=== PATIENT | female | born 1955 | race Caucasian/White ===

== ENCOUNTER 2017-04-30 22:08 | Emergency (ER) | payer OTHER ==
[~2017-04-30] VITALS: Ht 152.4 cm; Wt 92.9 kg
[~2017-04-30 22:08] MED LIST: ASPI325T45 PO; ATEN50TA8 PO; CALC-20 PO; CHOL200010 PO; CITA20TA4 PO; CYAN500T13 PO; LISI-461 PO; MELO15TA4 PO; MULT-506 PO; OXYC-57 PO; SIMV20TA2 PO; TRAZ1TAB16 PO; ZNT/150 PO
[2017-04-30 22:14] VITALS: TEMP 36.8; Ht 152.4 cm; Wt 92.9 kg
[2017-05-01] MEDS ORDERED: OXYCODONE IR HOME PACK PO ONE (00:30)
[2017-05-01] MEDS ORDERED: AMOXICIL/CLAVU 875MG HOME PACK PO ONE (00:30)
[2017-05-01] MEDS ORDERED: AMPICILLIN/SULBACTAM SOD INJ 3,000 MG in SODIUM CHLORIDE 0.9% 100ML 100 ML IV ONE (00:30)
[2017-05-01 00:38] LABS: BASO % 0.2 %; BASO ABS # 0.03 K/uL (0-0.2); COMPLETE YES; EOS % 0.9 %; IG% 0.3 %; LYMPH % 27.2 %; LYMPH ABS # 4.18 K/uL (1.2-3.4); MEAN CELL VOLUME 94.5 fL (80-100); MEAN CORPUSCULAR HEMOGLOBIN 32.8 pg (25-34); MEAN CORPUSCULAR HGB CONC 34.7 g/dl (32-36); MEAN PLATELET VOLUME 10.2 fL (7.4-10.4); MONO % 10.3 %; NEUT % 61.1 %; PLATELET COUNT 234 K/uL (130-400); RED BLOOD COUNT 4.76 M/uL (4.2-5.4); WHITE BLOOD COUNT 15.36 K/uL (4.8-10.8)
[2017-05-01] MEDS ORDERED: AMOX875T PO (01:09)
[2017-05-01 01:12] LABS: BLOOD UREA NITROGEN 24 mg/dl (7-18); BUN/CREATININE RATIO 30.8 (10-20); CALCIUM 9.5 mg/dl (8.5-10.1); CARBON DIOXIDE 27 mmol/L (21-32); CHLORIDE 105 mmol/L (98-107); CREATININE 0.79 mg/dl (0.60-1.20); GLUCOSE 104 mg/dl (70-99); SODIUM 141 mmol/L (136-145)
[2017-05-01 01:13] VITALS: BP 138/76; PULSE 69; O2SAT 97
--- NOTE | 2017-05-01 04:14 | EMERGENCY ROOM VISIT NOTE ---
History Report prepared by Jonathan: Tiffany Downing Under the Supervision of: Dr. Ernie Lagos M.D. First contact with patient: 23:47 Chief Complaint: WOUND INFECTION Stated Complaint: PUNCTURES ON BACK OF LEFT KNEE MAY BE INFECTED Nursing Triage Summary: Pt reports she got bit by her cat behind left knee at 1215 today. Animal is fully vaccinated and is an indoor cat. Area is red and hot to the touch. 2 noted puncture wounds purple in color. History of Present Illness The patient is a 61 year old female who presents to the Emergency Room with complaints of an episode of a wound infection occurring this afternoon. The patient states that her cat and dog got into a fight and she stepped in between. She reports that the cat bit her in the back of her left leg. She notes that she went to her friend's this afternoon who cleaned it out. Her friend notes that it currently looks worse than it did this afternoon. The patient currently rates her pain as an 8/10 in severity. The patient denies any other bites anywhere else. Source of History: patient Onset: this afternoon Position: other (global) Symptom Intensity: 8/10 Quality: other (global) Timing: other (episode) Note: The patient denies any other bites. Review of Systems See HPI for pertinent positives and negatives. A total of six systems were reviewed and were otherwise negative. Past Medical & Surgical Medical Problems: (1) HTN (hypertension) (2) Rosacea Surgical Problems: (1) S/P cholecystectomy (2) S/P hysterectomy Family History Diabetes mellitus Hypertension Social History Smoking Status: Current Every Day Smoker Alcohol Use: occasionally Marital Status: single Housing Status: lives alone Occupation Status: employed Current/Historical Medications Scheduled Amoxicillin & Pot Clavulanate (Augmentin 875-125 mg), 875 MG PO BID Aspirin (Aspirin), 325 MG PO DAILY Atenolol (Tenormin), 50 MG PO DAILY Calcium Carbonate-Vitamin D (Calcium 600 + D), 1 TAB PO BID Cholecalciferol (Vitamin D), 2,000 INTER.UNIT PO DAILY Citalopram Hydrobromide (Citalopram Hydrobromide), 20 MG PO DAILY Cyanocobalamin (Vitamin B12 500MCG), 500 MCG PO DAILY Lisinopril (Zestril), 10 MG PO DAILY Meloxicam (Mobic), 15 MG PO DAILY Multivitamin (Multivitamin), 1 TAB PO DAILY Ranitidine Hcl (Zantac), 150 MG PO BID Simvastatin (Zocor), 20 MG PO HS Scheduled PRN Oxycodone/Acetaminophen 5MG/325MG (Percocet 5MG/325MG), 1-2 TABLETS PO Q6H PRN for Pain Trazodone Hcl (Desyrel), 100 MG PO HS PRN for Sleep Allergies Coded Allergies: No Known Allergies (Unverified , 02/18/15) Physical Exam Vital Signs Date Time Temp Pulse Resp B/P (MAP) Pulse Ox O2 Delivery O2 Flow Rate FiO2 05/01/17 01:13 69 20 138/76 97 Room Air 04/30/17 23:31 72 18 122/106 96 Room Air 04/30/17 22:14 36.8 74 18 129/65 97 Room Air Physical Exam GENERAL: Awake, alert, well-appearing, in no distress HENT: Normocephalic, atraumatic. Oropharynx unremarkable. EYES: Normal conjunctiva. Sclera non-icteric. NECK: Supple. No nuchal rigidity. FROM. No JVD. RESPIRATORY: Clear to auscultation. CARDIAC: Regular rate, normal rhythm. Extremities warm and well perfused. Pulses equal. ABDOMEN: Soft, non-distended. No tenderness to palpation. No rebound or guarding. No masses. MUSCULOSKELETAL: Chest examination reveals no tenderness. No joint edema. LOWER EXTREMITIES: Calves are equal size bilaterally and non-tender. No edema. Contusion and scratches to back or right leg popliteal. Left leg popliteal has erythema, contusion, and puncture wounds consistent with a cat bite. NEURO: Normal sensorium. No sensory or motor deficits noted. SKIN: No rash or jaundice noted. Medical Decision & Procedures Laboratory Results 05/01/17 00:25 Red Blood Count 4.76, Mean Corpuscular Volume 94.5, Mean Corpuscular Hemoglobin 32.8, Mean Corpuscular Hemoglobin Concent 34.7, Mean Platelet Volume 10.2, Neutrophils (%) (Auto) 61.1, Lymphocytes (%) (Auto) 27.2, Monocytes (%) (Auto) 10.3, Eosinophils (%) (Auto) 0.9, Basophils (%) (Auto) 0.2, Neutrophils # (Auto ) 9.39, Lymphocytes # (Auto) 4.18, Monocytes # (Auto) 1.58, Eosinophils # (Auto ) 0.14, Basophils # (Auto) 0.03 05/01/17 00:25 Test 05/01/17 00:25 White Blood Count 15.36 K/uL (4.8-10.8) Red Blood Count 4.76 M/uL (4.2-5.4) Hemoglobin 15.6 g/dL (12.0-16.0) Hematocrit 45.0 % (37-47) Mean Corpuscular Volume 94.5 fL (80-100) Mean Corpuscular Hemoglobin 32.8 pg (25-34) Mean Corpuscular Hemoglobin Concent 34.7 g/dl (32-36) Platelet Count 234 K/uL (130-400) Mean Platelet Volume 10.2 fL (7.4-10.4) Neutrophils (%) (Auto) 61.1 % Lymphocytes (%) (Auto) 27.2 % Monocytes (%) (Auto) 10.3 % Eosinophils (%) (Auto) 0.9 % Basophils (%) (Auto) 0.2 % Neutrophils # (Auto) 9.39 K/uL (1.4-6.5) Lymphocytes # (Auto) 4.18 K/uL (1.2-3.4) Monocytes # (Auto) 1.58 K/uL (0.11-0.59) Eosinophils # (Auto) 0.14 K/uL (0-0.5) Basophils # (Auto) 0.03 K/uL (0-0.2) RDW Standard Deviation 43.1 fL (36.4-46.3) RDW Coefficient of Variation 12.5 % (11.5-14.5) Immature Granulocyte % (Auto) 0.3 % Immature Granulocyte # (Auto) 0.04 K/uL (0.00-0.02) Anion Gap 9.0 mmol/L (3-11) Est Creatinine Clear Calc Drug Dose 77.1 ml/min Estimated GFR () 94.3 Estimated GFR (Non- 81.4 BUN/Creatinine Ratio 30.8 (10-20) Calcium Level 9.5 mg/dl (8.5-10.1) Medications Administered Medications (Trade) Dose Ordered Sig/Gustavo Route Start Time Stop Time Status Last Admin Dose Admin Ampicillin Sodium/ Sulbactam Sodium 3000 mg/Sodium Chloride 108 ml @ 200 mls/hr ONE ONCE IV 05/01/17 00:30 05/01/17 01:02 DC 05/01/17 00:50 200 MLS/HR Amoxicillin/ Clavulanate Potassium (Augmentin 875MG Home Pack) 1 homepack UD ONCE PO 05/01/17 00:30 05/01/17 00:31 DC 05/01/17 01:09 1 HOMEPACK Oxycodone HCl (Roxicodone Immediate Rel 5MG Home Pack) 1 homepack UD ONCE PO 05/01/17 00:30 05/01/17 00:31 DC 05/01/17 01:09 1 HOMEPACK ED Course 0016: The patient was evaluated in room A9B. A complete history and physical exam was performed. 0030: Ordered Oxycodone HCl 1 homepack PO, Amoxicillin/ Clavulanate Potassium 1 homepack PO, Ampicillin Sodium/ Sulbactam Sodium 3000 mg/ Sodium Chloride 108 ml @ 200 mls/hr IV. 0120: I reevaluated the patient. Discussed results and discharge instructions: She verbalized understanding and agreement. The patient is ready for discharge. Medical Decision Medication Reconciliation: I attest that I have personally reviewed the patient' s current medication list Blood pressure screening: Patient was found to have an elevated blood pressure and was referred to their primary doctor for recheck and further treatment. Triage Nursing notes reviewed and agree them. The patient's history was concerning for swelling and redness of the skin. Differential diagnosis: Etiologies such as cellulitis, necrotizing fasciitis, abscess, MRSA infection, dermatitis, drug eruption, as well as others were entertained.. Physical examination: The physical examination was consistent with cellulitis ER treatment provided: IV Unasyn Augmentin home pack Oxycodone home pack On reassessment the patient felt well. Tetanus up-to-date Diagnostics interpreted by me: The labs revealed a moderate leukocytosis. This appears to be isolated cellulitis from a cat bite. The animal is hers and is healthy. By the evaluation outlined above emergent etiologies such as abscess, necrotizing fasciitis, DVT, as well as others were deemed relatively unlikely. The patient was informed about the findings as listed above. All questions were answered and she was pleased with the treatment. Return instructions were outlined and the patient was discharged in stable condition. Outpatient prescription management: Augmentin Oxycodone home pack given as the patient drove to the emergency department Referral: The patient was referred back to her primary care physician for follow-up in 2 to 3 days for a recheck of the current condition. Impression Primary Impression: Left leg cellulitis Additional Impression: Bite from cat Scribe Attestation The scribe's documentation has been prepared under my direction and personally reviewed by me in its entirety. I confirm that the note above accurately reflects all work, treatment, procedures, and medical decision making performed by me. Departure Information Dispostion Home / Self-Care Prescriptions Amoxicillin & Pot Clavulanate (Augmentin 875-125 mg) 1 Tab Tab 875 MG PO BID for 9 Days, #18 TAB Prov: Ernie Lagos MD 05/01/17 Referrals Elizabeth Combs M.D. (PCP) Forms HOME CARE DOCUMENTATION FORM, IMPORTANT VISIT INFORMATION, WORK / SCHOOL INSTRUCTIONS Patient Instructions My [facility] Additional Instructions CELLULITIS INSTRUCTIONS: Amoxicillin Clavulanate (Augmentin) 875mg: Take one pill twice daily for 10 days for your infection. All antibiotics can cause diarrhea. If this occurs and you feel worse or it does not resolve in 1-2 days follow up with your doctor or return to the Emergency Department as this could be signs of serious underlying problems. Any medication can cause an allergic reaction, stop the pills immediately and return to the ER for rash, hives, breathing difficulties, or swelling. Oxycodone (OxyIR) 5mg: Take 1-2 pills every four hours as needed for breakthrough pain. Avoid alcohol, operating machinery or dangerous equipment, working on ladders or roofs, DRIVING, or situations where being under the influence may be dangerous. It is recommended to use a stool softener such as Colace, 100mg twice daily while taking this medication to avoid constipation. Ibuprofen(Motrin, Advil) may be used for fever or pain. Use 600mg every six hours as needed. Take with food. Avoid using more than 2400mg in a 24 hour period. Do not use 2400mg per day for more than three consecutive days without physician direction. Prolonged inappropriate use can lead to stomach upset or ulcers. (AND/OR) Acetaminophen(Tylenol) may be used for fever or pain. Use 1000mg every six hours as needed. Avoid using more than 4000mg in a 24 hour period. Warm compresses to the affected area 4 times daily for 15-20 minutes. Rest and drink plenty of fluids. Continue current medications. Return to the ER for severe pain, persistent fevers, spreading redness, or any worsening of your condition. Follow up with your primary physician within 2-3 days for a recheck of the current condition. Problem Qualifiers Additional Impression: Bite from cat Encounter type: initial encounter Qualified Codes: W55.01XA - Bitten by cat , initial encounter
== END 2017-05-01 01:20 | disposition home or self-care (01) ==
LOC: C.EDB 22:09 → C.EDA 05-01 01:20
DX: L03.90 Cellulitis, unspecified (principal); W55.01XA Bitten by cat, initial encounter; I10 Essential (primary) hypertension; L71.9 Rosacea, unspecified; Z83.3 Family history of diabetes mellitus; Z82.49 Family history of ischemic heart disease and other diseases of the circulatory system; F17.200 Nicotine dependence, unspecified, uncomplicated; Z79.82 Long term (current) use of aspirin

== ENCOUNTER 2023-04-27 14:30 | Inpatient (IN) ==
[2023-04-27] MEDS ORDERED: SODIUM CHLORIDE 0.9% 1000ML 1,000 ML IV ONE ×3 (14:34→19:34)
[2023-04-27] MEDS ORDERED: SODIUM CHLORIDE 0.9% 1000ML 2,000 ML IV ONE (14:38)
[2023-04-27] MEDS ORDERED: PIPERACILLIN/TAZOBACTAM 4.5 GM/120 ML BAG IV ONE (14:38)
[2023-04-27] MEDS ORDERED: ONDANSETRON INJ 2 MG/ML 2 ML VIAL ONE (14:42)
--- NOTE | 2023-04-27 14:43 | Emergency Department Note ---
Impression & Plan Sepsis, Pyelonephritis, Acute hypotension ED Provider Note NAME: FANY PUGH AGE: 67 SEX: F : 1955 ARRIVES VIA: Ambulance INFORMANT: Patient, EMS ED PROVIDER(S): Daren Jennings DO CHIEF COMPLAINT: syncope HPI: Patient is a 67-year-old female with a past medical history of hyperlipidemia who presents to the ER for a syncopal episode. She has been having urinary symptoms which include frequency and dysuria for the past 2 to 3 days. She started on antibiotic today. She went to the doctor's office and became very lightheaded and passed out. She has vomited. She denies any headache or change in vision. No chest pain but does admit to shortness of breath with started around 1:00. She does have lower belly pain. No weakness or numbness in the arms or legs. No other exacerbating or remitting factors. PAST MEDICAL HISTORY:See Below PAST SURGICAL HISTORY:See Below FAMILY HISTORY:See Below SOCIAL HISTORY:See Below HOME MEDICATIONS:See Below ALLERGIES:See Below VITALS:See Below PHYSICAL EXAMINATION: GENERAL: Sitting up in bed, alert, chronically ill-appearing, disheveled EYE EXAM: normal conjunctiva. PERRL and EOM's grossly intact. OROPHARYNX: mucous membranes are dry NECK: supple, no nuchal rigidity, no adenopathy, non-tender LUNGS: Clear to auscultation. Normal chest wall mechanics HEART: no murmurs, S1 normal and S2 normal ABDOMEN: abdomen soft, non-tender, normo-active bowel sounds, no masses, no rebound or guarding. BACK: Back is symmetrical on inspection and there is no deformity, no midline tenderness, no CVA tenderness. SKIN: no rashes and no bruising UPPER EXTREMITIES: upper extremities are grossly normal. LOWER EXTREMITIES: No pitting edema. NEURO EXAM: Normal sensorium, cranial nerves II-XII intact, normal speech, no weakness of arms, no weakness of legs. No drift. MEDICAL DECISION MAKING: Patient is a 67-year-old female brought in by EMS found to be hypotensive and tachycardic upon arrival with systolic pressures in the 70s. IVs were established blood work was obtained. External records were reviewed from [facility] which shows that she had a UTI and just started on Bactrim. Labs show mild leukopenia 3.5 thousand. No significant anemia. INR unremarkable. ABG with pH 7.35 and oxygen saturation of 95%. BMP with a CO2 of 19 and a gap of 13. Lactate was elevated at 2.3. Patient was given 2 L of IV fluids. LFTs bilirubin was unremarkable. Troponin was negative. Pro-Hermelindo normal. UA with leukocytes whites but was contaminated with epithelial cells. COVID was negative. Patient was given IV Zosyn upon arrival. Her blood pressure responded after 1 L to the 140s. CT of the chest abdomen pelvis showed pyelonephritis. Patient was updated bedside. Patient was given Tylenol for the fever. She was admitted to the hospitalist for further evaluation management treatment. Triage Nursing notes reviewed. Limited review of prior medical records performed Vital Signs: reviewed and remarkable for no significant abnormalities Differential diagnosis: Differential diagnosis includes etiologies such as sepsis, UTI, pneumonia, metabolic, electrolyte abnormalities, cardiac sources, intracerebral event, toxicologic, neurological, as well as others were entertained. ER treatment provided: See below Diagnostics interpreted by me include EKG and cardiac monitoring as listed below: -Cardiac Monitoring: An order was placed for continuous cardiac monitoring. The monitor shows a rate of 90 with sinus rhythm. -ECG: Sinus rhythm rate of 96 Normal axis No PVCs Poor baseline inferior leads QTc 444 -Laboratory studies:Interpreted by me as stated above in MDM and shown below. Imaging studies: Xrays: As interpreted by me:none CTs show: CT angio of the chest per my read showed no obvious pneumonia CT angio of the chest and abdomen pelvis showed pyelonephritis per radiology Consultation(s): As described in MDM Procedures:none Critical Care: I have personally spent 32 minutes of critical care time in the direct management of this patient. This includes bedside care, interpretation of diagnostic studies, and testing, discussion with consultants, patient, and family members, and other required patient management activities. This 32 minutes is in excess of all separately billable procedures. Past Med/Surg History Medical History Chronic diastolic CHF (congestive heart failure) DM type 2 (diabetes mellitus, type 2) GERD (gastroesophageal reflux disease) HTN (hypertension) Hyperlipidemia MANN (nonalcoholic steatohepatitis) Surgical History History of shoulder surgery History of spinal fusion Postop course complicated by infection and sepsis S/P cholecystectomy S/P hysterectomy S/P rotator cuff repair Social History Smoking Status: Current every day smoker Feels Safe at Home: Yes Allergies Allergies Allergy/AdvReac Type Severity Reaction Status Date / Time No Known Allergies Allergy Mild Unverified 04/27/23 15:26 Home Meds Home Medications Medication Instructions Recorded Confirmed atenolol 50 mg tablet 50 mg PO QAM 06/30/20 04/27/23 atorvastatin 40 mg tablet 40 mg PO QAM 06/30/20 04/27/23 cholecalciferol (vitamin D3) 50 50 mcg PO QAM 06/30/20 04/27/23 mcg (2,000 unit) capsule (Vitamin D3) famotidine 20 mg tablet 20 mg PO AMHS 06/30/20 04/27/23 gabapentin 300 mg capsule 300 mg PO TID 06/30/20 04/27/23 multivitamin 1 tab PO QAM 06/30/20 04/27/23 trazodone 50 mg tablet 50 mg PO HS 06/30/20 04/27/23 calcium carb-vit D3-minerals 600 2.5 tab PO DAILY 04/27/23 04/27/23 mg calcium-200 unit tablet (Calcium 600 + Minerals) ferrous sulfate 325 mg (65 mg 325 mg PO BID 04/27/23 04/27/23 iron) tablet lisinopril 20 mg tablet 20 mg PO QAM 04/27/23 04/27/23 semaglutide 0.25 mg or 0.5 mg (2 1 mg subcut WK 04/27/23 04/27/23 mg/3 mL) subcutaneous pen injector (Ozempic) sertraline 100 mg tablet 100 mg PO DAILY 04/27/23 04/27/23 sulfamethoxazole 800 1 tab PO BID 04/27/23 04/27/23 mg-trimethoprim 160 mg tablet varenicline 0.5 mg (11)-1 mg (42) 1 ea PO UD 04/27/23 04/27/23 tablets in a dose pack Results & Data (ED) Vital Signs Vital Signs - 24 hr 04/27/23 14:34 04/27/23 15:16 04/27/23 15:16 Temperature Temperature Source Pulse Rate 96 H Pulse Rate [Apical] 99 H Pulse Rate from SpO2 Sensor Respiratory Rate 16 20 Respiratory Effort / Characteristics Non-Labored Spontaneous Respiratory Depth Normal Respiratory Pattern Regular Blood Pressure 71/52 L Blood Pressure [Left Arm] 135/112 H Blood Pressure Mean 58 Blood Pressure Mean [Left Arm] 119 Blood Pressure Position Sitting Pulse Oximetry 91 91 Oxygen Delivery Method Nasal Cannula Nasal Cannula Oxygen Flow Rate 2 2 Sepsis Recent Fever Within 48 Hours No Sepsis New/Unexplained Change in Mental Status N/A Sepsis Action Taken by Nursing No Action Required Pulse Oximetry Post Tiitration 04/27/23 15:38 04/27/23 16:00 04/27/23 16:07 Temperature 38.5 C H Temperature Source Rectal Pulse Rate 111 H Pulse Rate [Apical] 105 H Pulse Rate from SpO2 Sensor Respiratory Rate 20 Respiratory Effort / Characteristics Non-Labored Respiratory Depth Respiratory Pattern Blood Pressure Blood Pressure [Left Arm] 145/119 H Blood Pressure Mean Blood Pressure Mean [Left Arm] 127 Blood Pressure Position Pulse Oximetry 90 Oxygen Delivery Method Nasal Cannula Nasal Cannula Oxygen Flow Rate 2 2 Sepsis Recent Fever Within 48 Hours Sepsis New/Unexplained Change in Mental Status Sepsis Action Taken by Nursing Pulse Oximetry Post Tiitration 95 04/27/23 16:07 04/27/23 16:18 04/27/23 16:33 Temperature Temperature Source Pulse Rate Pulse Rate [Apical] 109 H 106 H 103 H Pulse Rate from SpO2 Sensor Respiratory Rate 20 25 H 24 Respiratory Effort / Characteristics Respiratory Depth Respiratory Pattern Blood Pressure Blood Pressure [Left Arm] 131/73 106/63 103/67 Blood Pressure Mean Blood Pressure Mean [Left Arm] 92 77 79 Blood Pressure Position Pulse Oximetry 95 96 96 Oxygen Delivery Method Nasal Cannula Nasal Cannula Nasal Cannula Oxygen Flow Rate 2 2 2 Sepsis Recent Fever Within 48 Hours Sepsis New/Unexplained Change in Mental Status Sepsis Action Taken by Nursing Pulse Oximetry Post Tiitration 04/27/23 17:33 04/27/23 15:12 04/27/23 15:13 Temperature 36.9 C Temperature Source Oral Pulse Rate 100 H 99 H 95 H Pulse Rate [Apical] Pulse Rate from SpO2 Sensor 96 H Respiratory Rate 33 H 27 H 37 H Respiratory Effort / Characteristics Respiratory Depth Respiratory Pattern Blood Pressure 94/68 L Blood Pressure [Left Arm] Blood Pressure Mean Blood Pressure Mean [Left Arm] Blood Pressure Position Pulse Oximetry 93 Oxygen Delivery Method Room Air Oxygen Flow Rate Sepsis Recent Fever Within 48 Hours Sepsis New/Unexplained Change in Mental Status Sepsis Action Taken by Nursing Pulse Oximetry Post Tiitration 04/27/23 15:13 04/27/23 15:34 04/27/23 15:37 Temperature Temperature Source Pulse Rate 108 H 107 H Pulse Rate [Apical] Pulse Rate from SpO2 Sensor Respiratory Rate 30 H 23 Respiratory Effort / Characteristics Respiratory Depth Respiratory Pattern Blood Pressure 135/112 H Blood Pressure [Left Arm] Blood Pressure Mean 119 Blood Pressure Mean [Left Arm] Blood Pressure Position Pulse Oximetry Oxygen Delivery Method Oxygen Flow Rate Sepsis Recent Fever Within 48 Hours Sepsis New/Unexplained Change in Mental Status Sepsis Action Taken by Nursing Pulse Oximetry Post Tiitration 04/27/23 15:37 04/27/23 15:40 04/27/23 15:40 Temperature Temperature Source Pulse Rate 108 H Pulse Rate [Apical] Pulse Rate from SpO2 Sensor Respiratory Rate 34 H Respiratory Effort / Characteristics Respiratory Depth Respiratory Pattern Blood Pressure 145/119 H 146/72 H Blood Pressure [Left Arm] Blood Pressure Mean 127 96 Blood Pressure Mean [Left Arm] Blood Pressure Position Pulse Oximetry Oxygen Delivery Method Oxygen Flow Rate Sepsis Recent Fever Within 48 Hours Sepsis New/Unexplained Change in Mental Status Sepsis Action Taken by Nursing Pulse Oximetry Post Tiitration 04/27/23 15:45 04/27/23 15:45 04/27/23 15:50 Temperature Temperature Source Pulse Rate 112 H Pulse Rate [Apical] Pulse Rate from SpO2 Sensor Respiratory Rate 31 H Respiratory Effort / Characteristics Respiratory Depth Respiratory Pattern Blood Pressure 140/74 153/71 H Blood Pressure [Left Arm] Blood Pressure Mean 96 98 Blood Pressure Mean [Left Arm] Blood Pressure Position Pulse Oximetry Oxygen Delivery Method Oxygen Flow Rate Sepsis Recent Fever Within 48 Hours Sepsis New/Unexplained Change in Mental Status Sepsis Action Taken by Nursing Pulse Oximetry Post Tiitration 04/27/23 15:50 04/27/23 15:55 04/27/23 15:55 Temperature Temperature Source Pulse Rate 113 H 111 H Pulse Rate [Apical] Pulse Rate from SpO2 Sensor Respiratory Rate 23 35 H Respiratory Effort / Characteristics Respiratory Depth Respiratory Pattern Blood Pressure 120/84 Blood Pressure [Left Arm] Blood Pressure Mean 96 Blood Pressure Mean [Left Arm] Blood Pressure Position Pulse Oximetry Oxygen Delivery Method Oxygen Flow Rate Sepsis Recent Fever Within 48 Hours Sepsis New/Unexplained Change in Mental Status Sepsis Action Taken by Nursing Pulse Oximetry Post Tiitration 04/27/23 16:00 04/27/23 16:00 04/27/23 16:05 Temperature Temperature Source Pulse Rate 117 H Pulse Rate [Apical] Pulse Rate from SpO2 Sensor Respiratory Rate 25 H Respiratory Effort / Characteristics Respiratory Depth Respiratory Pattern Blood Pressure 146/88 H 131/73 Blood Pressure [Left Arm] Blood Pressure Mean 107 92 Blood Pressure Mean [Left Arm] Blood Pressure Position Pulse Oximetry Oxygen Delivery Method Oxygen Flow Rate Sepsis Recent Fever Within 48 Hours Sepsis New/Unexplained Change in Mental Status Sepsis Action Taken by Nursing Pulse Oximetry Post Tiitration 04/27/23 16:05 04/27/23 16:10 04/27/23 16:10 Temperature Temperature Source Pulse Rate 110 H 107 H Pulse Rate [Apical] Pulse Rate from SpO2 Sensor 107 H Respiratory Rate 20 27 H Respiratory Effort / Characteristics Respiratory Depth Respiratory Pattern Blood Pressure 121/75 Blood Pressure [Left Arm] Blood Pressure Mean 90 Blood Pressure Mean [Left Arm] Blood Pressure Position Pulse Oximetry 96 Oxygen Delivery Method Nasal Cannula Oxygen Flow Rate 2 Sepsis Recent Fever Within 48 Hours Sepsis New/Unexplained Change in Mental Status Sepsis Action Taken by Nursing Pulse Oximetry Post Tiitration 04/27/23 16:15 04/27/23 16:15 04/27/23 16:25 Temperature Temperature Source Pulse Rate 109 H 104 H Pulse Rate [Apical] Pulse Rate from SpO2 Sensor 109 H 104 H Respiratory Rate 27 H 39 H Respiratory Effort / Characteristics Respiratory Depth Respiratory Pattern Blood Pressure 106/63 Blood Pressure [Left Arm] Blood Pressure Mean 77 Blood Pressure Mean [Left Arm] Blood Pressure Position Pulse Oximetry 96 96 Oxygen Delivery Method Nasal Cannula Nasal Cannula Oxygen Flow Rate 2 2 Sepsis Recent Fever Within 48 Hours Sepsis New/Unexplained Change in Mental Status Sepsis Action Taken by Nursing Pulse Oximetry Post Tiitration 04/27/23 16:30 04/27/23 16:30 04/27/23 16:40 Temperature Temperature Source Pulse Rate 105 H 105 H Pulse Rate [Apical] Pulse Rate from SpO2 Sensor 105 H 105 H Respiratory Rate 19 44 H Respiratory Effort / Characteristics Respiratory Depth Respiratory Pattern Blood Pressure 103/67 Blood Pressure [Left Arm] Blood Pressure Mean 78 Blood Pressure Mean [Left Arm] Blood Pressure Position Pulse Oximetry 98 96 Oxygen Delivery Method Nasal Cannula Oxygen Flow Rate 2 Sepsis Recent Fever Within 48 Hours Sepsis New/Unexplained Change in Mental Status Sepsis Action Taken by Nursing Pulse Oximetry Post Tiitration 04/27/23 16:45 04/27/23 16:45 04/27/23 16:50 Temperature Temperature Source Pulse Rate 103 H 102 H Pulse Rate [Apical] Pulse Rate from SpO2 Sensor 103 H 103 H Respiratory Rate 34 H 23 Respiratory Effort / Characteristics Respiratory Depth Respiratory Pattern Blood Pressure 117/70 Blood Pressure [Left Arm] Blood Pressure Mean 77 Blood Pressure Mean [Left Arm] Blood Pressure Position Pulse Oximetry 98 96 Oxygen Delivery Method Nasal Cannula Nasal Cannula Oxygen Flow Rate 2 2 Sepsis Recent Fever Within 48 Hours Sepsis New/Unexplained Change in Mental Status Sepsis Action Taken by Nursing Pulse Oximetry Post Tiitration 04/27/23 17:00 04/27/23 17:00 04/27/23 17:10 Temperature Temperature Source Pulse Rate 101 H 100 H Pulse Rate [Apical] Pulse Rate from SpO2 Sensor 101 H 100 H Respiratory Rate 25 H 39 H Respiratory Effort / Characteristics Respiratory Depth Respiratory Pattern Blood Pressure 136/73 Blood Pressure [Left Arm] Blood Pressure Mean 86 Blood Pressure Mean [Left Arm] Blood Pressure Position Pulse Oximetry 96 97 Oxygen Delivery Method Nasal Cannula Nasal Cannula Oxygen Flow Rate 2 2 Sepsis Recent Fever Within 48 Hours Sepsis New/Unexplained Change in Mental Status Sepsis Action Taken by Nursing Pulse Oximetry Post Tiitration 04/27/23 17:15 04/27/23 17:15 04/27/23 17:20 Temperature Temperature Source Pulse Rate 100 H 98 H Pulse Rate [Apical] Pulse Rate from SpO2 Sensor 100 H 98 H Respiratory Rate 33 H 37 H Respiratory Effort / Characteristics Respiratory Depth Respiratory Pattern Blood Pressure 128/72 Blood Pressure [Left Arm] Blood Pressure Mean 96 Blood Pressure Mean [Left Arm] Blood Pressure Position Pulse Oximetry 97 97 Oxygen Delivery Method Nasal Cannula Nasal Cannula Oxygen Flow Rate 2 2 Sepsis Recent Fever Within 48 Hours Sepsis New/Unexplained Change in Mental Status Sepsis Action Taken by Nursing Pulse Oximetry Post Tiitration 04/27/23 17:30 04/27/23 17:30 Temperature Temperature Source Pulse Rate 98 H Pulse Rate [Apical] Pulse Rate from SpO2 Sensor 100 H Respiratory Rate 31 H Respiratory Effort / Characteristics Respiratory Depth Respiratory Pattern Blood Pressure 113/73 Blood Pressure [Left Arm] Blood Pressure Mean 82 Blood Pressure Mean [Left Arm] Blood Pressure Position Pulse Oximetry 99 Oxygen Delivery Method Nasal Cannula Nasal Cannula Oxygen Flow Rate 2 2 Sepsis Recent Fever Within 48 Hours Sepsis New/Unexplained Change in Mental Status Sepsis Action Taken by Nursing Pulse Oximetry Post Tiitration Laboratory Data 04/27/23 15:13 04/27/23 15:13 Lab Results 04/27/23 04/27/2323 Range/Units 15:02 15:13 15:13 WBC 3.54 L (4.8-10.8) K/ul RBC 4.82 (4.20-5.40) M/uL Hgb 15.5 (12.0-16.0) g/dl POC Hgb (12.0-16.0) g/dl Hct 45.4 (37.0-47.0) % POC Hct (37-47) % MCV 94.2 (80.0-100.0) fL MCH 32.2 (25.0-34.0) pg MCHC 34.1 (32.0-36.0) g/dL RDW Std Deviation 41.7 (36.4-46.3) fL RDW Coeff of [place] 12.0 (11.5-14.5) % Plt Count 141 (130-400) K/uL MPV 10.2 (9.4-12.4) fL Immature Gran % (Auto) 0.8 % Neut % (Auto) 73.8 % Lymph % (Auto) 24.0 % Carbon % (Auto) 1.1 % Eos % (Auto) 0.0 % Baso % (Auto) 0.3 % Neut # (Auto) 2.61 (1.40-6.50) K/uL Lymph # (Auto) 0.85 L (1.2-3.4) K/uL Carbon # (Auto) 0.04 L (0.11-0.59) K/uL Eos # (Auto) 0.00 (0-0.50) K/uL Baso # (Auto) 0.01 (0-0.2) K/uL Immature Gran # (Auto) 0.03 (0.01-0.20) K/uL PT (9.0-12.0) Seconds INR (0.9-1.1) APTT (21.0-31.0) Seconds PTT Ratio ABG pH (7.35-7.45) ABG pCO2 (35-46) mmHg ABG pO2 (80-95) mmHg ABG HCO3 (19-24) mmol/L ABG O2 Saturation (90-95) % ABG Base Excess (-9-1.8) mEq/L Jonah Test (Pos) Oxygen Given POC Sodium (135-144) mmol/L Sodium 138 (136-145) mmol/L POC Potassium (3.3-5.0) mmol/L Potassium 3.8 (3.5-5.1) mmol/L POC Chloride (101-112) mmol/L Chloride 106 (98-107) mmol/L Carbon Dioxide 19 L (21-32) mmol/L POC Total CO2 (24-31) mmol/L Anion Gap 13 H (3-11) POC Anion Gap (16-25) mmol/L POC BUN (7-18) mg/dl BUN 20 (6-23) mg/dl Creatinine 1.10 (0.6-1.2) mg/dl POC Creatinine (0.6-1.3) mg/dl Est Cr Clr Drug Dosing 49.0 ml/min Est GFR ( Amer) 60.6 ml/min Est GFR (Non-Af Amer) 52.3 ml/min BUN/Creatinine Ratio 18.2 (10-20) Glucose 194 H (70-99(Fasting)) mg/dl POC Glucose (other) (70-99) mg/dl Lactate (0.4-2.0) mmol/L Calcium 9.3 (8.6-10.3) mg/dl POC Ioniz Calcium [place] (1.12-1.32) mmol/l Magnesium 1.9 (1.7-2.4) mg/dl Total Bilirubin 0.4 (0.2-1.0) mg/dl Direct Bilirubin 0.1 (0-0.2) mg/dl AST 20 (13-39) U/L ALT 23 (7-52) U/L Alkaline Phosphatase 63 (34-104) U/L Troponin I High Sens 5.7 (0-14) pg/ml B-Natriuretic Peptide (0-100) pg/ml Total Protein 7.0 (6.0-8.3) gm/dl Albumin 4.1 (3.4-5.0) gm/dl Procalcitonin (0-0.5) ng/ml Urine Color Urine Appearance (Clear) Urine pH (4.5-7.5) Ur Specific [place] (1.000-1.030) Urine Protein (Negative) Urine Glucose (UA) (Negative) Urine Ketones (Negative) Urine Blood (Negative) Urine Nitrite (Negative) Urine Bilirubin (Negative) Urine Urobilinogen (Negative) Ur Leukocyte Esterase (Negative) Urine WBC (Auto) (0-5) /hpf Urine RBC (Auto) (0-4) /hpf U Hyaline Cast (Auto) (0-5) /lpf U Epithel Cells (Auto) (0-5) /lpf Urine Bacteria (Auto) (Negative) Urine Yeast SARS-CoV-2, RNA, NAAT NEGATIVE (NEGATIVE) Blood Type Antibody Screen 04/27/23 04/27/23 04/27/23 Range/Units 15:13 15:52 15:52 WBC (4.8-10.8) K/ul RBC (4.20-5.40) M/uL Hgb (12.0-16.0) g/dl POC Hgb 16.0 (12.0-16.0) g/dl Hct (37.0-47.0) % POC Hct 47 (37-47) % MCV (80.0-100.0) fL MCH (25.0-34.0) pg MCHC (32.0-36.0) g/dL RDW Std Deviation (36.4-46.3) fL RDW Coeff of [place] (11.5-14.5) % Plt Count (130-400) K/uL MPV (9.4-12.4) fL Immature Gran % (Auto) % Neut % (Auto) % Lymph % (Auto) % Carbon % (Auto) % Eos % (Auto) % Baso % (Auto) % Neut # (Auto) (1.40-6.50) K/uL Lymph # (Auto) (1.2-3.4) K/uL Carbon # (Auto) (0.11-0.59) K/uL Eos # (Auto) (0-0.50) K/uL Baso # (Auto) (0-0.2) K/uL Immature Gran # (Auto) (0.01-0.20) K/uL PT 10.6 (9.0-12.0) Seconds INR 1.0 (0.9-1.1) APTT 22.5 (21.0-31.0) Seconds PTT Ratio 0.8 ABG pH (7.35-7.45) ABG pCO2 (35-46) mmHg ABG pO2 (80-95) mmHg ABG HCO3 (19-24) mmol/L ABG O2 Saturation (90-95) % ABG Base Excess (-9-1.8) mEq/L Jonah Test (Pos) Oxygen Given POC Sodium 135 (135-144) mmol/L Sodium (136-145) mmol/L POC Potassium 6.0 H (3.3-5.0) mmol/L Potassium (3.5-5.1) mmol/L POC Chloride 110 (101-112) mmol/L Chloride (98-107) mmol/L Carbon Dioxide (21-32) mmol/L POC Total CO2 18 L (24-31) mmol/L Anion Gap (3-11) POC Anion Gap 14.0 L (16-25) mmol/L POC BUN 29 H (7-18) mg/dl BUN (6-23) mg/dl Creatinine (0.6-1.2) mg/dl POC Creatinine 0.9 (0.6-1.3) mg/dl Est Cr Clr Drug Dosing ml/min Est GFR ( Amer) ml/min Est GFR (Non-Af Amer) ml/min BUN/Creatinine Ratio (10-20) Glucose (70-99(Fasting)) mg/dl POC Glucose (other) 177 H (70-99) mg/dl Lactate 2.4 H* (0.4-2.0) mmol/L Calcium (8.6-10.3) mg/dl POC Ioniz Calcium [place] 0.86 L (1.12-1.32) mmol/l Magnesium (1.7-2.4) mg/dl Total Bilirubin (0.2-1.0) mg/dl Direct Bilirubin (0-0.2) mg/dl AST (13-39) U/L ALT (7-52) U/L Alkaline Phosphatase (34-104) U/L Troponin I High Sens (0-14) pg/ml B-Natriuretic Peptide (0-100) pg/ml Total Protein (6.0-8.3) gm/dl Albumin (3.4-5.0) gm/dl Procalcitonin (0-0.5) ng/ml Urine Color Urine Appearance (Clear) Urine pH (4.5-7.5) Ur Specific [place] (1.000-1.030) Urine Protein (Negative) Urine Glucose (UA) (Negative) Urine Ketones (Negative) Urine Blood (Negative) Urine Nitrite (Negative) Urine Bilirubin (Negative) Urine Urobilinogen (Negative) Ur Leukocyte Esterase (Negative) Urine WBC (Auto) (0-5) /hpf Urine RBC (Auto) (0-4) /hpf U Hyaline Cast (Auto) (0-5) /lpf U Epithel Cells (Auto) (0-5) /lpf Urine Bacteria (Auto) (Negative) Urine Yeast SARS-CoV-2, RNA, NAAT (NEGATIVE) Blood Type Antibody Screen 04/27/23 04/27/23 04/27/23 Range/Units 15:52 15:52 15:52 WBC (4.8-10.8) K/ul RBC (4.20-5.40) M/uL Hgb (12.0-16.0) g/dl POC Hgb (12.0-16.0) g/dl Hct (37.0-47.0) % POC Hct (37-47) % MCV (80.0-100.0) fL MCH (25.0-34.0) pg MCHC (32.0-36.0) g/dL RDW Std Deviation (36.4-46.3) fL RDW Coeff of [place] (11.5-14.5) % Plt Count (130-400) K/uL MPV (9.4-12.4) fL Immature Gran % (Auto) % Neut % (Auto) % Lymph % (Auto) % Carbon % (Auto) % Eos % (Auto) % Baso % (Auto) % Neut # (Auto) (1.40-6.50) K/uL Lymph # (Auto) (1.2-3.4) K/uL Carbon # (Auto) (0.11-0.59) K/uL Eos # (Auto) (0-0.50) K/uL Baso # (Auto) (0-0.2) K/uL Immature Gran # (Auto) (0.01-0.20) K/uL PT (9.0-12.0) Seconds INR (0.9-1.1) APTT (21.0-31.0) Seconds PTT Ratio ABG pH (7.35-7.45) ABG pCO2 (35-46) mmHg ABG pO2 (80-95) mmHg ABG HCO3 (19-24) mmol/L ABG O2 Saturation (90-95) % ABG Base Excess (-9-1.8) mEq/L Jonah Test (Pos) Oxygen Given POC Sodium (135-144) mmol/L Sodium (136-145) mmol/L POC Potassium (3.3-5.0) mmol/L Potassium (3.5-5.1) mmol/L POC Chloride (101-112) mmol/L Chloride (98-107) mmol/L Carbon Dioxide (21-32) mmol/L POC Total CO2 (24-31) mmol/L Anion Gap (3-11) POC Anion Gap (16-25) mmol/L POC BUN (7-18) mg/dl BUN (6-23) mg/dl Creatinine (0.6-1.2) mg/dl POC Creatinine (0.6-1.3) mg/dl Est Cr Clr Drug Dosing ml/min Est GFR ( Amer) ml/min Est GFR (Non-Af Amer) ml/min BUN/Creatinine Ratio (10-20) Glucose (70-99(Fasting)) mg/dl POC Glucose (other) (70-99) mg/dl Lactate (0.4-2.0) mmol/L Calcium (8.6-10.3) mg/dl POC Ioniz Calcium [place] (1.12-1.32) mmol/l Magnesium (1.7-2.4) mg/dl Total Bilirubin (0.2-1.0) mg/dl Direct Bilirubin (0-0.2) mg/dl AST (13-39) U/L ALT (7-52) U/L Alkaline Phosphatase (34-104) U/L Troponin I High Sens (0-14) pg/ml B-Natriuretic Peptide 49 (0-100) pg/ml Total Protein (6.0-8.3) gm/dl Albumin (3.4-5.0) gm/dl Procalcitonin 0.45 (0-0.5) ng/ml Urine Color Urine Appearance (Clear) Urine pH (4.5-7.5) Ur Specific [place] (1.000-1.030) Urine Protein (Negative) Urine Glucose (UA) (Negative) Urine Ketones (Negative) Urine Blood (Negative) Urine Nitrite (Negative) Urine Bilirubin (Negative) Urine Urobilinogen (Negative) Ur Leukocyte Esterase (Negative) Urine WBC (Auto) (0-5) /hpf Urine RBC (Auto) (0-4) /hpf U Hyaline Cast (Auto) (0-5) /lpf U Epithel Cells (Auto) (0-5) /lpf Urine Bacteria (Auto) (Negative) Urine Yeast SARS-CoV-2, RNA, NAAT (NEGATIVE) Blood Type A Negative Antibody Screen NEGATIVE 04/27/23 04/27/23 04/27/23 Range/Units 15:53 16:00 17:53 WBC (4.8-10.8) K/ul RBC (4.20-5.40) M/uL Hgb (12.0-16.0) g/dl POC Hgb (12.0-16.0) g/dl Hct (37.0-47.0) % POC Hct (37-47) % MCV (80.0-100.0) fL MCH (25.0-34.0) pg MCHC (32.0-36.0) g/dL RDW Std Deviation (36.4-46.3) fL RDW Coeff of [place] (11.5-14.5) % Plt Count (130-400) K/uL MPV (9.4-12.4) fL Immature Gran % (Auto) % Neut % (Auto) % Lymph % (Auto) % Carbon % (Auto) % Eos % (Auto) % Baso % (Auto) % Neut # (Auto) (1.40-6.50) K/uL Lymph # (Auto) (1.2-3.4) K/uL Carbon # (Auto) (0.11-0.59) K/uL Eos # (Auto) (0-0.50) K/uL Baso # (Auto) (0-0.2) K/uL Immature Gran # (Auto) (0.01-0.20) K/uL PT (9.0-12.0) Seconds INR (0.9-1.1) APTT (21.0-31.0) Seconds PTT Ratio ABG pH 7.35 (7.35-7.45) ABG pCO2 38 (35-46) mmHg ABG pO2 69 L (80-95) mmHg ABG HCO3 21 (19-24) mmol/L ABG O2 Saturation 95.5 H (90-95) % ABG Base Excess -4.2 (-9-1.8) mEq/L Jonah Test POS (Pos) Oxygen Given 2L O2 POC Sodium (135-144) mmol/L Sodium (136-145) mmol/L POC Potassium (3.3-5.0) mmol/L Potassium (3.5-5.1) mmol/L POC Chloride (101-112) mmol/L Chloride (98-107) mmol/L Carbon Dioxide (21-32) mmol/L POC Total CO2 (24-31) mmol/L Anion Gap (3-11) POC Anion Gap (16-25) mmol/L POC BUN (7-18) mg/dl BUN (6-23) mg/dl Creatinine (0.6-1.2) mg/dl POC Creatinine (0.6-1.3) mg/dl Est Cr Clr Drug Dosing ml/min Est GFR ( Amer) ml/min Est GFR (Non-Af Amer) ml/min BUN/Creatinine Ratio (10-20) Glucose (70-99(Fasting)) mg/dl POC Glucose (other) (70-99) mg/dl Lactate 4.3 H* (0.4-2.0) mmol/L Calcium (8.6-10.3) mg/dl POC Ioniz Calcium Grover (1.12-1.32) mmol/l Magnesium (1.7-2.4) mg/dl Total Bilirubin (0.2-1.0) mg/dl Direct Bilirubin (0-0.2) mg/dl AST (13-39) U/L ALT (7-52) U/L Alkaline Phosphatase (34-104) U/L Troponin I High Sens (0-14) pg/ml B-Natriuretic Peptide (0-100) pg/ml Total Protein (6.0-8.3) gm/dl Albumin (3.4-5.0) gm/dl Procalcitonin (0-0.5) ng/ml Urine Color Yellow Urine Appearance Turbid A (Clear) Urine pH 6.0 (4.5-7.5) Ur Specific [place] > 1.045 H (1.000-1.030) Urine Protein 2+ H (Negative) Urine Glucose (UA) Negative (Negative) Urine Ketones Negative (Negative) Urine Blood 2+ H (Negative) Urine Nitrite Negative (Negative) Urine Bilirubin Negative (Negative) Urine Urobilinogen Negative (Negative) Ur Leukocyte Esterase 3+ H (Negative) Urine WBC (Auto) >30 H (0-5) /hpf Urine RBC (Auto) 10-30 H (0-4) /hpf U Hyaline Cast (Auto) 1-5 (0-5) /lpf U Epithel Cells (Auto) >30 H (0-5) /lpf Urine Bacteria (Auto) Negative (Negative) Urine Yeast Not Reportable SARS-CoV-2, RNA, NAAT (NEGATIVE) Blood Type Antibody Screen Administered Medications Sodium Chloride (Nss 1000ml) 1,000 mls @ 999 mls/hr IV .Q1H1M ONE Stop: 04/27/23 19:16 Last Admin: 04/27/23 18:35 Dose: 999 mls/hr Documented By: [employer]ING [employer] 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 Discontinued Medications Acetaminophen (Acetaminophen 325 Mg Tab) 650 mg PO NOW STA Stop: 04/27/23 15:22 Last Admin: 04/27/23 15:47 Dose: 650 mg Documented By: Sodium Chloride (Nss 1000ml) 1,000 mls @ 999 mls/hr IV .Q1H1M ONE Stop: 04/27/23 15:34 Last Infusion: 04/27/23 15:52 Dose: 0 mls/hr Documented By: Admin: 04/27/23 14:51 Dose: 999 mls/hr Documented By: RAFIQ Piperacillin Sod/Tazobactam Sod (Zosyn) 4.5 gm in 120 mls @ 240 mls/hr IV NOW ONE Stop: 04/27/23 15:07 Last Infusion: 04/27/23 15:21 Dose: 0 mls/hr Documented By: Admin: 04/27/23 14:51 Dose: 240 mls/hr Documented By: RAFIQ Sodium Chloride (Nss 1000ml) 2,000 mls @ 999 mls/hr IV .Q2H1M ONE Stop: 04/27/23 16:38 Last Infusion: 04/27/23 17:39 Dose: 0 mls/hr 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 Sepsis. COMPARISON STUDY: No priors. TECHNIQUE: Following the IV administration of 119 cc of Optiray 320, CT scan of the abdomen and pelvis is performed from the lung bases to the proximal femora. Images are reviewed in the axial, sagittal, and coronal planes. IV contrast was administered without complication. A dose lowering technique was utilized adhering to the principles of ALARA. FINDINGS: Lung bases: The heart is normal in size and without pericardial effusion. The lung bases are clear. There is a small hiatal hernia. Liver: The contrast-enhanced liver is normal in size, contour, and attenuation. There is mild intrahepatic biliary ductal dilatation. The hepatic veins and portal veins are patent. Gallbladder: Surgically absent noting clips in the gallbladder fossa. Spleen: Normal in size and attenuation. Pancreas: Unremarkable. Adrenal glands: Unremarkable. Kidneys: The contrast enhanced kidneys are normal in size and without hydronephrosis. Urothelial thickening and enhancement is seen involving both ureters. Urothelial thickening and enhancement is also seen in the renal pelvis bilaterally. This indicates ascending urinary tract infection with bilateral py elitis/pyelonephritis. Heterogeneous enhancement is seen in the lower pole of the left kidney. There is mild nonspecific bilateral perinephric stranding. Scattered subcentimeter cortical hypodensities likely represent cysts but are too small for definitive characterization. Abdominal vasculature: The abdominal aorta is normal in course and caliber noting mild atherosclerotic calcification. Bowel: There is mild to moderate colonic fecal retention. No bowel obstruction is seen. There is liquid stool in the right colon. There are mildly inflamed loops of jejunum in the left midabdomen seen on axial images #188 and #206. The appendix is well-visualized and normal. Peritoneum: There is no intraperitoneal free air or abdominal ascites. Lymphadenopathy: None. Pelvic viscera: The bladder wall is thickened and hyperemic. The uterus is surgically absent. No adnexal lesion is seen. Skeletal structures: The skeletal structures are osteopenic. Postsurgical and spondylotic change is noted in the thoracic spine. No lytic or blastic lesions are seen. IMPRESSION: 1. There is evidence of cystitis with bilateral ascending urinary tract infection and pyelitis/pyelonephritis of the kidneys. Correlate with clinical findings and urinalysis. 2. There are mildly inflamed appearing loops of jejunum in the left mid abdomen. Correlate clinically for evidence of a nonspecific enteritis. 3. Additional findings as above. ACT 112: Negative or not required by law. Electronically signed by: Zev Raya M.D. 04/27/2023 3:43 PM Chest CTA 04/27/23 14:38 CT ANGIOGRAPHY OF THE CHEST, PULMONARY EMBOLUS PROTOCOL CLINICAL HISTORY: Sepsis. Hypertension. Evaluate for pulmonary embolus. COMPARISON STUDY: Chest CT August 03, 2016. TECHNIQUE: Following IV administration of 119 mL of Optiray, helical axial images of the chest were obtained utilizing the pulmonary embolus protocol. Max imal intensity projections and sagittal and coronal reformats were viewed on an independent 3D workstation. IV contrast was administered without complication. Automated exposure control was utilized for the study. A dose lowering technique was utilized adhering to the principles of ALARA. CT DOSE: 2308.91 mGy.cm FINDINGS: No pulmonary emboli are identified. There is no thoracic aortic dissection. Size of the heart is normal. There is a small hiatal hernia. Mildly enlarged mediastinal lymph nodes are stable to slightly decreased in size since CT of August 03, 2016. Index right paratracheal lymph node on image 173 of 229 measures 1.5 cm in short axis diameter. Central airways are patent. There is no pneumothorax or pleural effusion. There is no consolidation to suggest pneumonia. No acute fractures are identified within the bony thorax. The abdomen and pelvis CT will be reported separately. IMPRESSION: 1. No pulmonary emboli identified. 2. No acute intrathoracic findings. 3. Multiple mildly enlarged mediastinal lymph nodes, stable to slightly decreased in size since CT of August 03, 2016. Therefore, these are considered benign. ACT 112: Negative or not required by law. Electronically signed by: Reymundo Joel M.D. 04/27/2023 3:43 PM Discharge Plan Visit Data Chief Complaint: Syncope Stated Complaint: SYNCOPE, HYPOTENSION, WEAKNESS ED Provider: Daren Jennings Discharge Problem: Sepsis, Pyelonephritis, Acute hypotension Patient Disposition: Admitted As Inpatient Discharge Instructions Interventions: ED Discharge Assessment Last Done: 04/27/23 17:33 Forms Stand Alone Forms: My [facility] Prescriptions Prescriptions: No Action multivitamin Tablet 1 tab PO QAM atorvastatin 40 mg tablet 40 mg PO QAM trazodone 50 mg tablet 50 mg PO HS famotidine 20 mg tablet 20 mg PO AMHS gabapentin 300 mg capsule 300 mg PO TID atenolol 50 mg tablet 50 mg PO QAM cholecalciferol (vitamin D3) [Vitamin D3] 50 mcg (2,000 unit) Capsule 50 mcg PO QAM sulfamethoxazole-trimethoprim 800-160 mg tablet 1 tab PO BID Rx Instructions: ordered 04/26/23 take for 3 days end date 04/29/23 varenicline [Chantix Starting Month Edward] 0.5 mg (11)- 1 mg (42) Tablets,Dose Pack 1 ea PO UD lisinopril 20 mg tablet 20 mg PO QAM ferrous sulfate 325 mg (65 mg iron) Tablet 325 mg PO BID Ozempic 0.25 mg or 0.5 mg (2 mg/3 mL) pen injector 1 mg SUBCUT WK Calcium 600 + Minerals 600 mg calcium- 200 unit Tablet 2.5 tab PO DAILY sertraline 100 mg tablet 100 mg PO DAILY Referrals Referrals: Elizabeth Combs MD [Primary Care Provider] -
[2023-04-27] MEDS ORDERED: ACETAMINOPHEN 325 MG TAB PO STA (15:21)
[2023-04-27 15:25] LABS: iSTAT Creatinine 0.9 mg/dl (0.6-1.3); iSTAT Ionized Calcium 0.86 mmol/l (1.12-1.32)
[2023-04-27 15:26] LABS: Hematocrit (blood only) 45.4 % (37.0-47.0); Hemoglobin 15.5 g/dl (12.0-16.0); Mean Corpuscular Hemoglobin 32.2 pg (25.0-34.0); Mean Corpuscular Hgb Conc 34.1 g/dL (32.0-36.0); Mean Corpuscular Volume 94.2 fL (80.0-100.0); Mean Platelet Volume 10.2 fL (9.4-12.4); Platelet Count 141 K/uL (130-400); RDW Standard Deviation 41.7 fL (36.4-46.3); Red Blood Count 4.82 M/uL (4.20-5.40); White Blood Count 3.54 K/ul (4.8-10.8)
[2023-04-27] MEDS ORDERED: OPTIRAY 320 125ml IV ONE (15:29)
[2023-04-27 15:37] LABS: Albumin Level 4.1 gm/dl (3.4-5.0); Bilirubin Direct 0.1 mg/dl (0-0.2); Bilirubin,Total 0.4 mg/dl (0.2-1.0); Calcium 9.3 mg/dl (8.6-10.3); Magnesium 1.9 mg/dl (1.7-2.4); Potassium 3.8 mmol/L (3.5-5.1)
[2023-04-27 15:43] LABS: BUN Creatinine Ratio 18.2 (10-20); Est GFR (African American) 60.6 ml/min; Est GFR (Non-African American) 52.3 ml/min
--- NOTE | 2023-04-27 15:45 | CT Scan Report ---
CT SCAN OF THE ABDOMEN AND PELVIS WITH IV CONTRAST CLINICAL HISTORY: Generalized abdominal pain. Sepsis. COMPARISON STUDY: No priors. TECHNIQUE: Following the IV administration of 119 cc of Optiray 320, CT scan of the abdomen and pelv is is performed from the lung bases to the proximal femora. Images are reviewed in the axial, sagitta l, and coronal planes. IV contrast was administered without complication. A dose lowering technique w as utilized adhering to the principles of ALARA. FINDINGS: Lung bases: The heart is normal in size and without pericardial effusion. The lung bases are clear. T here is a small hiatal hernia. Liver: The contrast-enhanced liver is normal in size, contour, and attenuation. There is mild intrahe patic biliary ductal dilatation. The hepatic veins and portal veins are patent. Gallbladder: Surgically absent noting clips in the gallbladder fossa. Spleen: Normal in size and attenuation. Pancreas: Unremarkable. Adrenal glands: Unremarkable. Kidneys: The contrast enhanced kidneys are normal in size and without hydronephrosis. Urothelial thic kening and enhancement is seen involving both ureters. Urothelial thickening and enhancement is also seen in the renal pelvis bilaterally. This indicates ascending urinary tract infection with bilateral pyelitis/pyelonephritis. Heterogeneous enhancement is seen in the lower pole of the left kidney. The re is mild nonspecific bilateral perinephric stranding. Scattered subcentimeter cortical hypodensitie s likely represent cysts but are too small for definitive characterization. Abdominal vasculature: The abdominal aorta is normal in course and caliber noting mild atheroscleroti c calcification. Bowel: There is mild to moderate colonic fecal retention. No bowel obstruction is seen. There is liqu id stool in the right colon. There are mildly inflamed loops of jejunum in the left midabdomen seen o n axial images #188 and #206. The appendix is well-visualized and normal. Peritoneum: There is no intraperitoneal free air or abdominal ascites. Lymphadenopathy: None. Pelvic viscera: The bladder wall is thickened and hyperemic. The uterus is surgically absent. No adne xal lesion is seen. Skeletal structures: The skeletal structures are osteopenic. Postsurgical and spondylotic change is n oted in the thoracic spine. No lytic or blastic lesions are seen. IMPRESSION: 1. There is evidence of cystitis with bilateral ascending urinary tract infection and pyelitis/pyelon ephritis of the kidneys. Correlate with clinical findings and urinalysis. 2. There are mildly inflamed appearing loops of jejunum in the left mid abdomen. Correlate clinically for evidence of a nonspecific enteritis. 3. Additional findings as above. ACT 112: Negative or not required by law. Electronically signed by: Zev Raya M.D. 04/27/2023 3:43 PM
--- NOTE | 2023-04-27 15:45 | CT Scan Report ---
CT ANGIOGRAPHY OF THE CHEST, PULMONARY EMBOLUS PROTOCOL CLINICAL HISTORY: Sepsis. Hypertension. Evaluate for pulmonary embolus. COMPARISON STUDY: Chest CT August 03, 2016. TECHNIQUE: Following IV administration of 119 mL of Optiray, helical axial images of the chest were o btained utilizing the pulmonary embolus protocol. Maximal intensity projections and sagittal and cor onal reformats were viewed on an independent 3D workstation. IV contrast was administered without co mplication. Automated exposure control was utilized for the study. A dose lowering technique was ut ilized adhering to the principles of ALARA. CT DOSE: 2308.91 mGy.cm FINDINGS: No pulmonary emboli are identified. There is no thoracic aortic dissection. Size of the he art is normal. There is a small hiatal hernia. Mildly enlarged mediastinal lymph nodes are stable to slightly decreased in size since CT of August 03, 2016. Index right paratracheal lymph node on image 173 of 229 measures 1.5 cm in short axis diameter. Central airways are patent. There is no pneumothor ax or pleural effusion. There is no consolidation to suggest pneumonia. No acute fractures are identi fied within the bony thorax. The abdomen and pelvis CT will be reported separately. IMPRESSION: 1. No pulmonary emboli identified. 2. No acute intrathoracic findings. 3. Multiple mildly enlarged mediastinal lymph nodes, stable to slightly decreased in size since CT of August 03, 2016. Therefore, these are considered benign. ACT 112: Negative or not required by law. Electronically signed by: Reymundo Joel M.D. 04/27/2023 3:43 PM
[2023-04-27 15:48] LABS: Troponin I High Sensitivity 5.7 pg/ml (0-14)
[2023-04-27 16:03] LABS: Base Excess ABG -4.2 mEq/L (-9-1.8); HCO3 ABG 21 mmol/L (19-24); Oxygen Saturation ABG 95.5 % (90-95); PCO2 ABG 38 mmHg (35-46); PO2 ABG 69 mmHg (80-95); pH ABG 7.35 (7.35-7.45)
[2023-04-27 16:06] LABS: Allen Test POS (Pos)
[2023-04-27 16:10] LABS: Appearance Urine Turbid (Clear); Bacteria Urine Automated Negative (Negative); Bilirubin Urine Negative (Negative); Blood Urine 2+ (Negative); Color Urine Yellow; Epithelial Cell Urine Auto >30 /lpf (0-5); Glucose Urine UA Negative (Negative); Ketones Urine Negative (Negative); Leukocyte Esterase Urine 3+ (Negative); Nitrite Urine Negative (Negative); Protein Urine 2+ (Negative); Specific Gravity Urine > 1.045 (1.000-1.030); Urobilinogen Urine Negative (Negative); WBC Urine Automated >30 /hpf (0-5)
[2023-04-27 16:11] LABS: Basophils # (auto) 0.01 K/uL (0-0.2); Basophils % (auto) 0.3 %; Immature Granulocytes # (auto) 0.03 K/uL (0.01-0.20); Immature Granulocytes % (auto) 0.8 %; Lymphocytes # (auto) 0.85 K/uL (1.2-3.4); Monocytes # (auto) 0.04 K/uL (0.11-0.59); Monocytes % (auto) 1.1 %; Neutrophils # (auto) 2.61 K/uL (1.40-6.50); Neutrophils % (auto) 73.8 %
[2023-04-27 16:36] LABS: Partial Thromboplastin Ratio 0.8; Partial Thromboplastin Time 22.5 Seconds (21.0-31.0); Prothrombin Time 10.6 Seconds (9.0-12.0)
--- NOTE | 2023-04-27 18:05 | History & Physical Report ---
Date of Service April 27, 2023 Assessment & Plan (1) Severe sepsis: (2) Pyelonephritis: Plan: Admit to [facility] with telemetry Patient presenting after syncopal event. Seen by PCP yesterday for suspected UTI. Started on Bactrim. Preliminary culture growing E. coli, sensitivities pending. Meets sepsis criteria on presentation-temp 38.5, tachycardia, hypotension with BP improving after IVF resuscitation, lactate 2.4. UA suggestive of UTI, CT ABD/pelvis showing evidence of cystitis with bilateral ascending urinary tract infection and pyelitis/pyelonephritis of the kidneys Outpatient urine culture from 04/26 growing E. coli, sensitivities pending S/p Zosyn in the ED, continue with Repeat lactate 4.3 --will give additional 1 L IVF, trend lactate Follow urine and blood cultures (3) HTN (hypertension): Plan: Due to hypotension, hold home antihypertensives, resume as able (4) DM type 2 (diabetes mellitus, type 2): Plan: Hgb A1c 6.4 02/2023 Hold Ozempic and utilize NovoLog per protocol while hospitalized (5) Chronic diastolic CHF (congestive heart failure): Plan: Appears euvolemic, does not take routine diuretics Monitor volume status closely while receiving IVF (6) Hyperlipidemia: Plan: Continue statin DVT PROPHYLAXIS SQ Lovenox Patient seen in collaboration with Dr. Borden. I spent a total of 75 minutes coordinating, documenting, and providing care for this patient excluding time spent in the performance of separately billed services. This included personally reviewing all current laboratories and imaging studies, medication reconciliation, outpatient chart review, and discussion with specialists. History of Present Illness Chief Complaint: Passed out Primary Care Provider: Elizabeth Combs MD 67-year-old female with PMH DM type II, dyslipidemia, HTN, chronic diastolic CHF, MANN, GERD, osteoarthritis, DDD, neuropathy, tobacco use disorder, anxiety, and other problems listed below who presents to the ED after syncopal event today. History is obtained from the patient and review of outpatient PCP records. Patient states that a couple days ago she noted some mild hematuria and pressure with urination. She was seen by PCP yesterday and started on Bactrim for suspected UTI. Patient states she took her first dose this morning. 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 While in the waiting room, patient reports she got chills and was shaking. She started to feel very lightheaded and then subsequently passed out. There was no loss of bowel or bladder function.Patient denies chest pain and shortness of breath. Patient had 1 episode of vomiting in the ED, otherwise denies abdominal pain, diarrhea. Upon arrival, patient's BP 71/52, temp 38.5, tachycardic low 100s, initial lactate 2.4. BP improved with IVF. UA suggestive of UTI. CT ABD/pelvis showing evidence of cystitis with bilateral ascending urinary tract infection and pyelitis/pyelonephritis of the kidneys. Patient given Tylenol, IV Zosyn, IV Zofran. Allergies Allergy/AdvReac Type Severity Reaction Status Date / Time No Known Allergies Allergy Mild Unverified 04/27/23 15:26 Home Medications Medication Instructions Recorded Confirmed Type atenolol 50 mg tablet 50 mg PO QAM 06/30/20 04/27/23 History atorvastatin 40 mg tablet 40 mg PO QAM 06/30/20 04/27/23 History cholecalciferol (vitamin D3) 50 50 mcg PO QAM 06/30/20 04/27/23 History mcg (2,000 unit) capsule (Vitamin D3) famotidine 20 mg tablet 20 mg PO AMHS 06/30/20 04/27/23 History gabapentin 300 mg capsule 300 mg PO TID 06/30/20 04/27/23 History multivitamin 1 tab PO QAM 06/30/20 04/27/23 History trazodone 50 mg tablet 50 mg PO HS 06/30/20 04/27/23 History calcium carb-vit D3-minerals 600 2.5 tab PO DAILY 04/27/23 04/27/23 History mg calcium-200 unit tablet (Calcium 600 + Minerals) ferrous sulfate 325 mg (65 mg 325 mg PO BID 04/27/23 04/27/23 History iron) tablet lisinopril 20 mg tablet 20 mg PO QAM 04/27/23 04/27/23 History semaglutide 0.25 mg or 0.5 mg (2 1 mg subcut WK 04/27/23 04/27/23 History mg/3 mL) subcutaneous pen injector (Ozempic) sertraline 100 mg tablet 100 mg PO DAILY 04/27/23 04/27/23 History sulfamethoxazole 800 1 tab PO BID 04/27/23 04/27/23 History mg-trimethoprim 160 mg tablet varenicline 0.5 mg (11)-1 mg (42) 1 ea PO UD 04/27/23 04/27/23 History tablets in a dose pack Past Med/Surg History Medical History (Updated 04/28/23 @ 02:06 by ETIENNE Hopson) Chronic diastolic CHF (congestive heart failure) DM type 2 (diabetes mellitus, type 2) GERD (gastroesophageal reflux disease) HTN (hypertension) Hyperlipidemia MANN (nonalcoholic steatohepatitis) Surgical History History of shoulder surgery History of spinal fusion Postop course complicated by infection and sepsis S/P cholecystectomy S/P hysterectomy S/P rotator cuff repair Social History Smoking Status: Current every day smoker Cigarettes Per Day: half pack; Second Hand Exposure: Yes; Do You Dip or Chew Tobacco: No; Tobacco Cessation Education Requested by Patient: No Hx Alcohol Use: Yes Alcohol type: beer Hx Substance Use: No Preferred Language: [place] Communication Ability: Effective Parking Officer Required: No Beliefs That Will Affect Care: None Current Living Situation: Alone Other Information That Helps Us Care for You: No Feels Safe at Home: No Safety Concerns: Feels Safe At This Time Assistive Devices: Glasses Review of Systems Review of Systems: ROS per HPI, all other systems reviewed and negative Physical Exam Constitutional: WD/WN, vitals as above + obese; no acute distress Eyes: PERRL, conjunctivae normal, anicteric sclerae ENMT: external ear and nose normal, oropharynx normal Respiratory: normal respiratory effort, lungs clear to auscultation Cardiovascular: Rate/Rhythm: regular rate and regular rhythm Vessels: normal peripheral pulses Extremities: no edema Gastrointestinal (Abdomen): normal bowel sounds, soft, nontender, no hepatosplenomegaly Musculoskeletal: no cyanosis or clubbing, extremities motor strength 5/5 Skin: no rashes, warm and dry Neurologic: PERRL, EOMI, accommodation nl, no face palsy, no dysarthria Psychiatric: A+Ox3, euthymic affect Results & Data Results & Data Vital Signs (Past 12 Hours) Vital Signs Temp Pulse Pulse Resp BP BP Pulse Ox 04/27/23 17:30 98 H 31 H 99 04/27/23 17:30 113/73 04/27/23 17:20 98 H 37 H 97 04/27/23 17:15 100 H 33 H 97 04/27/23 17:15 128/72 04/27/23 17:10 100 H 39 H 97 04/27/23 17:00 101 H 25 H 96 04/27/23 17:00 136/73 04/27/23 16:50 102 H 23 96 04/27/23 16:45 103 H 34 H 98 04/27/23 16:45 117/70 04/27/23 16:40 105 H 44 H 96 04/27/23 16:30 105 H 19 98 04/27/23 16:30 103/67 04/27/23 16:25 104 H 39 H 96 04/27/23 16:15 106/63 04/27/23 16:15 109 H 27 H 96 04/27/23 16:10 107 H 27 H 96 04/27/23 16:10 121/75 04/27/23 16:05 110 H 20 04/27/23 16:05 131/73 04/27/23 16:00 117 H 25 H 04/27/23 16:00 146/88 H 04/27/23 15:55 120/84 04/27/23 15:55 111 H 35 H 04/27/23 15:50 113 H 23 04/27/23 15:50 153/71 H 04/27/23 15:45 112 H 31 H 04/27/23 15:45 140/74 04/27/23 15:40 108 H 34 H 04/27/23 15:40 146/72 H 04/27/23 15:37 145/119 H 04/27/23 15:37 107 H 23 04/27/23 15:34 108 H 30 H 04/27/23 15:13 135/112 H 04/27/23 15:13 95 H 37 H 04/27/23 15:12 99 H 27 H 04/27/23 17:33 36.9 C 100 H 33 H 94/68 L 93 04/27/23 16:33 103 H 24 103/67 96 04/27/23 16:18 106 H 25 H 106/63 96 04/27/23 16:07 109 H 20 131/73 95 04/27/23 16:07 04/27/23 16:00 111 H 04/27/23 15:38 38.5 C H 105 H 20 145/119 H 90 04/27/23 15:16 91 04/27/23 15:16 99 H 20 135/112 H 91 04/27/23 14:34 96 H 16 71/52 L O2 Del Method O2 Flow Rate 04/27/23 17:30 Nasal Cannula 2 04/27/23 17:30 Nasal Cannula 2 04/27/23 17:20 Nasal Cannula 2 04/27/23 17:15 Nasal Cannula 2 04/27/23 17:15 04/27/23 17:10 Nasal Cannula 2 04/27/23 17:00 Nasal Cannula 2 04/27/23 17:00 04/27/23 16:50 Nasal Cannula 2 04/27/23 16:45 Nasal Cannula 2 04/27/23 16:45 04/27/23 16:40 Nasal Cannula 2 04/27/23 16:30 04/27/23 16:30 04/27/23 16:25 Nasal Cannula 2 04/27/23 16:15 04/27/23 16:15 Nasal Cannula 2 04/27/23 16:10 Nasal Cannula 2 04/27/23 16:10 04/27/23 16:05 04/27/23 16:05 04/27/23 16:00 04/27/23 16:00 04/27/23 15:55 04/27/23 15:55 04/27/23 15:50 04/27/23 15:50 04/27/23 15:45 04/27/23 15:45 04/27/23 15:40 04/27/23 15:40 04/27/23 15:37 04/27/23 15:37 04/27/23 15:34 04/27/23 15:13 04/27/23 15:13 04/27/23 15:12 04/27/23 17:33 Room Air 04/27/23 16:33 Nasal Cannula 2 04/27/23 16:18 Nasal Cannula 2 04/27/23 16:07 Nasal Cannula 2 04/27/23 16:07 Nasal Cannula 2 04/27/23 16:00 04/27/23 15:38 Nasal Cannula 2 04/27/23 15:16 Nasal Cannula 2 04/27/23 15:16 Nasal Cannula 2 04/27/23 14:34 Laboratory Results Short CBC 04/27/23 Range/Units 15:13 WBC 3.54 L (4.8-10.8) K/ul Hgb 15.5 (12.0-16.0) g/dl Hct 45.4 (37.0-47.0) % Plt Count 141 (130-400) K/uL BMP 04/27/23 15:13 Sodium 138 Potassium 3.8 Chloride 106 Carbon Dioxide 19 L BUN 20 Creatinine 1.10 Glucose 194 H Calcium 9.3 Liver Function 04/27/23 Range/Units 15:13 Total Bilirubin 0.4 (0.2-1.0) mg/dl Direct Bilirubin 0.1 (0-0.2) mg/dl AST 20 (13-39) U/L ALT 23 (7-52) U/L Alkaline Phosphatase 63 (34-104) U/L Albumin 4.1 (3.4-5.0) gm/dl Urine 04/27/23 Range/Units 16:00 Urine Color Yellow Urine Appearance Turbid A (Clear) Urine pH 6.0 (4.5-7.5) Ur Specific [place] > 1.045 H (1.000-1.030) Urine Protein 2+ H (Negative) Urine Glucose (UA) Negative (Negative) Diagnostic Findings Abdomen/Pelvis CT 04/27/23 14:38 CT SCAN OF THE ABDOMEN AND PELVIS WITH IV CONTRAST CLINICAL HISTORY: Generalized abdominal pain. Sepsis. COMPARISON STUDY: No priors. TECHNIQUE: Following the IV administration of 119 cc of Optiray 320, CT scan of the abdomen and pelvis is performed from the lung bases to the proximal femora. Images are reviewed in the axial, sagittal, and coronal planes. IV contrast was administered without complication. A dose lowering technique was utilized adhering to the principles of ALARA. FINDINGS: Lung bases: The heart is normal in size and without pericardial effusion. The lung bases are clear. There is a small hiatal hernia. Liver: The contrast-enhanced liver is normal in size, contour, and attenuation. There is mild intrahepatic biliary ductal dilatation. The hepatic veins and portal veins are patent. Gallbladder: Surgically absent noting clips in the gallbladder fossa. Spleen: Normal in size and attenuation. Pancreas: Unremarkable. Adrenal glands: Unremarkable. Kidneys: The contrast enhanced kidneys are normal in size and without hydronephrosis. Urothelial thickening and enhancement is seen involving both ureters. Urothelial thickening and enhancement is also seen in the renal pelvis bilaterally. This indicates ascending urinary tract infection with bilateral pyelitis/pyelonephritis. Heterogeneous enhancement is seen in the lower pole of the left kidney. There is mild nonspecific bilateral perinephric stranding. Scattered subcentimeter cortical hypodensities likely represent cysts but are too small for definitive characterization. Abdominal vasculature: The abdominal aorta is normal in course and caliber noting mild atherosclerotic calcification. Bowel: There is mild to moderate colonic fecal retention. No bowel obstruction is seen. There is liquid stool in the right colon. There are mildly inflamed loops of jejunum in the left midabdomen seen on axial images #188 and #206. The appendix is well-visualized and normal. Peritoneum: There is no intraperitoneal free air or abdominal ascites. Lymphadenopathy: None. Pelvic viscera: The bladder wall is thickened and hyperemic. The uterus is surgically absent. No adnexal lesion is seen. Skeletal structures: The skeletal structures are osteopenic. Postsurgical and spondylotic change is noted in the thoracic spine. No lytic or blastic lesions are seen. IMPRESSION: 1. There is evidence of cystitis with bilateral ascending urinary tract infection and pyelitis/pyelonephritis of the kidneys. Correlate with clinical findings and urinalysis. 2. There are mildly inflamed appearing loops of jejunum in the left mid abdomen. Correlate clinically for evidence of a nonspecific enteritis. 3. Additional findings as above. ACT 112: Negative or not required by law. Electronically signed by: Zev Raya M.D. 04/27/2023 3:43 PM Chest CTA 04/27/23 14:38 CT ANGIOGRAPHY OF THE CHEST, PULMONARY EMBOLUS PROTOCOL CLINICAL HISTORY: Sepsis. Hypertension. Evaluate for pulmonary embolus. COMPARISON STUDY: Chest CT August 03, 2016. TECHNIQUE: Following IV administration of 119 mL of Optiray, helical axial images of the chest were obtained utilizing the pulmonary embolus protocol. Maximal intensity projections and sagittal and coronal reformats were viewed on an independent 3D workstation. IV contrast was administered without complication. Automated exposure control was utilized for the study. A dose lowering technique was utilized adhering to the principles of ALARA. CT DOSE: 2308.91 mGy.cm FINDINGS: No pulmonary emboli are identified. There is no thoracic aortic dissection. Size of the heart is normal. There is a small hiatal hernia. Mildly enlarged mediastinal lymph nodes are stable to slightly decreased in size since CT of August 03, 2016. Index right paratracheal lymph node on image 173 of 229 measures 1.5 cm in short axis diameter. Central airways are patent. There is no pneumothorax or pleural effusion. There is no consolidation to suggest pneumonia. No acute fractures are identified within the bony thorax. The abdomen and pelvis CT will be reported separately. IMPRESSION: 1. No pulmonary emboli identified. 2. No acute intrathoracic findings. 3. Multiple mildly enlarged mediastinal lymph nodes, stable to slightly decreased in size since CT of August 03, 2016. Therefore, these are considered benign. ACT 112: Negative or not required by law. Electronically signed by: Reymundo Joel M.D. 04/27/2023 3:43 PM Supervising Physician Co-Signing Physician Notes Pt seen and examined by myself, Sonya Borden MD on the day of service. Care was coordinated with ETIENNE Echevarria. Please refer to her note for additional information. 67yoF with complicated UTI who presented after a syncopal episode, currently septic. States that she took one dose of her 3 day course of Bactrim prescribed by her pcp before this happened. Repeat UA suggestive of infection with CT concerning for pyelonephritis and enteritis (pt states she has alternating episodes of diarrhea and constipation, does not use laxatives). Empiric zosyn, follow urine and blood cultures obtained. Close telemetry monitoring given sepsis. Otherwise as above. (3) HTN (hypertension) Hypertension type: unspecified Qualified Code(s): I10 - Essential (primary) hypertension
[2023-04-27] MEDS ORDERED: STAT IV Infusion **Titration per Protocol STA (19:45)
--- NOTE | 2023-04-27 20:29 | Communication Note ---
Date of Service: April 27, 2023 Received call from nursing at 1930 regarding persistent hypotension despite IVF bolus. Patient has received 4L IVF and BP 86/46. Patient re-evaluated at the bedside. She remains awake, alert, and oriented. Does not appear to be in acute distress. Denies lightheadedness or dizziness. Sanchez catheter has 400cc clear yellow urine. Case discussed with manager risk management ETIENNE Estes. Will initiate Levophed for hypotension secondary to septic shock from pyelonephritis and place patient in the ICU. A total of 30 minutes of critical care time was spent re-evaluating and stabilizing the patient, discussion with nursing and ICU provider. ETIENNE Echevarria
[2023-04-27] MEDS ORDERED: DEXTROSE 50% 50 ML SYRINGE IV PRN (20:57)
[2023-04-27] MEDS ORDERED: CARBOHYDRATES FOR HYPOGLYCEMIA PO PRN (20:57)
[2023-04-27] MEDS ORDERED: GLUCOSE 10 TAB/TUBE PO PRN (20:57)
[2023-04-27] MEDS ORDERED: GLUCOSE 40% GEL 15 GM TUBE PO PRN (20:57)
[2023-04-27] MEDS ORDERED: GLUCAGON FOR INJ 1 MG VIAL SQ PRN (20:57)
[2023-04-27] MEDS ORDERED: ONDANSETRON INJ 2 MG/ML 2 ML VIAL IV PRN (20:57)
[2023-04-27] MEDS ORDERED: SODIUM CHLORIDE 0.9% 1000ML 1,000 ML IV SCH (20:57)
[2023-04-27] MEDS: NOREPINEPHRINE/D5W 4 MG/250 ML PLCT IV SCH (21:00)
[2023-04-27] MEDS ORDERED: VANCOMYCIN CONSULT ACTIVE PRN (21:09)
[2023-04-27] MEDS: PIPERACILLIN/TAZOBACTAM 4.5 GM in DEXTROSE 5% 100 ML IV SCH (21:23)
[2023-04-27] MEDS: ENOXAPARIN INJ 40 MG/0.4 ML SYR SQ SCH (21:23)
[2023-04-27] MEDS: GABAPENTIN 300 MG CAP PO SCH (21:25)
[2023-04-27] MEDS: FERROUS SULFATE 325 MG TAB PO SCH (21:25)
[2023-04-27] MEDS: FAMOTIDINE 20 MG TAB PO SCH (21:25)
[2023-04-27] MEDS: traZODone HCL 50 MG TAB PO SCH (21:27)
[2023-04-27] MEDS: ICU Protocol for HYPERglycemia SCH (21:42)
[2023-04-27] MEDS: INSULIN ASPART PER UNIT CHARGE SC SCH (21:46)
[2023-04-27] MEDS: PLASMA-LYTE A 1,000 ML IV SCH (21:46)
[2023-04-27] MEDS ORDERED: VANCOMYCIN HCL 1,750 MG in SODIUM CHLORIDE 0.9% 500 ML IV ONE (22:00)
[2023-04-27 22:26] LABS: Calcium 7.7 mg/dl (8.6-10.3); Creatinine Clr Calc Pharmacy 42.2 ml/min; Est GFR (African American) 50.9 ml/min; Est GFR (Non-African American) 43.9 ml/min
--- NOTE | 2023-04-28 02:02 | Critical Care Consultation ---
Date of Consultation April 27, 2023 Assessment & Plan (1) Septic shock: Reason Critically Ill: 67-year-old female presents to the ICU with septic shock secondary to pyelonephritis/cystitis, currently requiring vasopressor support with Levophed drip. Neuro - [facility] ICU: Negative Anxiety disordercontinue Seroquel Neuropathycontinue gabapentin Cardiac - Shock Suspect this is most likely septic in etiology as patient is currently being treated for pyelonephritis. - Patient does have history of diastolic heart failure but no echo on EMR for reference. Will obtain TTE - Troponin negative, no ST elevation on EKG. No chest pain on exam -Random cortisol pending -Hold antihypertensives - Received 4 L crystalloid bolus and remained hypotensive and now requiring low-dose Levophed drip. Titrate for MAP greater than 65 and wean as tolerated. HLDcontinue statin Respiratory - Currently maintaining oxygen saturation on 2 L nasal cannula. No previous pulmonary disease but patient does report history of tobacco abuse/cigarette smoking - CTA chest negative for PE. No active disease seen in chest - New increased oxygen demand likely secondary to diastolic heart failure and aggressive volume resuscitation due to sepsis. -Hold on diuresis for now given hypotension - Continuous monitoring on pulse ox. Wean oxygen as tolerated GI - GERD Famotidine RENAL/LYTES - AKIcreatinine elevated at 1.2 with previous baseline 0.9. Likely secondary to ATN from hypotension. Patient is also undergoing treatment for pyelonephritis. Patient also received contrast with CTA chest - Levophed drip to maintain maps greater than 65 - Continue with IV fluid resuscitation. Plasma-Lyte at 125 mL/h -Avoid nephrotoxins and renally adjust medication -Monitor routine BMPs and replete electrolytes as indicated - Foleystrict I's and O's ENDO - DM type IIhemoglobin A1c 6.4. Holding Ozempic in favor of sliding scale -ICU hyperglycemic protocol HEME - H&H stable, monitor routine CBC ID - Sepsis Likely urinary source as patient has ascending cystitis with pyelonephritis per CT results. - Fever 38.8, lactic acid 2.2. No leukocytosis - CT findings as above - Urine culture and blood cultures pending - Zosyn and vancomycin LINES/IV ACCESS - Peripheral IVscurrently receiving low-dose vasopressor for through peripheral IV. We will hold off on central line for the time being but may require if vasopressors requirements becomes greater. DVT PROPHYLAXIS - SCDs, Lovenox I have personally spent 45 minutes of critical care time in the direct management of this patient. This is a life/limb threatening event. This includes time spent evaluating patient, direct bedside care, chart review, placing orders, interpretation of diagnostic studies, discussion with consultants, patient, and family members, as well as other required patient management activities. This time is exclusive of all separately billable procedures, and teaching time and separate from and in addition to any other critical care service time. Thank you for allowing us to participate in the care of this patient. Please refer to my attending physician's documentation for any further recommendations. (2) Pyelonephritis: (3) Chronic diastolic CHF (congestive heart failure): (4) DM type 2 (diabetes mellitus, type 2): (5) Hyperlipidemia: (6) HTN (hypertension): (7) GERD (gastroesophageal reflux disease): History of Present Illness Attending Physician: Sonya Borden MD History of Present Illness Patient is 67-year-old female with past medical history of DM type II, HLD, HTN, diastolic heart failure, GERD, neuropathy, anxiety disorder who presented to her Primary care provider yesterday and was treated for suspected UTI and prescribed Bactrim. Today she was at work and experienced episode of syncope and reported to the ED. On arrival to the ED she was found to have urinalysis concerning for UTI, temperature 38.5, lactate of 2.4, and was hypotensive with blood pressure of 71/52. Patient received Zosyn and 4 L crystalloid bolus in the ED. She underwent CT abdomen and pelvis which show evidence of cystitis with bilateral ascending urinary tract infection and pyelitis/pyelonephritis of the kidneys. She also underwent CTA chest which was negative. Blood pressure initially improved following fluid resuscitation, however she became hypotensive shortly after and was started on Levophed drip. She is now being transferred to the ICU for further management at this time. On arrival to the ICU the patient is alert and oriented and without acute distr ess. She does report the single episode of dizziness and syncope from earlier, but has had no other occurrences. She denies headache, fevers at home, cough or congestion, shortness of breath, chest pain, abdominal pain, back pain, Diarrhea, swelling in hands and feet, changes in gait. Patient reports that she was having burning urine and urine was dark and concentrated for the past few days. She reports some nausea and vomiting in the emergency department. Allergies Allergy/AdvReac Type Severity Reaction Status Date / Time No Known Allergies Allergy Mild Unverified 04/27/23 15:26 Home Medications Medication Instructions Recorded Confirmed Type atenolol 50 mg tablet 50 mg PO QAM 06/30/20 04/27/23 History atorvastatin 40 mg tablet 40 mg PO QAM 06/30/20 04/27/23 History cholecalciferol (vitamin D3) 50 50 mcg PO QAM 06/30/20 04/27/23 History mcg (2,000 unit) capsule (Vitamin D3) famotidine 20 mg tablet 20 mg PO AMHS 06/30/20 04/27/23 History gabapentin 300 mg capsule 300 mg PO TID 06/30/20 04/27/23 History multivitamin 1 tab PO QAM 06/30/20 04/27/23 History trazodone 50 mg tablet 50 mg PO HS 06/30/20 04/27/23 History calcium carb-vit D3-minerals 600 2.5 tab PO DAILY 04/27/23 04/27/23 History mg calcium-200 unit tablet (Calcium 600 + Minerals) ferrous sulfate 325 mg (65 mg 325 mg PO BID 04/27/23 04/27/23 History iron) tablet lisinopril 20 mg tablet 20 mg PO QAM 04/27/23 04/27/23 History semaglutide 0.25 mg or 0.5 mg (2 1 mg subcut WK 04/27/23 04/27/23 History mg/3 mL) subcutaneous pen injector (Ozempic) sertraline 100 mg tablet 100 mg PO DAILY 04/27/23 04/27/23 History sulfamethoxazole 800 1 tab PO BID 04/27/23 04/27/23 History mg-trimethoprim 160 mg tablet varenicline 0.5 mg (11)-1 mg (42) 1 ea PO UD 04/27/23 04/27/23 History tablets in a dose pack Patient History Medical History (Updated 04/28/23 @ 02:06 by ETIENNE Hopson) Chronic diastolic CHF (congestive heart failure) DM type 2 (diabetes mellitus, type 2) GERD (gastroesophageal reflux disease) HTN (hypertension) Hyperlipidemia MANN (nonalcoholic steatohepatitis) Surgical History History of shoulder surgery History of spinal fusion Postop course complicated by infection and sepsis S/P cholecystectomy S/P hysterectomy S/P rotator cuff repair Social History Smoking Status: Current every day smoker Cigarettes Per Day: half pack; Second Hand Exposure: Yes; Do You Dip or Chew Tobacco: No; Tobacco Cessation Education Requested by Patient: No Hx Alcohol Use: Yes Alcohol type: beer Hx Substance Use: No Preferred Language: Togolese Communication Ability: Effective Chief Nuclear Medicine Technologist Required: No Beliefs That Will Affect Care: None Current Living Situation: Alone Other Information That Helps Us Care for You: No Feels Safe at Home: No Safety Concerns: Feels Safe At This Time Assistive Devices: Glasses Review of Systems Review of Systems: All systems reviewed & are unremarkable except as noted in HPI & below Physical Exam Constitutional: cooperative and comfortable; no acute distress Eyes: PERRL, conjunctivae normal, anicteric sclerae ENMT: external ear and nose normal, oropharynx normal Neck: trachea midline, no thyromegaly Respiratory: normal respiratory effort, lungs clear to auscultation Cardiovascular: RRR, no murmur, no edema Heart Sounds: normal S1 and normal S2; no murmur Extremities: no edema Gastrointestinal (Abdomen): normal bowel sounds, soft, nontender, no hepatosplenomegaly Musculoskeletal: no cyanosis or clubbing, extremities motor strength 5/5 Skin: no rashes, warm and dry Neurologic: PERRL, EOMI, accommodation nl, no face palsy, no dysarthria Psychiatric: A+Ox3, euthymic affect Results & Data Results & Data Vital Signs (Past 12 Hours) Vital Signs Temp Pulse Pulse Resp BP BP Pulse Ox 04/27/23 20:00 36.5 C 94 H 30 H 94/60 L 98 04/27/23 19:50 95 H 35 H 100 04/27/23 19:45 95 H 31 H 88/58 L 99 04/27/23 19:40 93 H 30 H 98 04/27/23 19:30 92 H 34 H 98 04/27/23 19:30 85/46 L 04/27/23 19:26 92 H 33 H 97 04/27/23 19:26 76/51 L 04/27/23 19:20 92 H 32 H 97 04/27/23 19:15 91 H 34 H 100 04/27/23 19:15 84/57 L 04/27/23 19:10 91 H 29 H 100 04/27/23 19:00 91 H 35 H 100 04/27/23 19:00 87/55 L 04/27/23 18:50 91 H 35 H 99 04/27/23 18:49 84/57 L 04/27/23 18:49 92 H 33 H 100 04/27/23 18:45 90 40 H 100 04/27/23 18:45 82/54 L 04/27/23 18:40 86 31 H 98 04/27/23 18:39 86 38 H 98 04/27/23 18:39 80/46 L 04/27/23 18:33 90 38 H 90 04/27/23 18:33 74/45 L 04/27/23 18:30 94 H 39 H 91 04/27/23 18:30 78/52 L 04/27/23 18:20 95 H 30 H 91 04/27/23 18:20 79/57 L 04/27/23 18:15 77/60 L 04/27/23 18:15 94 H 28 H 92 04/27/23 18:10 97 H 32 H 92 04/27/23 18:00 96 H 34 H 89 L 04/27/23 18:00 92/47 L 04/27/23 17:50 102 H 27 H 92 04/27/23 17:45 98 H 27 H 97 04/27/23 17:45 94/68 L 04/27/23 17:40 97 H 24 99 04/27/23 18:00 89 L 04/27/23 17:30 98 H 31 H 99 04/27/23 17:30 113/73 04/27/23 17:20 98 H 37 H 97 04/27/23 17:15 100 H 33 H 97 04/27/23 17:15 128/72 04/27/23 17:10 100 H 39 H 97 04/27/23 17:00 101 H 25 H 96 04/27/23 17:00 136/73 04/27/23 16:50 102 H 23 96 04/27/23 16:45 103 H 34 H 98 04/27/23 16:45 117/70 04/27/23 16:40 105 H 44 H 96 04/27/23 16:30 105 H 19 98 04/27/23 16:30 103/67 04/27/23 16:25 104 H 39 H 96 04/27/23 16:15 106/63 04/27/23 16:15 109 H 27 H 96 04/27/23 16:10 107 H 27 H 96 04/27/23 16:10 121/75 04/27/23 16:05 110 H 20 04/27/23 16:05 131/73 04/27/23 16:00 117 H 25 H 04/27/23 16:00 146/88 H 04/27/23 15:55 120/84 04/27/23 15:55 111 H 35 H 04/27/23 15:50 113 H 23 04/27/23 15:50 153/71 H 04/27/23 15:45 112 H 31 H 04/27/23 15:45 140/74 04/27/23 15:40 108 H 34 H 04/27/23 15:40 146/72 H 04/27/23 15:37 145/119 H 04/27/23 15:37 107 H 23 04/27/23 15:34 108 H 30 H 04/27/23 15:13 135/112 H 04/27/23 15:13 95 H 37 H 04/27/23 15:12 99 H 27 H 04/27/23 17:33 36.9 C 100 H 33 H 94/68 L 93 04/27/23 16:33 103 H 24 103/67 96 04/27/23 16:18 106 H 25 H 106/63 96 04/27/23 16:07 109 H 20 131/73 95 04/27/23 16:07 04/27/23 16:00 111 H 04/27/23 15:38 38.5 C H 105 H 20 145/119 H 90 04/27/23 15:16 91 04/27/23 15:16 99 H 20 135/112 H 91 04/27/23 14:34 96 H 16 71/52 L O2 Del Method O2 Flow Rate 04/27/23 20:00 Nasal Cannula 2 04/27/23 19:50 Nasal Cannula 2 04/27/23 19:45 Nasal Cannula 2 04/27/23 19:40 Nasal Cannula 2 04/27/23 19:30 04/27/23 19:30 04/27/23 19:26 04/27/23 19:26 04/27/23 19:20 04/27/23 19:15 Nasal Cannula 2 04/27/23 19:15 04/27/23 19:10 Nasal Cannula 2 04/27/23 19:00 Nasal Cannula 2 04/27/23 19:00 04/27/23 18:50 Nasal Cannula 2 04/27/23 18:49 04/27/23 18:49 Nasal Cannula 2 04/27/23 18:45 Nasal Cannula 2 04/27/23 18:45 04/27/23 18:40 Nasal Cannula 2 04/27/23 18:39 Nasal Cannula 2 04/27/23 18:39 04/27/23 18:33 Nasal Cannula 2 04/27/23 18:33 04/27/23 18:30 Nasal Cannula 2 04/27/23 18:30 04/27/23 18:20 Nasal Cannula 2 04/27/23 18:20 04/27/23 18:15 04/27/23 18:15 Nasal Cannula 2 04/27/23 18:10 Nasal Cannula 2 04/27/23 18:00 Room Air 04/27/23 18:00 04/27/23 17:50 04/27/23 17:45 04/27/23 17:45 04/27/23 17:40 04/27/23 18:00 Room Air 04/27/23 17:30 Nasal Cannula 2 04/27/23 17:30 Nasal Cannula 2 04/27/23 17:20 Nasal Cannula 2 04/27/23 17:15 Nasal Cannula 2 04/27/23 17:15 04/27/23 17:10 Nasal Cannula 2 04/27/23 17:00 Nasal Cannula 2 04/27/23 17:00 04/27/23 16:50 Nasal Cannula 2 04/27/23 16:45 Nasal Cannula 2 04/27/23 16:45 04/27/23 16:40 Nasal Cannula 2 04/27/23 16:30 04/27/23 16:30 04/27/23 16:25 Nasal Cannula 2 04/27/23 16:15 04/27/23 16:15 Nasal Cannula 2 04/27/23 16:10 Nasal Cannula 2 04/27/23 16:10 04/27/23 16:05 04/27/23 16:05 04/27/23 16:00 04/27/23 16:00 04/27/23 15:55 04/27/23 15:55 04/27/23 15:50 04/27/23 15:50 04/27/23 15:45 04/27/23 15:45 04/27/23 15:40 04/27/23 15:40 04/27/23 15:37 04/27/23 15:37 04/27/23 15:34 04/27/23 15:13 04/27/23 15:13 04/27/23 15:12 04/27/23 17:33 Room Air 04/27/23 16:33 Nasal Cannula 2 04/27/23 16:18 Nasal Cannula 2 04/27/23 16:07 Nasal Cannula 2 04/27/23 16:07 Nasal Cannula 2 04/27/23 16:00 04/27/23 15:38 Nasal Cannula 2 04/27/23 15:16 Nasal Cannula 2 04/27/23 15:16 Nasal Cannula 2 04/27/23 14:[address] ANGIOGRAPHY OF THE CHEST, PULMONARY EMBOLUS PROTOCOL CLINICAL HISTORY: Sepsis. Hypertension. Evaluate for pulmonary embolus. COMPARISON STUDY: Chest CT August 03, 2016. TECHNIQUE: Following IV administration of 119 mL of Optiray, helical axial images of the chest were obtained utilizing the pulmonary embolus protocol. Maximal intensity projections and sagittal and coronal reformats were viewed on an independent 3D workstation. IV contrast was administered without complication. Automated exposure control was utilized for the study. A dose lowering technique was utilized adhering to the principles of ALARA. CT DOSE: 2308.91 mGy.cm FINDINGS: No pulmonary emboli are identified. There is no thoracic aortic dissection. Size of the heart is normal. There is a small hiatal hernia. Mildly enlarged mediastinal lymph nodes are stable to slightly decreased in size since CT of August 03, 2016. Index right paratracheal lymph node on image 173 of 229 measures 1.5 cm in short axis diameter. Central airways are patent. There is no pneumothorax or pleural effusion. There is no consolidation to suggest pneumonia. No acute fractures are identified within the bony thorax. The abdomen and pelvis CT will be reported separately. IMPRESSION: 1. No pulmonary emboli identified. 2. No acute intrathoracic findings. 3. Multiple mildly enlarged mediastinal lymph nodes, stable to slightly decreased in size since CT of August 03, 2016. Therefore, these are considered benign. CT SCAN OF THE ABDOMEN AND PELVIS WITH IV CONTRAST CLINICAL HISTORY: Generalized abdominal pain. Sepsis. COMPARISON STUDY: No priors. TECHNIQUE: Following the IV administration of 119 cc of Optiray 320, CT scan of the abdomen and pelvis is performed from the lung bases to the proximal femora. Images are reviewed in the axial, sagittal, and coronal planes. IV contrast was administered without complication. A dose lowering technique was utilized adhering to the principles of ALARA. FINDINGS: Lung bases: The heart is normal in size and without pericardial effusion. The lung bases are clear. There is a small hiatal hernia. Liver: The contrast-enhanced liver is normal in size, contour, and attenuation. There is mild intrahepatic biliary ductal dilatation. The hepatic veins and portal veins are patent. Gallbladder: Surgically absent noting clips in the gallbladder fossa. Spleen: Normal in size and attenuation. Pancreas: Unremarkable. Adrenal glands: Unremarkable. Kidneys: The contrast enhanced kidneys are normal in size and without hydronephrosis. Urothelial thickening and enhancement is seen involving both ureters. Urothelial thickening and enhancement is also seen in the renal pelvis bilaterally. This indicates ascending urinary tract infection with bilateral pyelitis/pyelonephritis. Heterogeneous enhancement is seen in the lower pole of the left kidney. There is mild nonspecific bilateral perinephric stranding. Scattered subcentimeter cortical hypodensities likely represent cysts but are too small for definitive characterization. Abdominal vasculature: The abdominal aorta is normal in course and caliber noting mild atherosclerotic calcification. Bowel: There is mild to moderate colonic fecal retention. No bowel obstruction is seen. There is liquid stool in the right colon. There are mildly inflamed loops of jejunum in the left midabdomen seen on axial images #188 and #206. The appendix is well-visualized and normal. Peritoneum: There is no intraperitoneal free air or abdominal ascites. Lymphadenopathy: None. Pelvic viscera: The bladder wall is thickened and hyperemic. The uterus is surgically absent. No adnexal lesion is seen. Skeletal structures: The skeletal structures are osteopenic. Postsurgical and spondylotic change is noted in the thoracic spine. No lytic or blastic lesions are seen. IMPRESSION: 1. There is evidence of cystitis with bilateral ascending urinary tract infection and pyelitis/pyelonephritis of the kidneys. Correlate with clinical findings and urinalysis. 2. There are mildly inflamed appearing loops of jejunum in the left mid abdomen. Correlate clinically for evidence of a nonspecific enteritis. 3. Additional findings as above. ACT 112: Negative or not required by law. Electronically signed by: Zev Raya M.D. 04/27/2023 3:43 PM Coding Level of Care Code 58796 CRITICAL CARE 1ST 30-74M Diagnoses Septic shock A41.9; R65.21 Pyelonephritis N12 Chronic diastolic CHF (congestive heart failure) I50.32 DM type 2 (diabetes mellitus, type 2) E11.9 Hyperlipidemia E78.5 HTN (hypertension) I10 Hypertension type: unspecified GERD (gastroesophageal reflux disease) K21.9 (6) HTN (hypertension) Hypertension type: unspecified Qualified Code(s): I10 - Essential (primary) hypertension
[2023-04-28 06:27] LABS: BUN Creatinine Ratio 15.9 (10-20); Creatinine Clr Calc Pharmacy 39.2 ml/min; Est GFR (African American) 46.1 ml/min; Est GFR (Non-African American) 39.7 ml/min; Magnesium 1.4 mg/dl (1.7-2.4); Phosphorus 3.4 mg/dl (2.5-4.9); Potassium 4.1 mmol/L (3.5-5.1)
[2023-04-28] MEDS: PIPERACILLIN/TAZOBACTAM 4.5 GM in DEXTROSE 5% 100 ML IV SCH (06:27)
[2023-04-28] MEDS: PLASMA-LYTE A 1,000 ML IV SCH ×3 (06:27→22:12)
[2023-04-28] MEDS ORDERED: STAT IV STA (06:34)
[2023-04-28] MEDS ORDERED: HYDROCORTISONE SOD 100 MG in SYRINGE 0 ML IV ONE (06:45)
[2023-04-28] MEDS: MAGNESIUM SULFATE / D5W 1 GM/100 ML BAG IV SCH ×3 (06:56→10:13)
[2023-04-28] MEDS ORDERED: CALCIUM GLUCONATE 10% 1,000 MG in DEXTROSE 5% 50 ML IV ONE (07:00)
[2023-04-28 07:11] LABS: Hematocrit (blood only) 36.9 % (37.0-47.0); Hemoglobin 12.4 g/dl (12.0-16.0); Mean Corpuscular Hemoglobin 31.7 pg (25.0-34.0); Mean Corpuscular Hgb Conc 33.6 g/dL (32.0-36.0); Mean Corpuscular Volume 94.4 fL (80.0-100.0); Mean Platelet Volume 10.1 fL (9.4-12.4); Platelet Count 171 K/uL (130-400); RDW Coefficient of Variation 12.5 % (11.5-14.5); RDW Standard Deviation 43.5 fL (36.4-46.3); Red Blood Count 3.91 M/uL (4.20-5.40); White Blood Count 15.08 K/ul (4.8-10.8)
--- NOTE | 2023-04-28 07:29 | Critical Care Progress Note ---
Date of Service April 28, 2023 Assessment & Plan (1) Septic shock: Plan: Reason Critically Ill: 67-year-old female presents to the ICU with septic shock secondary to pyelonephritis/cystitis, currently requiring vasopressor support with Levophed drip. 24-hour events: Patient mated to the ICU. She was initiated on vasopressor agents. These are running through small bore peripheral IVs. Her doses actually had to be escalated. She is making urine but is had an increase in serum creatinine this morning. She is persistently febrile. Recommendations Neuro -no current issues. Continue to follow clinically. Continue her outpatient medications. Cardiac -presumed septic shock. She is hypotensive but her lactate is cleared. Given her poor IV access we will proceed with central line placement as her pressor doses appear to be increasing. We will also place an arterial line for closer hemodynamic monitoring. Initiate midodrine in an effort to try and get off of vasopressor agents. We will also treat relative adrenal insufficiency given her septic shock. Echocardiogram is pending. Respiratory -continue oxygen to maintain saturations at or above 90%. No other issues GI -tolerating a diet. Continue H2 pasquale. We will be very judicious if the patient's pressor requirements increase RENAL/LYTES -increase in serum creatinine today likely secondary to ATN/renal hypoperfusion. We will repeat BMP later this afternoon. Non-anion gap metabol ic acidosis likely secondary to extensive crystalloid administration. We will give 1 amp of bicarb and recheck later - Foleystrict I's and O's ENDO - glycemic control per protocol. Hold Ozempic. Steroids for relative adrenal insufficiency (hydrocortisone 50 IV every 6 and Florinef p.o. HEME - H&H stable, monitor routine CBC ID -presumptive pyelonephritis. Suspect the patient may be febrile for several days with a cyclical pattern. No evidence of perinephric abscess or stone. De- escalate antibiotics to Rocephin pending culture data and clinical response. Interestingly her procalcitonin was unremarkable/borderline LINES/IV ACCESS - Central line and arterial line placed 04/28/2023, Sanchez 04/27/2023 DVT PROPHYLAXIS - SCDDottie kaur I have personally spent 50 minutes of critical care time in the direct management of this patient. This is a life/limb threatening event. This includes time spent evaluating patient, direct bedside care, chart review, placing orders, interpretation of diagnostic studies, discussion with consultants, patient, and family members, as well as other required patient management activities. Patient was discussed on multidisciplinary rounds and care nurse as well as with patient at bedside This time is exclusive of all separately billable procedures, and teaching time and separate from and in addition to any other critical care service time. Thank you for allowing us to participate in the care of this patient. (2) Pyelonephritis: (3) Chronic diastolic CHF (congestive heart failure): (4) DM type 2 (diabetes mellitus, type 2): (5) Hyperlipidemia: (6) HTN (hypertension): (7) GERD (gastroesophageal reflux disease): Admission and Anticipated Discharge Date Admission Date: April 27, 2023 Subjective Patient seen and examined. EMR reviewed. Discussed with critical care CHRIS overnight. Patient has some chronic back pain. She denies any nausea or vomiting. She is remained on vasopressor agents overnight. She does not have any chest pain palpitations or shortness of breath. She remains persistently tachycardic and febrile. Review of Systems Review of Systems: All systems reviewed & are unremarkable except as noted in Subjective Physical Exam Constitutional: WD/WN, vitals as above Neck: trachea midline, no thyromegaly Respiratory: normal respiratory effort, lungs clear to auscultation Cardiovascular: Rate/Rhythm: regular rate and + tachycardic Heart Sounds: normal S1 and normal S2; no murmur Extremities: no edema Gastrointestinal (Abdomen): normal bowel sounds, soft, nontender, no hepatosplenomegaly Musculoskeletal: Extremities: extremities normal to inspection Skin: no rashes, warm and dry Neurologic: Nonfocal exam Lymphatic: no cervical lymphadenopathy Results & Data Results & Data Vital Signs (Past 12 Hours) Vital Signs Temp Pulse Pulse Resp BP BP Pulse Ox 04/28/23 06:33 38.4 C H 111 H 25 H 98/35 L 98 04/28/23 06:15 87 28 H 98 04/28/23 06:15 85/33 L 04/28/23 06:00 87 24 98 04/28/23 06:00 94/40 L 04/28/23 05:45 110 H 17 98 04/28/23 05:45 89/40 L 04/28/23 05:31 110 H 31 H 97 04/28/23 05:31 93/43 L 04/28/23 05:30 110 H 18 97 04/28/23 05:16 87/42 L 04/28/23 05:16 108 H 36 H 96 04/28/23 05:15 109 H 23 96 04/28/23 05:00 86 31 H 97 04/28/23 05:00 91/48 L 04/28/23 04:45 107 H 31 H 97 04/28/23 04:45 98/47 L 04/28/23 04:37 93/52 L 04/28/23 04:37 87 21 96 04/28/23 04:30 87 32 H 97 04/28/23 04:30 78/50 L 04/28/23 04:15 87 33 H 97 04/28/23 04:15 95/53 L 04/28/23 04:00 87 30 H 96 04/28/23 04:00 90/48 L 04/28/23 03:45 86 33 H 96 04/28/23 03:45 97/53 L 04/28/23 03:30 87 33 H 96 04/28/23 03:30 109/33 L 04/28/23 03:15 88 38 H 96 04/28/23 03:15 100/65 04/28/23 03:00 101 H 38 H 96 04/28/23 03:00 102/54 L 04/28/23 02:45 103 H 36 H 96 04/28/23 02:45 98/55 L 04/28/23 02:30 104 H 42 H 96 04/28/23 02:30 102/45 L 04/28/23 02:15 102 H 44 H 96 04/28/23 02:15 102/45 L 04/28/23 02:00 102 H 40 H 96 04/28/23 02:00 96/48 L 04/28/23 01:45 89 39 H 96 04/28/23 01:45 108/56 L 04/28/23 01:30 92 H 37 H 96 04/28/23 01:30 108/47 L 04/28/23 01:15 92 H 35 H 95 04/28/23 01:15 118/41 L 04/28/23 01:00 88 25 H 95 04/28/23 01:00 105/54 L 04/28/23 00:45 90 37 H 95 04/28/23 00:45 98/48 L 04/28/23 00:30 90 39 H 95 04/28/23 00:30 112/51 L 04/28/23 00:15 92 H 39 H 89 L 04/28/23 00:15 103/52 L 04/28/23 00:00 92 H 37 H 90 04/28/23 00:00 104/59 L 04/27/23 23:45 90 39 H 97 04/27/23 23:30 91 H 36 H 97 04/27/23 23:30 103/58 L 04/27/23 23:16 91 H 32 H 97 04/27/23 23:16 106/61 04/27/23 23:15 90 36 H 97 04/27/23 23:00 91 H 35 H 97 04/27/23 23:00 111/48 L 04/27/23 22:45 92 H 34 H 98 04/27/23 22:30 93 H 34 H 97 04/27/23 22:15 92 H 36 H 97 04/27/23 22:00 93 H 35 H 97 04/27/23 22:00 96/49 L 04/27/23 21:49 105/44 L 04/27/23 21:49 92 H 37 H 97 04/27/23 21:46 91 H 22 98 04/27/23 21:46 108/51 L 04/27/23 21:45 91 H 36 H 97 04/27/23 21:30 97 H 35 H 90 04/27/23 21:30 99/47 L 04/27/23 21:16 94 H 29 H 95 04/27/23 21:15 85/48 L 04/27/23 22:13 04/27/23 20:57 38.8 C H 92 H 37 H 71/45 L 93 04/27/23 20:40 37.1 C 97 H 28 H 74/43 L 97 04/27/23 20:00 36.5 C 94 H 30 H 94/60 L 98 04/27/23 19:50 95 H 35 H 100 04/27/23 19:45 95 H 31 H 88/58 L 99 04/27/23 19:40 93 H 30 H 98 04/27/23 19:30 92 H 34 H 98 04/27/23 19:30 85/46 L O2 Del Method O2 Flow Rate 04/28/23 06:33 Nasal Cannula 2 04/28/23 06:15 04/28/23 06:15 04/28/23 06:00 04/28/23 06:00 04/28/23 05:45 04/28/23 05:45 04/28/23 05:31 04/28/23 05:31 04/28/23 05:30 04/28/23 05:16 04/28/23 05:16 04/28/23 05:15 04/28/23 05:00 04/28/23 05:00 04/28/23 04:45 04/28/23 04:45 04/28/23 04:37 04/28/23 04:37 04/28/23 04:30 04/28/23 04:30 04/28/23 04:15 04/28/23 04:15 04/28/23 04:00 04/28/23 04:00 04/28/23 03:45 04/28/23 03:45 04/28/23 03:30 04/28/23 03:30 04/28/23 03:15 04/28/23 03:15 04/28/23 03:00 04/28/23 03:00 04/28/23 02:45 04/28/23 02:45 04/28/23 02:30 04/28/23 02:30 04/28/23 02:15 04/28/23 02:15 04/28/23 02:00 04/28/23 02:00 04/28/23 01:45 04/28/23 01:45 04/28/23 01:30 04/28/23 01:30 04/28/23 01:15 04/28/23 01:15 04/28/23 01:00 04/28/23 01:00 04/28/23 00:45 04/28/23 00:45 04/28/23 00:30 04/28/23 00:30 04/28/23 00:15 04/28/23 00:15 04/28/23 00:00 04/28/23 00:00 04/27/23 23:45 04/27/23 23:30 04/27/23 23:30 04/27/23 23:16 04/27/23 23:16 04/27/23 23:15 04/27/23 23:00 04/27/23 23:00 04/27/23 22:45 04/27/23 22:30 04/27/23 22:15 04/27/23 22:00 04/27/23 22:00 04/27/23 21:49 04/27/23 21:49 04/27/23 21:46 04/27/23 21:46 04/27/23 21:45 04/27/23 21:30 04/27/23 21:30 04/27/23 21:16 04/27/23 21:15 04/27/23 22:13 Nasal Cannula 2 04/27/23 20:57 Nasal Cannula 2 04/27/23 20:40 Nasal Cannula 2 04/27/23 20:00 Nasal Cannula 2 04/27/23 19:50 Nasal Cannula 2 04/27/23 19:45 Nasal Cannula 2 04/27/23 19:40 Nasal Cannula 2 04/27/23 19:30 04/27/23 19:30 Critical Care Results & Data Vital Signs (Past 12 Hours) Vital Signs Temp Pulse Pulse Resp BP BP Pulse Ox 04/28/23 06:33 38.4 C H 111 H 25 H 98/35 L 98 04/28/23 06:15 87 28 H 98 04/28/23 06:15 85/33 L 04/28/23 06:00 87 24 98 04/28/23 06:00 94/40 L 04/28/23 05:45 110 H 17 98 04/28/23 05:45 89/40 L 04/28/23 05:31 110 H 31 H 97 04/28/23 05:31 93/43 L 04/28/23 05:30 110 H 18 97 04/28/23 05:16 87/42 L 04/28/23 05:16 108 H 36 H 96 04/28/23 05:15 109 H 23 96 04/28/23 05:00 86 31 H 97 04/28/23 05:00 91/48 L 04/28/23 04:45 107 H 31 H 97 04/28/23 04:45 98/47 L 04/28/23 04:37 93/52 L 04/28/23 04:37 87 21 96 06/30/23 04:30 87 32 H 97 04/28/23 04:30 78/50 L 04/28/23 04:15 87 33 H 97 04/28/23 04:15 95/53 L 04/28/23 04:00 87 30 H 96 04/28/23 04:00 90/48 L 04/28/23 03:45 86 33 H 96 04/28/23 03:45 97/53 L 04/28/23 03:30 87 33 H 96 04/28/23 03:30 109/33 L 04/28/23 03:15 88 38 H 96 04/28/23 03:15 100/65 04/28/23 03:00 101 H 38 H 96 04/28/23 03:00 102/54 L 04/28/23 02:45 103 H 36 H 96 04/28/23 02:45 98/55 L 04/28/23 02:30 104 H 42 H 96 04/28/23 02:30 102/45 L 04/28/23 02:15 102 H 44 H 96 04/28/23 02:15 102/45 L 04/28/23 02:00 102 H 40 H 96 04/28/23 02:00 96/48 L 04/28/23 01:45 89 39 H 96 04/28/23 01:45 108/56 L 04/28/23 01:30 92 H 37 H 96 04/28/23 01:30 108/47 L 04/28/23 01:15 92 H 35 H 95 04/28/23 01:15 118/41 L 04/28/23 01:00 88 25 H 95 04/28/23 01:00 105/54 L 04/28/23 00:45 90 37 H 95 04/28/23 00:45 98/48 L 04/28/23 00:30 90 39 H 95 04/28/23 00:30 112/51 L 04/28/23 00:15 92 H 39 H 89 L 04/28/23 00:15 103/52 L 04/28/23 00:00 92 H 37 H 90 04/28/23 00:00 104/59 L 04/27/23 23:45 90 39 H 97 04/27/23 23:30 91 H 36 H 97 04/27/23 23:30 103/58 L 04/27/23 23:16 91 H 32 H 97 04/27/23 23:16 106/61 04/27/23 23:15 90 36 H 97 04/27/23 23:00 91 H 35 H 97 04/27/23 23:00 111/48 L 04/27/23 22:45 92 H 34 H 98 04/27/23 22:30 93 H 34 H 97 04/27/23 22:15 92 H 36 H 97 04/27/23 22:00 93 H 35 H 97 04/27/23 22:00 96/49 L 04/27/23 21:49 105/44 L 04/27/23 21:49 92 H 37 H 97 04/27/23 21:46 91 H 22 98 04/27/23 21:46 108/51 L 04/27/23 21:45 91 H 36 H 97 04/27/23 21:30 97 H 35 H 90 04/27/23 21:30 99/47 L 04/27/23 21:16 94 H 29 H 95 04/27/23 21:15 85/48 L 04/27/23 22:13 04/27/23 20:57 38.8 C H 92 H 37 H 71/45 L 93 04/27/23 20:40 37.1 C 97 H 28 H 74/43 L 97 04/27/23 20:00 36.5 C 94 H 30 H 94/60 L 98 04/27/23 19:50 95 H 35 H 100 04/27/23 19:45 95 H 31 H 88/58 L 99 04/27/23 19:40 93 H 30 H 98 04/27/23 19:30 92 H 34 H 98 04/27/23 19:30 85/46 L O2 Del Method O2 Flow Rate 04/28/23 06:33 Nasal Cannula 2 04/28/23 06:15 04/28/23 06:15 04/28/23 06:00 04/28/23 06:00 04/28/23 05:45 04/28/23 05:45 04/28/23 05:31 04/28/23 05:31 04/28/23 05:30 04/28/23 05:16 04/28/23 05:16 04/28/23 05:15 04/28/23 05:00 04/28/23 05:00 04/28/23 04:45 04/28/23 04:45 04/28/23 04:37 04/28/23 04:37 04/28/23 04:30 04/28/23 04:30 04/28/23 04:15 04/28/23 04:15 04/28/23 04:00 04/28/23 04:00 04/28/23 03:45 04/28/23 03:45 04/28/23 03:30 04/28/23 03:30 04/28/23 03:15 04/28/23 03:15 04/28/23 03:00 04/28/23 03:00 04/28/23 02:45 04/28/23 02:45 04/28/23 02:30 04/28/23 02:30 04/28/23 02:15 04/28/23 02:15 04/28/23 02:00 04/28/23 02:00 04/28/23 01:45 04/28/23 01:45 04/28/23 01:30 04/28/23 01:30 04/28/23 01:15 04/28/23 01:15 04/28/23 01:00 04/28/23 01:00 04/28/23 00:45 04/28/23 00:45 04/28/23 00:30 04/28/23 00:30 04/28/23 00:15 04/28/23 00:15 04/28/23 00:00 04/28/23 00:00 04/27/23 23:45 04/27/23 23:30 04/27/23 23:30 04/27/23 23:16 04/27/23 23:16 04/27/23 23:15 04/27/23 23:00 04/27/23 23:00 04/27/23 22:45 04/27/23 22:30 04/27/23 22:15 04/27/23 22:00 04/27/23 22:00 04/27/23 21:49 04/27/23 21:49 04/27/23 21:46 04/27/23 21:46 04/27/23 21:45 04/27/23 21:30 04/27/23 21:30 04/27/23 21:16 04/27/23 21:15 04/27/23 22:13 Nasal Cannula 2 04/27/23 20:57 Nasal Cannula 2 04/27/23 20:40 Nasal Cannula 2 04/27/23 20:00 Nasal Cannula 2 04/27/23 19:50 Nasal Cannula 2 04/27/23 19:45 Nasal Cannula 2 04/27/23 19:40 Nasal Cannula 2 04/27/23 19:30 04/27/23 19:30 Lab & Micro Results (Past 24 Hours) RBC 3.91 M/uL (4.20-5.40) L 04/28/23 WBC 15.08 K/ul (4.8-10.8) H 04/28/23 Hgb 12.4 g/dl (12.0-16.0) 04/28/23 Hct 36.9 % (37.0-47.0) L 04/28/23 MCV 94.4 fL (80.0-100.0) 04/28/23 MCH 31.7 pg (25.0-34.0) 04/28/23 MCHC 33.6 g/dL (32.0-36.0) 04/28/23 RDW Standard Deviation 43.5 fL (36.4-46.3) 04/28/23 RDW Coefficient of Variation 12.5 % (11.5-14.5) 04/28/23 Plt Count 171 K/uL (130-400) 04/28/23 MPV 10.1 fL (9.4-12.4) 04/28/23 Neutrophils (%) (Auto) 73.8 % 04/27/23 Lymphocytes (%) (Auto) 24.0 % 04/27/23 Monocytes # (Auto) 0.04 K/uL (0.11-0.59) L 04/27/23 Eosinophils # (Auto) 0.00 K/uL (0-0.50) 04/27/23 Immature Granulocyte % (Auto) 0.8 % 04/27/23 Neutrophils # (Auto) 2.61 K/uL (1.40-6.50) 04/27/23 Lymphocytes # (Auto) 0.85 K/uL (1.2-3.4) L 04/27/23 Monocytes # (Auto) 0.04 K/uL (0.11-0.59) L 04/27/23 Eosinophils # (Auto) 0.00 K/uL (0-0.50) 04/27/23 Basophils # (Auto) 0.01 K/uL (0-0.2) 04/27/23 Immature Granulocyte # (Auto) 0.03 K/uL (0.01-0.20) 3 Na 133 mmol/L (136-145) L 04/28/23 K 4.1 mmol/L (3.5-5.1) 04/28/23 Cl 106 mmol/L (98-107) 04/28/23 CO2 19 mmol/L (21-32) L 04/28/23 Anion Gap 8 (3-11) 04/28/23 BUN 22 mg/dl (6-23) 04/28/23 Creatinine 1.38 mg/dl (0.6-1.2) H 04/28/23 Estimated GFR ( Amer) 46.1 ml/min 04/28/23 Estimated GFR (Non-Af Amer) 39.7 ml/min 04/28/23 BUN/Creatinine Ratio 15.9 (10-20) 04/28/23 Glu 144 mg/dl (70-99(Fasting)) H 04/28/23 Ca 7.0 mg/dl (8.6-10.3) L 04/28/23 Phosphorus Level 3.4 mg/dl (2.5-4.9) 04/28/23 Total Bilirubin 0.4 mg/dl (0.2-1.0) 04/27/23 Direct Bilirubin 0.1 mg/dl (0-0.2) 04/27/23 AST 20 U/L (13-39) 04/27/23 ALT 23 U/L (7-52) 04/27/23 Alkaline Phosphatase 63 U/L (34-104) 04/27/23 TP 7.0 gm/dl (6.0-8.3) 04/27/23 Albumin 4.1 gm/dl (3.4-5.0) 04/27/23 Mg 1.4 mg/dl (1.7-2.4) L 04/28/23 05:40 Calcium Level 7.0 mg/dl (8.6-10.3) L 04/28/23 05:40 Prothromb Time International Ratio 1.0 (0.9-1.1) 04/27/23 15:5 2 Arterial Blood pH 7.35 (7.35-7.45) 04/27/23 15:53 Arterial Blood Partial Pressure CO2 38 mmHg (35-46) 04/27/23 15 :53 Arterial Blood Partial Pressure O2 69 mmHg (80-95) L 04/27/23 1 5:53 Arterial Blood HCO3 21 mmol/L (19-24) 04/27/23 15:53 Arterial Blood Base Excess -4.2 mEq/L (-9-1.8) 04/27/23 15:53 Arterial Blood Oxygen Saturation 95.5 % (90-95) H 04/27/23 15:5 3 Blood Gas Oxygen Given 2L O2 04/27/23 15:53 Jonah Test POS (Pos) 04/27/23 15:53 Diagnostic Findings (Past 24 Hours) Abdomen/Pelvis CT 04/27/23 14:38 CT SCAN OF THE ABDOMEN AND PELVIS WITH IV CONTRAST CLINICAL HISTORY: Generalized abdominal pain. Sepsis. COMPARISON STUDY: No priors. TECHNIQUE: Following the IV administration of 119 cc of Optiray 320, CT scan of the abdomen and pelvis is performed from the lung bases to the proximal femora. Images are reviewed in the axial, sagittal, and coronal planes. IV contrast was administered without complication. A dose lowering technique was utilized adhering to the principles of ALARA. FINDINGS: Lung bases: The heart is normal in size and without pericardial effusion. The lung bases are clear. There is a small hiatal hernia. Liver: The contrast-enhanced liver is normal in size, contour, and attenuation. There is mild intrahepatic biliary ductal dilatation. The hepatic veins and portal veins are patent. Gallbladder: Surgically absent noting clips in the gallbladder fossa. Spleen: Normal in size and attenuation. Pancreas: Unremarkable. Adrenal glands: Unremarkable. Kidneys: The contrast enhanced kidneys are normal in size and without hydronephrosis. Urothelial thickening and enhancement is seen involving both ureters. Urothelial thickening and enhancement is also seen in the renal pelvis bilaterally. This indicates ascending urinary tract infection with bilateral pyelitis/pyelonephritis. Heterogeneous enhancement is seen in the lower pole of the left kidney. There is mild nonspecific bilateral perinephric stranding. Scattered subcentimeter cortical hypodensities likely represent cysts but are too small for definitive characterization. Abdominal vasculature: The abdominal aorta is normal in course and caliber noting mild atherosclerotic calcification. Bowel: There is mild to moderate colonic fecal retention. No bowel obstruction is seen. There is liquid stool in the right colon. There are mildly inflamed loops of jejunum in the left midabdomen seen on axial images #188 and #206. The appendix is well-visualized and normal. Peritoneum: There is no intraperitoneal free air or abdominal ascites. Lymphadenopathy: None. Pelvic viscera: The bladder wall is thickened and hyperemic. The uterus is surgically absent. No adnexal lesion is seen. Skeletal structures: The skeletal structures are osteopenic. Postsurgical and spondylotic change is noted in the thoracic spine. No lytic or blastic lesions are seen. IMPRESSION: 1. There is evidence of cystitis with bilateral ascending urinary tract infection and pyelitis/pyelonephritis of the kidneys. Correlate with clinical findings and urinalysis. 2. There are mildly inflamed appearing loops of jejunum in the left mid abdomen. Correlate clinically for evidence of a nonspecific enteritis. 3. Additional findings as above. ACT 112: Negative or not required by law. Electronically signed by: Zev Raya M.D. 04/27/2023 3:43 PM Chest CTA 04/27/23 14:38 CT ANGIOGRAPHY OF THE CHEST, PULMONARY EMBOLUS PROTOCOL CLINICAL HISTORY: Sepsis. Hypertension. Evaluate for pulmonary embolus. COMPARISON STUDY: Chest CT August 03, 2016. TECHNIQUE: Following IV administration of 119 mL of Optiray, helical axial images of the chest were obtained utilizing the pulmonary embolus protocol. Maximal intensity projections and sagittal and coronal reformats were viewed on an independent 3D workstation. IV contrast was administered without complication. Automated exposure control was utilized for the study. A dose lowering technique was utilized adhering to the principles of ALARA. CT DOSE: 2308.91 mGy.cm FINDINGS: No pulmonary emboli are identified. There is no thoracic aortic dissection. Size of the heart is normal. There is a small hiatal hernia. Mildly enlarged mediastinal lymph nodes are stable to slightly decreased in size since CT of August 03, 2016. Index right paratracheal lymph node on image 173 of 229 measures 1.5 cm in short axis diameter. Central airways are patent. There is no pneumothorax or pleural effusion. There is no consolidation to suggest pneumonia. No acute fractures are identified within the bony thorax. The abdomen and pelvis CT will be reported separately. IMPRESSION: 1. No pulmonary emboli identified. 2. No acute intrathoracic findings. 3. Multiple mildly enlarged mediastinal lymph nodes, stable to slightly decreased in size since CT of August 03, 2016. Therefore, these are considered benign. ACT 112: Negative or not required by law. Electronically signed by: Reymundo Joel M.D. 04/27/2023 3:43 PM I & O Totals 24 Hours 04/27/23 04/28/23 04/29/23 06:59 06:59 06:59 Intake Total 8131.2 / 8131.2 Output Total 670 / 670 Balance 7461.2 / 7461.2 Cumulative 04/27/23 14:18 thru 04/28/23 06:49 Intake Total 8131.2 Output Total 670 Balance 7461.2 RT Ventilator Mngmt (Last Documented) Ventilator Ordered Settings Respiratory Rate 25 04/28/23 06:33 Ventilator - PT Measurements Respiratory Rate 25 Coding Level of Care Code 47265 CRITICAL CARE 1ST 30-74M Diagnoses Septic shock A41.9; R65.21 Pyelonephritis N12 Chronic diastolic CHF (congestive heart failure) I50.32 DM type 2 (diabetes mellitus, type 2) E11.9 Hyperlipidemia E78.5 HTN (hypertension) I10 Hypertension type: unspecified GERD (gastroesophageal reflux disease) K21.9 (6) HTN (hypertension) Hypertension type: unspecified Qualified Code(s): I10 - Essential (primary) hypertension
[2023-04-28] MEDS ORDERED: SODIUM BICARBONATE 8.4% INJ 50 MEQ/50 ML VIAL IV ONE (07:35)
[2023-04-28] MEDS: cefTRIAXone SODIUM 2,000 MG in DEXTROSE 5% 50 ML IV SCH (07:59)
[2023-04-28] MEDS: ICU Protocol for HYPERglycemia SCH ×4 (08:00→20:12)
[2023-04-28] MEDS: INSULIN ASPART PER UNIT CHARGE SC SCH ×4 (08:03→20:11)
[2023-04-28] MEDS: GABAPENTIN 300 MG CAP PO SCH ×3 (08:11→20:11)
[2023-04-28] MEDS: FERROUS SULFATE 325 MG TAB PO SCH ×2 (08:12→20:12)
[2023-04-28] MEDS: ATORVASTATIN 40 MG TAB PO SCH (08:12)
[2023-04-28] MEDS: FAMOTIDINE 20 MG TAB PO SCH ×2 (08:12→20:11)
[2023-04-28] MEDS: SERTRALINE HCL 100 MG TABLET PO SCH (08:12)
[2023-04-28] MEDS: NOREPINEPHRINE/D5W 4 MG/250 ML PLCT IV SCH ×2 (08:13→12:22)
[2023-04-28] MEDS: MIDODRINE HCL 2.5 MG TAB PO SCH ×3 (08:16→16:38)
[2023-04-28] MEDS: FLUDROCORTISONE ACETATE 0.1 MG TAB PO SCH (08:16)
--- NOTE | 2023-04-28 08:40 | Procedure Note ---
Procedure Note Date of Service April 28, 2023 Note CENTRAL LINE PROCEDURE NOTE: Procedure: Central Line Placement Provider: Luis Manuel Cortes MD Indication: Central Drug Administration, Poor Venous Access, Multiple Lab Draws Necessary, etc. Anesthesia: 4 mL lidocaine 1% Site: Right internal jugular Consent was signed and placed on the chart prior to procedure. Indication, risks, and benefits were explained at length. A time-out was completed verifying correct patient, procedure, site, positioning, and implants(s) or special equipment if applicable. Patients right neck was cleansed and draped in the typical sterile fashion using Chloraprep. The Internal Jugular Vein and Carotid Artery were identified using ultrasound. The superficial tissue was anesthetized using 4 mL of 1% lidocaine without epinephrine under direct visualization with the ultrasound. After adequate anesthetization was achieved, the Internal Jugular vein was cannulated under direct ultrasound guidance using an introducer needle on a syringe. Good venous blood return was maintained prior to removal of syringe from introducer needle. Using Seldinger Technique, a guide wire was advanced through the introducer needle without resistance. A small incision was made in penetrating fashion at the guide wire insertion site utilizing an 11 blade scalpel. The dilator was advanced to the vessel without resistance. The dilator was exchanged for the triple lumen catheter which was advanced into the vessel without resistance. The guide wire was removed intact from the catheter without issue. Claves were placed on each catheter tip with confirmation of good blood flow from each lumen. Each port was easily flushed with sterile saline. The catheter was placed at 20 cm and sutured in place. BioPatch was applied to the catheter and a sterile Tegaderm dressing was applied over the catheter with careful attention to sterility. Patient tolerated procedure well. No immediate complications were met. Post procedure x-ray was completed, placement was appropriate and no pneumothorax was noted. Estimated blood loss: 5 mL Coding CPT Codes Tubes, Drains, and Vasc Access - Tubes, Drains, and Vasc Access: [id number] Place catheter in vein superior or inferior vena cava ([id number]) Tubes, Drains, and Vasc Access - Tubes, Drains, and Vasc Access: [id number] Ultrasound Guidance For Vascular ([id number]) [facility] Procedure Codes (Charges) Tubes, Drains, and Vasc Access Procedure 1: Tubes, Drains, and Vasc Access: [id number] Place catheter in vein superior or inferior vena cava Procedure 2: Tubes, Drains, and Vasc Access: [id number] Ultrasound Guidance For Vascular
--- NOTE | 2023-04-28 08:43 | Procedure Note ---
Procedure Note Date of Service April 28, 2023 Note ARTERIAL LINE PROCEDURE NOTE: Procedure: Arterial Line Placement Provider: Luis Manuel Cortes MD Indication: Monitoring on Pressors Anesthesia: None Consent was signed and placed on the chart prior to procedure. Indication, risks, and benefits were explained at length. A time-out was completed verifying correct patient, procedure, site, positioning, and implant(s) or special equipment if applicable. Allens test was performed to ensure adequate perfusion. Patients right wrist was prepped and draped in the usual sterile fashion. Landmarks were easily palpable. A 20g Arrow arterial line was introduced into the right radial artery. Catheter was threaded, and the needle was removed with appropriate blood return. Good waveform was observed. The patient tolerated the procedure well. Blood Loss: Minimal Complications: None Coding CPT Codes Tubes, Drains, and Vasc Access - Tubes, Drains, and Vasc Access: [id number] Arterial Cath/Cannulation Sampling/Monitoring/Transfusion ([id number]) [facility] Procedure Codes (Charges) Tubes, Drains, and Vasc Access Procedure 1: Tubes, Drains, and Vasc Access: [id number] Arterial Cath/Cannulation Sampling/Monitoring/Transfusion
[2023-04-28] MEDS: ACETAMINOPHEN 325 MG TAB PO PRN ×2 (09:04→20:11)
--- NOTE | 2023-04-28 09:07 | XRay Report ---
XR chest 1V portable CLINICAL HISTORY: New right IJ central line TECHNIQUE: Single frontal radiograph of the chest was obtained. Comparison: Comparison is made to CTA chest 04/27/2023 FINDINGS: Right PICC terminates in the right atrium. The cardiomediastinal silhouette is normal. The lungs are clear. No evidence of pleural effusion or pneumothorax. IMPRESSION: Right PICC tip is in the right atrium and can be withdrawn approximately 3 cm for improved positionin g. ACT 112: Negative or not required by law. Electronically signed by: Fredy Jacobs M.D. 04/28/2023 9:06 AM
[2023-04-28] MEDS ORDERED: VANCOMYCIN HCL 750 MG in SODIUM CHLORIDE 0.9% 250 ML IV SCH (10:00)
[2023-04-28] MEDS: HYDROCORTISONE SOD 50 MG in SYRINGE 0 ML IV SCH ×3 (11:37→23:59)
[2023-04-28 14:54] LABS: BUN Creatinine Ratio 19.1 (10-20); Calcium 7.5 mg/dl (8.6-10.3); Creatinine Clr Calc Pharmacy 41.3 ml/min; Est GFR (African American) 49.1 ml/min; Est GFR (Non-African American) 42.3 ml/min; Potassium 3.8 mmol/L (3.5-5.1)
--- NOTE | 2023-04-28 14:59 | Hospitalist Progress Note ---
Date of Service April 28, 2023 Assessment & Plan (1) Severe sepsis: (2) Pyelonephritis: Plan: Septic shock Syncope Acute pyelonephritis Possible enteritis Mediastinal lymphadenopathy --Chest CTA:No pulmonary emboli identified. No acute intrathoracic findings. Multiple mildly enlarged mediastinal lymph nodes, stable to slightly decreased in size since CT of August 03, 2016. Therefore, these are considered benign. --ABD CT:There is evidence of cystitis with bilateral ascending urinary tract infection and pyelitis/pyelonephritis of the kidneys. Correlate with clinical findings and urinalysis. There are mildly inflamed appearing loops of jejunum in the left mid abdomen. Correlate clinically for evidence of a nonspecific enteritis. -- Blood cultures pending --Urine culture growing gram-negative bacilli --Lactate levels normalized Continue IV fluids, ceftriaxone Appreciate critical care input Continue Levophed Further evaluation of mediastinal lymphadenopathy as outpatient Obtain stool studies if develops diarrhea Continue to hold antihypertensives Also on midodrine, hydrocortisone Hypocalcemia Hypomagnesemia Replete electrolytes as needed Acute kidney injury Hold lisinopril Continue IV fluids Monitor renal function Avoid nephrotoxic agents as able Hypoxia Continue supplemental oxygen as needed Monitor (3) HTN (hypertension): Plan: Hold antihypertensives for now (4) DM type 2 (diabetes mellitus, type 2): Plan: Hgb A1c 6.4 02/2023 Hold Ozempic and utilize NovoLog per protocol while hospitalized Monitor BGs (5) Chronic diastolic CHF (congestive heart failure): Plan: --ECHO: Left ventricle is normal in size. Mild concentric LVH. Left ventricle wall motion is normal. EF 65 to 70%. Grade 1 diastolic dysfunction. No significant valvular disease noted. Findings do not suggest pulmonary hypertension. Is not on routine diuretics Monitor volume status closely (6) Hyperlipidemia: Plan: Continue statin Morbid obesity BMI 40 DVT Px SQ Lovenox Admission and Anticipated Discharge Date Admission Date: April 27, 2023 Subjective Patient is seen and examined at bedside Sleepy during my encounter but easily awakes Offers no complaints this morning Currently on pressors Denies any chest pain, dyspnea, dizziness, nausea, abdominal pain Review of Systems Review of Systems: All systems reviewed & are unremarkable except as noted in Subjective Physical Exam Physical Exam: Physical Exam: Vitals signs as noted above General Appearance:Obese, no apparent distress Head: normocephalic, Atraumatic Eyes: normal inspection, EOMI Neck: supple, Trachea midline Respiratory/Chest: Normal breath sounds, CTA, No accessory muscle use Cardiovascular: S1, S2, No murmur Abdomen/GI:Soft, Non tender, Bowel sounds present Extremities/Musculoskeletal:normal inspection, no edema Neurologic/Psych:AAO, grossly no focal neurological deficits Skin: normal color, warm Results & Data Results & Data Vital Signs (Past 12 Hours) Vital Signs Temp Pulse Pulse Resp BP BP Pulse Ox 04/28/23 14:45 84 23 94 04/28/23 14:30 85 20 95 04/28/23 14:15 83 20 95 04/28/23 14:00 84 21 95 04/28/23 13:45 37.4 C 83 20 95 04/28/23 13:30 84 23 95 04/28/23 13:15 88 20 95 04/28/23 13:00 85 20 95 04/28/23 12:45 85 20 95 04/28/23 12:30 87 20 94 04/28/23 12:15 88 20 94 04/28/23 12:00 90 20 94 04/28/23 11:45 91 H 20 94 04/28/23 11:30 37.9 C H 88 20 96 04/28/23 11:15 88 20 95 04/28/23 11:00 88 20 95 04/28/23 11:30 04/28/23 09:03 108/54 L 04/28/23 09:03 94 H 35 H 92 04/28/23 09:00 95 H 33 H 92 04/28/23 08:30 102/48 L 04/28/23 08:30 92 H 27 H 98 04/28/23 08:15 103/50 L 04/28/23 08:15 87 35 H 100 04/28/23 08:00 87 29 H 99 04/28/23 08:00 106/46 L 04/28/23 07:46 87/56 L 04/28/23 07:46 110 H 34 H 96 04/28/23 07:42 112 H 39 H 98 04/28/23 07:42 100/46 L 04/28/23 07:39 79/47 L 04/28/23 07:39 113 H 33 H 98 04/28/23 07:00 109 H 31 H 97 04/28/23 08:00 37.7 C H 04/28/23 06:33 38.4 C H 111 H 25 H 98/35 L 98 04/28/23 06:15 87 28 H 98 04/28/23 06:15 85/33 L 04/28/23 06:00 87 24 98 04/28/23 06:00 94/40 L 04/28/23 05:45 110 H 17 98 04/28/23 05:45 89/40 L 04/28/23 05:31 110 H 31 H 97 04/28/23 05:31 93/43 L 04/28/23 05:30 110 H 18 97 04/28/23 05:16 87/42 L 04/28/23 05:16 108 H 36 H 96 04/28/23 05:15 109 H 23 96 04/28/23 05:00 86 31 H 97 04/28/23 05:00 91/48 L 04/28/23 04:45 107 H 31 H 97 04/28/23 04:45 98/47 L 04/28/23 04:37 93/52 L 04/28/23 04:37 87 21 96 04/28/23 04:30 87 32 H 97 04/28/23 04:30 78/50 L 04/28/23 04:15 87 33 H 97 04/28/23 04:15 95/53 L 04/28/23 04:00 87 30 H 96 04/28/23 04:00 90/48 L 04/28/23 03:45 86 33 H 96 04/28/23 03:45 97/53 L 04/28/23 03:30 87 33 H 96 04/28/23 03:30 109/33 L 04/28/23 03:15 88 38 H 96 04/28/23 03:15 100/65 04/28/23 03:00 101 H 38 H 96 04/28/23 03:00 102/54 L O2 Del Method O2 Flow Rate 04/28/23 14:45 04/28/23 14:30 Nasal Cannula 2 04/28/23 14:15 04/28/23 14:00 04/28/23 13:45 Nasal Cannula 2 04/28/23 13:30 04/28/23 13:15 04/28/23 13:00 04/28/23 12:45 Nasal Cannula 2 04/28/23 12:30 04/28/23 12:15 04/28/23 12:00 04/28/23 11:45 04/28/23 11:30 04/28/23 11:15 04/28/23 11:00 Nasal Cannula 2 04/28/23 11:30 Nasal Cannula 2 04/28/23 09:03 04/28/23 09:03 04/28/23 09:00 04/28/23 08:30 04/28/23 08:30 04/28/23 08:15 04/28/23 08:15 04/28/23 08:00 04/28/23 08:00 04/28/23 07:46 04/28/23 07:46 04/28/23 07:42 04/28/23 07:42 04/28/23 07:39 04/28/23 07:39 04/28/23 07:00 04/28/23 08:00 04/28/23 06:33 Nasal Cannula 2 04/28/23 06:15 04/28/23 06:15 04/28/23 06:00 04/28/23 06:00 04/28/23 05:45 04/28/23 05:45 04/28/23 05:31 04/28/23 05:31 04/28/23 05:30 04/28/23 05:16 04/28/23 05:16 04/28/23 05:15 04/28/23 05:00 04/28/23 05:00 04/28/23 04:45 04/28/23 04:45 04/28/23 04:37 04/28/23 04:37 04/28/23 04:30 04/28/23 04:30 04/28/23 04:15 04/28/23 04:15 04/28/23 04:00 04/28/23 04:00 04/28/23 03:45 04/28/23 03:45 04/28/23 03:30 04/28/23 03:30 04/28/23 03:15 04/28/23 03:15 04/28/23 03:00 04/28/23 03:00 Laboratory Results Short CBC 04/27/23 04/28/23 Range/Units 15:13 05:40 WBC 3.54 L 15.08 H D (4.8-10.8) K/ul Hgb 15.5 12.4 D (12.0-16.0) g/dl Hct 45.4 36.9 L (37.0-47.0) % Plt Count 141 171 (130-400) K/uL BMP 04/27/23 04/27/23 04/28/23 15:13 21:43 05:40 Sodium 138 135 L 133 L Potassium 3.8 4.0 4.1 Chloride 106 107 106 Carbon Dioxide 19 L 19 L 19 L BUN 20 19 22 Creatinine 1.10 1.27 H 1.38 H Glucose 194 H 147 H 144 H Calcium 9.3 7.7 L 7.0 L 04/28/23 13:57 Sodium 134 L Potassium 3.8 Chloride 106 Carbon Dioxide 21 BUN 25 H Creatinine 1.31 H Glucose 213 H Calcium 7.5 L Liver Function 04/27/23 Range/Units 15:13 Total Bilirubin 0.4 (0.2-1.0) mg/dl Direct Bilirubin 0.1 (0-0.2) mg/dl AST 20 (13-39) U/L ALT 23 (7-52) U/L Alkaline Phosphatase 63 (34-104) U/L Albumin 4.1 (3.4-5.0) gm/dl Urine 04/27/23 Range/Units 16:00 Urine Color Yellow Urine Appearance Turbid A (Clear) Urine pH 6.0 (4.5-7.5) Ur Specific [place] > 1.045 H (1.000-1.030) Urine Protein 2+ H (Negative) Urine Glucose (UA) Negative (Negative) (3) HTN (hypertension) Hypertension type: unspecified Qualified Code(s): I10 - Essential (primary) hypertension
--- NOTE | 2023-04-28 15:17 | Electrocardiogram Report ---
Test Reason : Blood Pressure : / mmHG Vent. Rate : 096 BPM Atrial Rate : 096 BPM P-R Int : 128 ms QRS Dur : 076 ms QT Int : 352 ms P-R-T Axes : 000 026 014 degrees QTc Int : 444 ms Normal sinus rhythm Nonspecific ST abnormality Abnormal ECG When compared with ECG of 02-AUG-2016 22:32, Vent. rate has increased BY 40 BPM T wave amplitude has decreased in Lateral leads Confirmed by Sanjay Saravia ([id number]) on 04/28/2023 3:17:08 PM Referred By: REFERRED SELF Confirmed By:Sanjay Saravia
[2023-04-28] MEDS: traZODone HCL 50 MG TAB PO SCH (20:12)
[2023-04-28] MEDS: ENOXAPARIN INJ 40 MG/0.4 ML SYR SQ SCH (21:30)
[2023-04-29] MEDS: HYDROCORTISONE SOD 50 MG in SYRINGE 0 ML IV SCH ×3 (05:56→21:43)
[2023-04-29] MEDS: ACETAMINOPHEN 325 MG TAB PO PRN (05:56)
[2023-04-29] MEDS: PLASMA-LYTE A 1,000 ML IV SCH (05:57)
[2023-04-29 06:11] LABS: Hematocrit (blood only) 32.6 % (37.0-47.0); Hemoglobin 11.4 g/dl (12.0-16.0); Mean Corpuscular Hemoglobin 32.4 pg (25.0-34.0); Mean Corpuscular Volume 92.6 fL (80.0-100.0); Mean Platelet Volume 10.3 fL (9.4-12.4); Platelet Count 127 K/uL (130-400); RDW Coefficient of Variation 12.4 % (11.5-14.5); RDW Standard Deviation 41.6 fL (36.4-46.3); Red Blood Count 3.52 M/uL (4.20-5.40)
[2023-04-29 06:27] LABS: BUN Creatinine Ratio 21.5 (10-20); Calcium 7.3 mg/dl (8.6-10.3); Creatinine Clr Calc Pharmacy 67.4 ml/min; Est GFR (African American) 90.4 ml/min; Magnesium 2.2 mg/dl (1.7-2.4); Phosphorus 2.6 mg/dl (2.5-4.9); Potassium 3.4 mmol/L (3.5-5.1)
[2023-04-29 06:36] LABS: Basophils # (auto) 0.01 K/uL (0-0.2); Basophils % (auto) 0.1 %; Dohle Bodies 2+; Eosinophils # (auto) 0.06 K/uL (0-0.50); Eosinophils % (auto) 0.6 %; Immature Granulocytes # (auto) 0.04 K/uL (0.01-0.20); Immature Granulocytes % (auto) 0.4 %; Lymphocytes # (auto) 0.41 K/uL (1.2-3.4); Lymphocytes % (auto) 4.4 %; Monocytes # (auto) 0.42 K/uL (0.11-0.59); Monocytes % (auto) 4.5 %; Neutrophils # (auto) 8.46 K/uL (1.40-6.50); Toxic Vacuolation 1+
[2023-04-29] MEDS ORDERED: POTASSIUM CHLORIDE / WTR 20 MEQ/100 ML PLCT IV SCH (06:45)
--- NOTE | 2023-04-29 07:14 | Critical Care Progress Note ---
Date of Service April 29, 2023 Assessment & Plan (1) Septic shock: Plan: Reason Critically Ill: 67-year-old female presents to the ICU with septic shock secondary to pyelonephritis/cystitis, requiring vasopressor support with Levophed drip. 24-hour events: Patient underwent central line and arterial line placement yesterday. Hydrocortisone and midodrine were initiated. She has been weaned off vasopressor agents. She tolerating a diet. She is up to bed to the chair yesterday. She had her urine culture resulted which reveals E. coli sensitive to Rocephin Recommendations Neuro -no current issues. Continue to follow clinically. Continue her outpatient medications. Cardiac -presumed septic shock now resolved and off pressors. Continue midodrine until blood pressure issues resolve completely. Echocardiogram showed an EF of 65 to 70% with mild concentric LVH grade 1 diastolic dysfunction and no significant valvular disease. Discontinue IV fluids Respiratory -on room air. No issues GI -tolerating a diet. Continue H2 pasquale. RENAL/LYTES -serum creatinine improved this morning. Electrolytes okay. Acid- base status improved. Replete potassium and calcium - Discontinue Sanchez ENDO - glycemic control per protocol. Hold Ozempic. We will start during steroids with anticipate weaning them off over the next 2 to 3 days HEME - H&H stable, monitor routine CBC ID -E. coli pyelonephritis. Continue Rocephin. LINES/IV ACCESS - Central line and arterial line placed 04/28/2023, Sanchez 04/27/2023 DVT PROPHYLAXIS - SCDs, Lovenox Patient appears clinically improved. She is hemodynamically stable. She can transfer out of the ICU. Critical care services will sign off at this time. Feel free to contact us with questions or concerns. (2) Pyelonephritis: (3) Chronic diastolic CHF (congestive heart failure): (4) DM type 2 (diabetes mellitus, type 2): (5) Hyperlipidemia: (6) HTN (hypertension): (7) GERD (gastroesophageal reflux disease): Admission and Anticipated Discharge Date Admission Date: April 27, 2023 Subjective Patient seen and examined. EMR reviewed. Patient states that she did not sleep well last night. She is not having any back pain. No nausea or vomiting. No chest pain or palpitations. She is off oxygen. She been weaned off pressors Review of Systems Review of Systems: All systems reviewed & are unremarkable except as noted in Subjective Physical Exam Constitutional: WD/WN, vitals as above Neck: trachea midline, no thyromegaly Respiratory: normal respiratory effort, lungs clear to auscultation Cardiovascular: RRR, no murmur, no edema Rate/Rhythm: regular rate; not tachycardic Heart Sounds: normal S1 and normal S2; no murmur Extremities: no edema Gastrointestinal (Abdomen): normal bowel sounds, soft, nontender, no hepatosplenomegaly Musculoskeletal: Extremities: extremities normal to inspection Skin: no rashes, warm and dry Lymphatic: no cervical lymphadenopathy Results & Data Results & Data Vital Signs (Past 12 Hours) Vital Signs Temp Pulse Resp BP Pulse Ox O2 Del Method O2 Flow Rate 04/29/23 06:00 102/57 L 04/29/23 06:00 77 23 102/57 L 04/29/23 05:00 79 20 98/64 L 96 2 04/29/23 04:00 36.9 C 78 18 102/57 L 96 2 04/29/23 03:00 77 18 110/53 L 96 2 04/29/23 02:00 83 18 106/52 L 96 2 04/29/23 01:00 80 17 105/54 L 96 2 04/29/23 00:00 36.8 C 81 17 114/59 L 97 2 04/29/23 04:00 95 H 118/69 04/29/23 00:00 95 H 102/52 L 04/29/23 00:00 95 H 04/28/23 20:00 61 04/28/23 23:30 82 19 95 Nasal Cannula 2 04/28/23 23:00 85 20 90/47 L 93 2 04/28/23 22:30 86 20 93 Nasal Cannula 2 04/28/23 22:00 84 21 97/49 L 95 Room Air 04/28/23 21:35 86 18 110/54 L 95 04/28/23 21:30 97 H 20 93 Room Air 04/28/23 21:27 94 H 18 79/62 L 04/28/23 21:00 97 H 30 H 90 04/28/23 21:00 104/51 L 04/28/23 20:30 37.2 C 90 30 H 92 04/28/23 20:00 90 24 102/57 L 93 04/28/23 19:30 92 H 30 H 92 04/28/23 20:00 90 128/67 Critical Care Results & Data Vital Signs (Past 12 Hours) Vital Signs Temp Pulse Resp BP Pulse Ox O2 Del Method O2 Flow Rate 04/29/23 06:00 102/57 L 04/29/23 06:00 77 23 102/57 L 04/29/23 05:00 79 20 98/64 L 96 2 04/29/23 04:00 36.9 C 78 18 102/57 L 96 2 04/29/23 03:00 77 18 110/53 L 96 2 04/29/23 02:00 83 18 106/52 L 96 2 04/29/23 01:00 80 17 105/54 L 96 2 04/29/23 00:00 36.8 C 81 17 114/59 L 97 2 04/29/23 04:00 95 H 118/69 04/29/23 00:00 95 H 102/52 L 04/29/23 00:00 95 H 04/28/23 20:00 61 04/28/23 23:30 82 19 95 Nasal Cannula 2 04/28/23 23:00 85 20 90/47 L 93 2 04/28/23 22:30 86 20 93 Nasal Cannula 2 04/28/23 22:00 84 21 97/49 L 95 Room Air 04/28/23 21:35 86 18 110/54 L 95 04/28/23 21:30 97 H 20 93 Room Air 04/28/23 21:27 94 H 18 79/62 L 04/28/23 21:00 97 H 30 H 90 04/28/23 21:00 104/51 L 04/28/23 20:30 37.2 C 90 30 H 92 04/28/23 20:00 90 24 102/57 L 93 04/28/23 19:30 92 H 30 H 92 04/28/23 20:00 90 128/67 Lab & Micro Results (Past 24 Hours) RBC 3.52 M/uL (4.20-5.40) L 04/29/23 WBC 9.40 K/ul (4.8-10.8) 04/29/23 Hgb 11.4 g/dl (12.0-16.0) L 04/29/23 Hct 32.6 % (37.0-47.0) L 04/29/23 MCV 92.6 fL (80.0-100.0) 04/29/23 MCH 32.4 pg (25.0-34.0) 04/29/23 MCHC 35.0 g/dL (32.0-36.0) 04/29/23 RDW Standard Deviation 41.6 fL (36.4-46.3) 04/29/23 RDW Coefficient of Variation 12.4 % (11.5-14.5) 04/29/23 Plt Count 127 K/uL (130-400) L 04/29/23 MPV 10.3 fL (9.4-12.4) 04/29/23 Neutrophils (%) (Auto) 90.0 % 04/29/23 Lymphocytes (%) (Auto) 4.4 % 04/29/23 Monocytes # (Auto) 0.42 K/uL (0.11-0.59) 04/29/23 Eosinophils # (Auto) 0.06 K/uL (0-0.50) 04/29/23 Immature Granulocyte % (Auto) 0.4 % 04/29/23 Neutrophils # (Auto) 8.46 K/uL (1.40-6.50) H 04/29/23 Lymphocytes # (Auto) 0.41 K/uL (1.2-3.4) L 04/29/23 Monocytes # (Auto) 0.42 K/uL (0.11-0.59) 04/29/23 Eosinophils # (Auto) 0.06 K/uL (0-0.50) 04/29/23 Basophils # (Auto) 0.01 K/uL (0-0.2) 04/29/23 Immature Granulocyte # (Auto) 0.04 K/uL (0.01-0.20) 3 Toxic Vacuolation 1+ 04/29/23 Dohle Bodies 2+ 04/29/23 Na 138 mmol/L (136-145) 04/29/23 K 3.4 mmol/L (3.5-5.1) L 04/29/23 Cl 108 mmol/L (98-107) H 04/29/23 CO2 25 mmol/L (21-32) 04/29/23 Anion Gap 5 (3-11) 04/29/23 BUN 17 mg/dl (6-23) 04/29/23 Creatinine 0.79 mg/dl (0.6-1.2) 04/29/23 Estimated GFR ( Amer) 90.4 ml/min 04/29/23 Estimated GFR (Non-Af Amer) 78.0 ml/min 04/29/23 BUN/Creatinine Ratio 21.5 (10-20) H 04/29/23 Glu 142 mg/dl (70-99(Fasting)) H 04/29/23 Ca 7.3 mg/dl (8.6-10.3) L 04/29/23 Phosphorus Level 2.6 mg/dl (2.5-4.9) 04/29/23 Mg 2.2 mg/dl (1.7-2.4) 04/29/23 05:51 Calcium Level 7.3 mg/dl (8.6-10.3) L 04/29/23 05:51 Microbiology 04/27/23 16:00 Urine Culture - Preliminary Urine,Indwelling Cath Escherichia coli 04/27/23 15:13 Aerobic Blood Culture - Preliminary Blood No growth in Aerobic bottle after 24 hours. Anaerobic Blood Culture - Final 04/27/23 15:13 Aerobic Blood Culture - Preliminary Blood No growth in Aerobic bottle after 24 hours. Anaerobic Blood Culture - Final Diagnostic Findings (Past 24 Hours) Chest X-Ray 04/28/23 08:26 XR chest 1V portable CLINICAL HISTORY: New right IJ central line TECHNIQUE: Single frontal radiograph of the chest was obtained. Comparison: Comparison is made to CTA chest 04/27/2023 FINDINGS: Right PICC terminates in the right atrium. The cardiomediastinal silhouette is normal. The lungs are clear. No evidence of pleural effusion or pneumothorax. IMPRESSION: Right PICC tip is in the right atrium and can be withdrawn approximately 3 cm for improved positioning. ACT 112: Negative or not required by law. Electronically signed by: Fredy Jacobs M.D. 04/28/2023 9:06 AM I & O Totals 24 Hours 04/28/23 04/29/23 04/30/23 06:59 06:59 06:59 Intake Total 8131.2 / 8131.2 5098.737 / 5098.737 Output Total 670 / 670 3862 / 3862 Balance 7461.2 / 7461.2 1236.737 / 1236.737 Cumulative 04/27/23 14:18 thru 07/01/23 06:00 Intake Total 17299.937 Output Total 4532 Balance 8697.937 RT Ventilator Mngmt (Last Documented) Ventilator Ordered Settings Respiratory Rate 23 04/29/23 06:00 Ventilator - PT Measurements Respiratory Rate 23 Coding Level of Care Code 57205 SUB INP/OBS CARE 3/50MIN Diagnoses Septic shock A41.9; R65.21 Pyelonephritis N12 Chronic diastolic CHF (congestive heart failure) I50.32 DM type 2 (diabetes mellitus, type 2) E11.9 Hyperlipidemia E78.5 HTN (hypertension) I10 Hypertension type: unspecified GERD (gastroesophageal reflux disease) K21.9 (6) HTN (hypertension) Hypertension type: unspecified Qualified Code(s): I10 - Essential (primary) hypertension
[2023-04-29] MEDS ORDERED: POTASSIUM CHLORIDE CRTAB 20 MEQ TABCR PO STA ×2 (07:22)
[2023-04-29] MEDS ORDERED: STAT IV STA (07:22)
[2023-04-29] MEDS: NOREPINEPHRINE/D5W 4 MG/250 ML PLCT IV SCH (07:28)
[2023-04-29] MEDS ORDERED: CALCIUM GLUCONATE 10% 1,000 MG in DEXTROSE 5% 50 ML IV ONE (07:30)
[2023-04-29] MEDS: MIDODRINE HCL 2.5 MG TAB PO SCH ×3 (07:55→17:31)
[2023-04-29] MEDS: FERROUS SULFATE 325 MG TAB PO SCH ×2 (07:56→21:43)
[2023-04-29] MEDS: GABAPENTIN 300 MG CAP PO SCH ×3 (07:56→21:43)
[2023-04-29] MEDS: FLUDROCORTISONE ACETATE 0.1 MG TAB PO SCH (07:56)
[2023-04-29] MEDS: FAMOTIDINE 20 MG TAB PO SCH ×2 (07:56→21:43)
[2023-04-29] MEDS: ATORVASTATIN 40 MG TAB PO SCH (07:56)
[2023-04-29] MEDS: SERTRALINE HCL 100 MG TABLET PO SCH (07:57)
[2023-04-29] MEDS: ICU Protocol for HYPERglycemia SCH (08:00)
[2023-04-29] MEDS: cefTRIAXone SODIUM 2,000 MG in DEXTROSE 5% 50 ML IV SCH (08:01)
[2023-04-29] MEDS: INSULIN ASPART PER UNIT CHARGE SC SCH ×4 (08:03→21:38)
--- NOTE | 2023-04-29 16:41 | Hospitalist Progress Note ---
Date of Service April 29, 2023 Assessment & Plan (1) Severe sepsis: (2) Pyelonephritis: Plan: Septic shock Syncope Acute pyelonephritis Possible enteritis Mediastinal lymphadenopathy --Chest CTA:No pulmonary emboli identified. No acute intrathoracic findings. Multiple mildly enlarged mediastinal lymph nodes, stable to slightly decreased in size since CT of August 03, 2016. Therefore, these are considered benign. --ABD CT:There is evidence of cystitis with bilateral ascending urinary tract infection and pyelitis/pyelonephritis of the kidneys. Correlate with clinical findings and urinalysis. There are mildly inflamed appearing loops of jejunum in the left mid abdomen. Correlate clinically for evidence of a nonspecific enteritis. -- Blood cultures: Negative to date --Urine culture: E. coli i --Lactate levels normalized Continue IV fluids, ceftriaxone Appreciate critical care input Levophed discontinued Further evaluation of mediastinal lymphadenopathy as outpatient Obtain stool studies if develops diarrhea Continue to hold antihypertensives Also on midodrine, hydrocortisone--wean as able Transfer out of ICU Hypocalcemia Hypomagnesemia Replete electrolytes as needed Acute kidney injury Hold lisinopril Continue IV fluids Monitor renal function Avoid nephrotoxic agents as able Cr back to baseline Hypoxia Weaned off of supplemental oxygen Monitor (3) HTN (hypertension): Plan: Hold antihypertensives for now (4) DM type 2 (diabetes mellitus, type 2): Plan: Hgb A1c 6.4 02/2023 Hold Ozempic and utilize NovoLog per protocol while hospitalized Monitor BGs (5) Chronic diastolic CHF (congestive heart failure): Plan: --ECHO: Left ventricle is normal in size. Mild concentric LVH. Left ventricle wall motion is normal. EF 65 to 70%. Grade 1 diastolic dysfunction. No significant valvular disease noted. Findings do not suggest pulmonary hypertension. Is not on routine diuretics Monitor volume status closely (6) Hyperlipidemia: Plan: Continue statin Morbid obesity BMI 40 DVT Px SQ Lovenox Admission and Anticipated Discharge Date Admission Date: April 27, 2023 Subjective Patient is seen and examined at bedside More alert, awake today Offers no new complaints Off pressors Transfer out of ICU Poorly slept overnight Saturating low 90s on room air Denies any chest pain, dyspnea, dizziness, nausea, abdominal pain Review of Systems Review of Systems: All systems reviewed & are unremarkable except as noted in Subjective Physical Exam Physical Exam: Physical Exam: Vitals signs as noted above General Appearance:Obese, no apparent distress Head: normocephalic, Atraumatic Eyes: normal inspection, EOMI Neck: supple, Trachea midline Respiratory/Chest: Normal breath sounds, CTA, No accessory muscle use Cardiovascular: S1, S2, No murmur Abdomen/GI:Soft, Non tender, Bowel sounds present Extremities/Musculoskeletal:normal inspection, no edema Neurologic/Psych:AAOX3, grossly no focal neurological deficits Skin: normal color, warm Results & Data Results & Data Vital Signs (Past 12 Hours) Vital Signs Temp Pulse Pulse Resp BP BP Pulse Ox 04/29/23 16:00 74 04/29/23 11:00 36.8 C 71 18 114/71 91 04/29/23 10:00 102 H 20 04/29/23 08:50 112/56 L 04/29/23 08:50 79 21 04/29/23 08:00 73 13 04/29/23 07:00 36.5 C 107/60 04/29/23 07:00 83 16 91 04/29/23 06:49 81 20 93 04/29/23 06:49 84/65 L 04/29/23 06:45 86 16 96 04/29/23 08:00 102 H 04/29/23 06:00 102/57 L 04/29/23 06:00 77 23 102/57 L 04/29/23 05:00 79 20 98/64 L 96 O2 Del Method O2 Flow Rate 04/29/23 16:00 04/29/23 11:00 Room Air 04/29/23 10:00 04/29/23 08:50 04/29/23 08:50 04/29/23 08:00 04/29/23 07:00 04/29/23 07:00 04/29/23 06:49 04/29/23 06:49 04/29/23 06:45 04/29/23 08:00 04/29/23 06:00 04/29/23 06:00 04/29/23 05:00 2 Laboratory Results Short CBC 04/29/23 Range/Units 05:51 WBC 9.40 (4.8-10.8) K/ul Hgb 11.4 L (12.0-16.0) g/dl Hct 32.6 L (37.0-47.0) % Plt Count 127 L (130-400) K/uL BMP 04/29/23 05:51 Sodium 138 Potassium 3.4 L Chloride 108 H Carbon Dioxide 25 BUN 17 Creatinine 0.79 D Glucose 142 H Calcium 7.3 L (3) HTN (hypertension) Hypertension type: unspecified Qualified Code(s): I10 - Essential (primary) hypertension
[2023-04-29] MEDS: NSS + 20MEQ KCL 20 MEQ/1,000 ML BAG IV SCH (18:17)
[2023-04-29] MEDS: ENOXAPARIN INJ 40 MG/0.4 ML SYR SQ SCH (21:43)
[2023-04-29] MEDS: traZODone HCL 50 MG TAB PO SCH (21:49)
[2023-04-30] MEDS: NSS + 20MEQ KCL 20 MEQ/1,000 ML BAG IV SCH (03:58)
[2023-04-30 06:14] LABS: Hematocrit (blood only) 30.3 % (37.0-47.0); Hemoglobin 10.5 g/dl (12.0-16.0); Mean Corpuscular Hgb Conc 34.7 g/dL (32.0-36.0); Mean Corpuscular Volume 92.4 fL (80.0-100.0); Mean Platelet Volume 10.7 fL (9.4-12.4); Platelet Count 108 K/uL (130-400); RDW Coefficient of Variation 12.1 % (11.5-14.5); RDW Standard Deviation 41.2 fL (36.4-46.3); Red Blood Count 3.28 M/uL (4.20-5.40); White Blood Count 6.98 K/ul (4.8-10.8)
[2023-04-30] MEDS: HYDROCORTISONE SOD 50 MG in SYRINGE 0 ML IV SCH ×2 (06:16→13:18)
[2023-04-30 06:32] LABS: Creatinine Clr Calc Pharmacy 77.1 ml/min; Est GFR (African American) 101.1 ml/min; Est GFR (Non-African American) 87.3 ml/min; Magnesium 1.9 mg/dl (1.7-2.4); Phosphorus 2.2 mg/dl (2.5-4.9); Potassium 3.9 mmol/L (3.5-5.1)
[2023-04-30 06:39] LABS: Eosinophils # (auto) 0.04 K/uL (0-0.50); Eosinophils % (auto) 0.6 %; Immature Granulocytes # (auto) 0.04 K/uL (0.01-0.20); Immature Granulocytes % (auto) 0.6 %; Lymphocytes # (auto) 1.28 K/uL (1.2-3.4); Lymphocytes % (auto) 18.3 %; Monocytes # (auto) 0.42 K/uL (0.11-0.59); Neutrophils % (auto) 74.5 %
[2023-04-30] MEDS: FAMOTIDINE 20 MG TAB PO SCH ×2 (09:05→20:32)
[2023-04-30] MEDS: GABAPENTIN 300 MG CAP PO SCH ×3 (09:05→20:32)
[2023-04-30] MEDS: cefTRIAXone SODIUM 2,000 MG in DEXTROSE 5% 50 ML IV SCH (09:05)
[2023-04-30] MEDS: MIDODRINE HCL 2.5 MG TAB PO SCH ×3 (09:05→17:34)
[2023-04-30] MEDS: FLUDROCORTISONE ACETATE 0.1 MG TAB PO SCH (09:06)
[2023-04-30] MEDS: ATORVASTATIN 40 MG TAB PO SCH (09:06)
[2023-04-30] MEDS: SERTRALINE HCL 100 MG TABLET PO SCH (09:06)
[2023-04-30] MEDS: FERROUS SULFATE 325 MG TAB PO SCH ×2 (09:06→20:46)
[2023-04-30] MEDS: INSULIN ASPART PER UNIT CHARGE SC SCH ×4 (09:08→20:27)
[2023-04-30] MEDS ORDERED: CALCIUM GLUCONATE 10% 1,000 MG in DEXTROSE 5% 50 ML IV ONE (09:44)
[2023-04-30] MEDS ORDERED: STAT IV STA (09:44)
[2023-04-30] MEDS: POT PHOSPHATE MONOBASIC W/ SOD TAB PO SCH ×3 (11:33→20:32)
--- NOTE | 2023-04-30 16:23 | Hospitalist Progress Note ---
Date of Service April 30, 2023 Assessment & Plan (1) Severe sepsis: (2) Pyelonephritis: Plan: Septic shock Syncope Acute pyelonephritis Possible enteritis Mediastinal lymphadenopathy --Chest CTA:No pulmonary emboli identified. No acute intrathoracic findings. Multiple mildly enlarged mediastinal lymph nodes, stable to slightly decreased in size since CT of August 03, 2016. Therefore, these are considered benign. --ABD CT:There is evidence of cystitis with bilateral ascending urinary tract infection and pyelitis/pyelonephritis of the kidneys. Correlate with clinical findings and urinalysis. There are mildly inflamed appearing loops of jejunum in the left mid abdomen. Correlate clinically for evidence of a nonspecific enteritis. -- Blood cultures: Negative to date --Urine culture: E. coli --Lactate levels normalized Continue IV ceftriaxone Appreciate critical care input Levophed discontinued Further evaluation of mediastinal lymphadenopathy as outpatient Obtain stool studies if develops diarrhea Continue to hold antihypertensives Will wean hydrocortisone Continue midodrine for now Discontinued IV fluids BP much improved Hypocalcemia Hypomagnesemia Hypophosphatemia Replete electrolytes as needed Acute kidney injury Hold lisinopril Continue IV fluids Monitor renal function Avoid nephrotoxic agents as able Cr back to baseline Sinus bradycardia Given comorbidities, will obtain nocturnal oximetry study Will likely need sleep study as outpatient Hypoxia on presentation Weaned off of supplemental oxygen Monitor (3) HTN (hypertension): Plan: Hold antihypertensives for now (4) DM type 2 (diabetes mellitus, type 2): Plan: Hgb A1c 6.4 02/2023 Hold Ozempic and utilize NovoLog per protocol while hospitalized Monitor BGs (5) Chronic diastolic CHF (congestive heart failure): Plan: --ECHO: Left ventricle is normal in size. Mild concentric LVH. Left ventricle wall motion is normal. EF 65 to 70%. Grade 1 diastolic dysfunction. No significant valvular disease noted. Findings do not suggest pulmonary hypertension. Is not on routine diuretics Monitor volume status closely (6) Hyperlipidemia: Plan: Continue statin Morbid obesity BMI 41 DVT Px SQ Lovenox Admission and Anticipated Discharge Date Admission Date: April 27, 2023 Subjective Patient is seen and examined at bedside States feeling well today Blood pressure improved No new complaints Sinus bradycardia while asleep Denies any chest pain, dyspnea, dizziness, nausea, abdominal pain, dysuria, hematuria Review of Systems Review of Systems: All systems reviewed & are unremarkable except as noted in Subjective Physical Exam Physical Exam: Physical Exam: Vitals signs as noted above General Appearance:Obese, no apparent distress Head: normocephalic, Atraumatic Eyes: normal inspection, EOMI Neck: supple, Trachea midline Respiratory/Chest: Normal breath sounds, CTA, No accessory muscle use Cardiovascular: S1, S2, No murmur Abdomen/GI:Soft, Non tender, Bowel sounds present Extremities/Musculoskeletal:normal inspection, no edema Neurologic/Psych:AAOX3, grossly no focal neurological deficits Skin: normal color, warm Results & Data Results & Data Vital Signs (Past 12 Hours) Vital Signs Temp Pulse Pulse Resp BP Pulse Ox O2 Del Method 04/30/23 15:44 36.5 C 57 L 18 151/82 H 99 Room Air 04/30/23 15:41 57 L 04/30/23 08:00 65 04/30/23 11:39 36.8 C 55 L 17 123/75 95 Room Air 04/30/23 07:25 36.7 C 59 L 18 137/61 97 Room Air Laboratory Results Short CBC 04/30/23 Range/Units 05:37 WBC 6.98 (4.8-10.8) K/ul Hgb 10.5 L (12.0-16.0) g/dl Hct 30.3 L (37.0-47.0) % Plt Count 108 L (130-400) K/uL BMP 04/30/23 05:37 Sodium 141 Potassium 3.9 Chloride 112 H Carbon Dioxide 24 BUN 18 Creatinine 0.72 Glucose 112 H Calcium 8.0 L (3) HTN (hypertension) Hypertension type: unspecified Qualified Code(s): I10 - Essential (primary) hypertension
[2023-04-30] MEDS: ENOXAPARIN INJ 40 MG/0.4 ML SYR SQ SCH (20:32)
[2023-04-30] MEDS: traZODone HCL 50 MG TAB PO SCH (20:46)
[2023-05-01 05:36] LABS: Calcium 8.5 mg/dl (8.6-10.3); Creatinine Clr Calc Pharmacy 67.7 ml/min; Est GFR (African American) 86.4 ml/min; Est GFR (Non-African American) 74.6 ml/min; Phosphorus 2.5 mg/dl (2.5-4.9); Potassium 3.5 mmol/L (3.5-5.1)
[2023-05-01] MEDS: SERTRALINE HCL 100 MG TABLET PO SCH (08:32)
[2023-05-01] MEDS: FAMOTIDINE 20 MG TAB PO SCH (08:32)
[2023-05-01] MEDS: ATORVASTATIN 40 MG TAB PO SCH (08:32)
[2023-05-01] MEDS: FERROUS SULFATE 325 MG TAB PO SCH (08:32)
[2023-05-01] MEDS: GABAPENTIN 300 MG CAP PO SCH ×2 (08:32→13:29)
[2023-05-01] MEDS: POT PHOSPHATE MONOBASIC W/ SOD TAB PO SCH ×2 (08:32→12:42)
[2023-05-01] MEDS: INSULIN ASPART PER UNIT CHARGE SC SCH ×2 (08:34→12:43)
[2023-05-01] MEDS: cefTRIAXone SODIUM 2,000 MG in DEXTROSE 5% 50 ML IV SCH (08:37)
[2023-05-01] MEDS: MIDODRINE HCL 2.5 MG TAB PO SCH (08:38)
[2023-05-01] MEDS: FLUDROCORTISONE ACETATE 0.1 MG TAB PO SCH (08:39)
[2023-05-01] MEDS ORDERED: HYDROCORTISONE SOD 50 MG in SYRINGE 0 ML IV SCH (09:00)
--- NOTE | 2023-05-01 14:36 | Hospitalist Progress Note ---
Date of Service May 01, 2023 Assessment & Plan (1) Severe sepsis: (2) Pyelonephritis: Plan: Septic shock Syncope Acute pyelonephritis Possible enteritis Mediastinal lymphadenopathy --Chest CTA:No pulmonary emboli identified. No acute intrathoracic findings. Multiple mildly enlarged mediastinal lymph nodes, stable to slightly decreased in size since CT of August 03, 2016. Therefore, these are considered benign. --ABD CT:There is evidence of cystitis with bilateral ascending urinary tract infection and pyelitis/pyelonephritis of the kidneys. Correlate with clinical findings and urinalysis. There are mildly inflamed appearing loops of jejunum in the left mid abdomen. Correlate clinically for evidence of a nonspecific enteritis. -- Blood cultures: Negative to date --Urine culture: E. coli --Lactate levels normalized Continue IV ceftriaxone>> transition to p.o. antibiotics upon discharge Appreciate critical care input Levophed, IV hydrocortisone discontinued Midodrine discontinued as well given stable blood pressure Further evaluation of mediastinal lymphadenopathy as outpatient Continue to hold home antihypertensives IV fluids discontinued Plan to discharge home today Hypocalcemia Hypomagnesemia Hypophosphatemia Replete electrolytes as needed Acute kidney injury Held lisinopril Cr back to baseline Monitor renal function Avoid nephrotoxic agents as able Sinus bradycardia Held atenolol Oximetry study : No hypoxia noted Hypoxia on presentation Weaned off of supplemental oxygen Monitor (3) HTN (hypertension): Plan: Hold antihypertensives for now (4) DM type 2 (diabetes mellitus, type 2): Plan: Hgb A1c 6.4 02/2023 Hold Ozempic and utilize NovoLog per protocol while hospitalized Monitor BGs (5) Chronic diastolic CHF (congestive heart failure): Plan: --ECHO: Left ventricle is normal in size. Mild concentric LVH. Left ventricle wall motion is normal. EF 65 to 70%. Grade 1 diastolic dysfunction. No significant valvular disease noted. Findings do not suggest pulmonary hypertension. Is not on routine diuretics Monitor volume status closely (6) Hyperlipidemia: Plan: Continue statin Morbid obesity BMI 41 DVT Px SQ Lovenox Disposition Home Admission and Anticipated Discharge Date Admission Date: April 27, 2023 Subjective Patient is seen and examined at bedside Doing well today Blood pressure much improved No new complaints Had oximetry study overnight Denies any chest pain, dyspnea, dizziness, nausea, abdominal pain, dysuria, hematuria Eager to get discharged Review of Systems Review of Systems: All systems reviewed & are unremarkable except as noted in Subjective Physical Exam Physical Exam: Physical Exam: Vitals signs as noted above General Appearance:Obese, no apparent distress Head: normocephalic, Atraumatic Eyes: normal inspection, EOMI Neck: supple, Trachea midline Respiratory/Chest: Normal breath sounds, CTA, No accessory muscle use Cardiovascular: S1, S2, No murmur Abdomen/GI:Soft, Non tender, Bowel sounds present Extremities/Musculoskeletal:normal inspection, no edema Neurologic/Psych:AAOX3, grossly no focal neurological deficits Skin: normal color, warm Results & Data Results & Data Vital Signs (Past 12 Hours) Vital Signs Temp Pulse Pulse Pulse Resp BP Pulse Ox 05/01/23 11:41 36.8 C 63 16 156/96 H 96 05/01/23 08:38 37.0 C 65 17 137/83 95 05/01/23 07:59 61 05/01/23 03:45 37.0 C 77 16 126/73 92 O2 Del Method 05/01/23 11:41 Room Air 05/01/23 08:38 Room Air 05/01/23 07:59 05/01/23 03:45 Room Air Laboratory Results [facility] 05/01/23 04:48 Sodium 140 Potassium 3.5 Chloride 111 H Carbon Dioxide 25 BUN 23 Creatinine 0.82 Glucose 79 Calcium 8.5 L (3) HTN (hypertension) Hypertension type: unspecified Qualified Code(s): I10 - Essential (primary) hypertension
--- NOTE | 2023-05-01 15:55 | Discharge Summary ---
Date of Service May 01, 2023 Admission HPI Per Admitting Provider 67-year-old female with PMH DM type II, dyslipidemia, HTN, chronic diastolic CHF, MANN, GERD, osteoarthritis, DDD, neuropathy, tobacco use disorder, anxiety, and other problems listed below who presents to the ED after syncopal event today. History is obtained from the patient and review of outpatient PCP records. Patient states that a couple days ago she noted some mild hematuria and pressure with urination. She was seen by PCP yesterday and started on Bactrim for suspected UTI. Patient states she took her first dose this morning. 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 While in the waiting room, patient reports she got chills and was shaking. She started to feel very lightheaded and then subsequently passed out. There was no loss of bowel or bladder function.Patient denies chest pain and shortness of breath. Patient had 1 episode of vomiting in the ED, otherwise denies abdominal pain, diarrhea. Upon arrival, patient's BP 71/52, temp 38.5, tachycardic low 100s, initial lactate 2.4. BP improved with IVF. UA suggestive of UTI. CT ABD/pelvis showing evidence of cystitis with bilateral ascending urinary tract infection and pyelitis/pyelonephritis of the kidneys. Patient given Tylenol, IV Zosyn, IV Zofran. Admission Exam Per Admitting Provider Physical Exam Constitutional: WD/WN, vitals as above + obese; no acute distress Eyes: PERRL, conjunctivae normal, anicteric sclerae ENMT: external ear and nose normal, oropharynx normal Respiratory: normal respiratory effort, lungs clear to auscultation Cardiovascular: Rate/Rhythm: regular rate and regular rhythm Vessels: normal peripheral pulses Extremities: no edema Gastrointestinal (Abdomen): normal bowel sounds, soft, nontender, no hepatosplenomegaly Musculoskeletal: no cyanosis or clubbing, extremities motor strength 5/5 Skin: no rashes, warm and dry Neurologic: PERRL, EOMI, accommodation nl, no face palsy, no dysarthria Psychiatric: A+Ox3, euthymic affect Principal Diagnosis Septic shock Syncope Acute pyelonephritis Mediastinal lymphadenopathy Hypocalcemia Hypomagnesemia Hypophosphatemia Acute kidney injury Sinus Bradycardia Discharge Data Allergies Allergy/AdvReac Type Severity Reaction Status Date / Time No Known Allergies Allergy Mild Unverified 04/27/23 15:26 Consultations 04/27/23 15:51 ED Decision to Admit Stat 04/27/23 19:45 Consult Criminal Defense Attorney Routine Procedures Performed Laboratory Results WBC 6.98 K/ul (4.8-10.8) 04/30/23 05:37 RBC 3.28 M/uL (4.20-5.40) L 04/30/23 05:37 Hgb 10.5 g/dl (12.0-16.0) L 04/30/23 05:37 POC Hgb 16.0 g/dl (12.0-16.0) 04/27/23 15:13 Hct 30.3 % (37.0-47.0) L 04/30/23 05:37 POC Hct 47 % (37-47) 04/27/23 15:13 MCV 92.4 fL (80.0-100.0) 04/30/23 05:37 MCH 32.0 pg (25.0-34.0) 04/30/23 05:37 MCHC 34.7 g/dL (32.0-36.0) 04/30/23 05:37 RDW Std Deviation 41.2 fL (36.4-46.3) 04/30/23 05:37 RDW Coeff of [place] 12.1 % (11.5-14.5) 04/30/23 05:37 Plt Count 108 K/uL (130-400) L 04/30/23 05:37 MPV 10.7 fL (9.4-12.4) 04/30/23 05:37 Immature Gran % (Auto) 0.6 % 04/30/23 05:37 Neut % (Auto) 74.5 % 04/30/23 05:37 Lymph % (Auto) 18.3 % 04/30/23 05:37 Drew % (Auto) 6.0 % 04/30/23 05:37 Eos % (Auto) 0.6 % 04/30/23 05:37 Baso % (Auto) 0.0 % 04/30/23 05:37 Neut # (Auto) 5.20 K/uL (1.40-6.50) 04/30/23 05:37 Lymph # (Auto) 1.28 K/uL (1.2-3.4) 04/30/23 05:37 Drew # (Auto) 0.42 K/uL (0.11-0.59) 04/30/23 05:37 Eos # (Auto) 0.04 K/uL (0-0.50) 04/30/23 05:37 Baso # (Auto) 0.00 K/uL (0-0.2) 04/30/23 05:37 Immature Gran # (Auto) 0.04 K/uL (0.01-0.20) 04/30/23 05:37 Toxic Vacuolation 1+ 04/29/23 05:51 Dohle Bodies 2+ 04/29/23 05:51 PT 10.6 Seconds (9.0-12.0) 04/27/23 15:52 INR 1.0 (0.9-1.1) 04/27/23 15:52 APTT 22.5 Seconds (21.0-31.0) 04/27/23 15:52 PTT Ratio 0.8 04/27/23 15:52 ABG pH 7.35 (7.35-7.45) 04/27/23 15:53 ABG pCO2 38 mmHg (35-46) 04/27/23 15:53 ABG pO2 69 mmHg (80-95) L 04/27/23 15:53 ABG HCO3 21 mmol/L (19-24) 04/27/23 15:53 ABG O2 Saturation 95.5 % (90-95) H 04/27/23 15:53 ABG Base Excess -4.2 mEq/L (-9-1.8) 04/27/23 15:53 Jonah Test POS (Pos) 04/27/23 15:53 Oxygen Given 2L O2 04/27/23 15:53 POC Sodium 135 mmol/L (135-144) 04/27/23 15:13 Sodium 140 mmol/L (136-145) 05/01/23 04:48 POC Potassium 6.0 mmol/L (3.3-5.0) H 04/27/23 15:13 Potassium 3.5 mmol/L (3.5-5.1) 05/01/23 04:48 POC Chloride 110 mmol/L (101-112) 04/27/23 15:13 Chloride 111 mmol/L (98-107) H 05/01/23 04:48 Carbon Dioxide 25 mmol/L (21-32) 05/01/23 04:48 POC Total CO2 18 mmol/L (24-31) L 04/27/23 15:13 Anion Gap 4 (3-11) 05/01/23 04:48 POC Anion Gap 14.0 mmol/L (16-25) L 04/27/23 15:13 POC BUN 29 mg/dl (7-18) H 04/27/23 15:13 BUN 23 mg/dl (6-23) 05/01/23 04:48 Creatinine 0.82 mg/dl (0.6-1.2) 05/01/23 04:48 POC Creatinine 0.9 mg/dl (0.6-1.3) 04/27/23 15:13 Est Cr Clr Drug Dosing 67.7 ml/min 05/01/23 04:48 Est GFR ( Amer) 86.4 ml/min 05/01/23 04:48 Est GFR (Non-Af Amer) 74.6 ml/min 05/01/23 04:48 BUN/Creatinine Ratio 28.0 (10-20) H 05/01/23 04:48 Glucose 79 mg/dl (70-99(Fasting)) 05/01/23 04:48 POC Glucose 223 mg/dl (70-99) H 05/01/23 11:26 POC Glucose (other) 177 mg/dl (70-99) H 04/27/23 15:13 Lactate 1.7 mmol/L (0.4-2.0) 04/28/23 05:40 Calcium 8.5 mg/dl (8.6-10.3) L 05/01/23 04:48 POC Ioniz Calcium [place] 0.86 mmol/l (1.12-1.32) L 04/27/23 15:13 Phosphorus 2.5 mg/dl (2.5-4.9) 05/01/23 04:48 Magnesium 1.9 mg/dl (1.7-2.4) 04/30/23 05:37 Total Bilirubin 0.4 mg/dl (0.2-1.0) 04/27/23 15:13 Direct Bilirubin 0.1 mg/dl (0-0.2) 04/27/23 15:13 AST 20 U/L (13-39) 04/27/23 15:13 ALT 23 U/L (7-52) 04/27/23 15:13 Alkaline Phosphatase 63 U/L (34-104) 04/27/23 15:13 Troponin I High Sens 5.7 pg/ml (0-14) 04/27/23 15:13 B-Natriuretic Peptide 49 pg/ml (0-100) 04/27/23 15:52 Total Protein 7.0 gm/dl (6.0-8.3) 04/27/23 15:13 Albumin 4.1 gm/dl (3.4-5.0) 04/27/23 15:13 Lipase 15 U/L (11-82) 04/27/23 21:43 Procalcitonin 0.45 ng/ml (0-0.5) 04/27/23 15:52 Random Cortisol 20.00 mcg/dl 04/27/23 15:52 Urine Color Yellow 04/27/23 16:00 Urine Appearance Turbid (Clear) A 04/27/23 16:00 Urine pH 6.0 (4.5-7.5) 04/27/23 16:00 Ur Specific [place] > 1.045 (1.000-1.030) H 04/27/23 16:00 Urine Protein 2+ (Negative) H 04/27/23 16:00 Urine Glucose (UA) Negative (Negative) 04/27/23 16:00 Urine Ketones Negative (Negative) 04/27/23 16:00 Urine Blood 2+ (Negative) H 04/27/23 16:00 Urine Nitrite Negative (Negative) 04/27/23 16:00 Urine Bilirubin Negative (Negative) 04/27/23 16:00 Urine Urobilinogen Negative (Negative) 04/27/23 16:00 Ur Leukocyte Esterase 3+ (Negative) H 04/27/23 16:00 Urine WBC (Auto) >30 /hpf (0-5) H 04/27/23 16:00 Urine RBC (Auto) 10-30 /hpf (0-4) H 04/27/23 16:00 U Hyaline Cast (Auto) 1-5 /lpf (0-5) 04/27/23 16:00 U Epithel Cells (Auto) >30 /lpf (0-5) H 04/27/23 16:00 Urine Bacteria (Auto) Negative (Negative) 04/27/23 16:00 Urine Yeast Not Reportable 04/27/23 16:00 Nasal Screen MRSA (PCR) Negative (Negative) 04/27/23 21:55 Hepatitis C Ab (EIA) NON-REACTIVE (NON-REACTIVE) 04/28/23 05:40 SARS-CoV-2, RNA, NAAT NEGATIVE (NEGATIVE) 04/27/23 15:02 Blood Type A Negative 04/27/23 15:52 Antibody Screen NEGATIVE 04/27/23 15:52 Impressions Abdomen/Pelvis CT 04/27/23 14:38 CT SCAN OF THE ABDOMEN AND PELVIS WITH IV CONTRAST CLINICAL HISTORY: Generalized abdominal pain. Sepsis. COMPARISON STUDY: No priors. TECHNIQUE: Following the IV administration of 119 cc of Optiray 320, CT scan of the abdomen and pelvis is performed from the lung bases to the proximal femora. Images are reviewed in the axial, sagittal, and coronal planes. IV contrast was administered without complication. A dose lowering technique was utilized adh ering to the principles of ALARA. FINDINGS: Lung bases: The heart is normal in size and without pericardial effusion. The lung bases are clear. There is a small hiatal hernia. Liver: The contrast-enhanced liver is normal in size, contour, and attenuation. There is mild intrahepatic biliary ductal dilatation. The hepatic veins and portal veins are patent. Gallbladder: Surgically absent noting clips in the gallbladder fossa. Spleen: Normal in size and attenuation. Pancreas: Unremarkable. Adrenal glands: Unremarkable. Kidneys: The contrast enhanced kidneys are normal in size and without hydronephrosis. Urothelial thickening and enhancement is seen involving both ureters. Urothelial thickening and enhancement is also seen in the renal pelvis bilaterally. This indicates ascending urinary tract infection with bilateral pyelitis/pyelonephritis. Heterogeneous enhancement is seen in the lower pole of the left kidney. There is mild nonspecific bilateral perinephric stranding. Sca ttered subcentimeter cortical hypodensities likely represent cysts but are too small for definitive characterization. Abdominal vasculature: The abdominal aorta is normal in course and caliber notin g mild atherosclerotic calcification. Bowel: There is mild to moderate colonic fecal retention. No bowel obstruction is seen. There is liquid stool in the right colon. There are mildly inflamed loops of jejunum in the left midabdomen seen on axial images #188 and #206. The appendix is well-visualized and normal. Peritoneum: There is no intraperitoneal free air or abdominal ascites. Lymphadenopathy: None. Pelvic viscera: The bladder wall is thickened and hyperemic. The uterus is surgically absent. No adnexal lesion is seen. Skeletal structures: The skeletal structures are osteopenic. Postsurgical and spondylotic change is noted in the thoracic spine. No lytic or blastic lesions are seen. IMPRESSION: 1. There is evidence of cystitis with bilateral ascending urinary tract inf ection and pyelitis/pyelonephritis of the kidneys. Correlate with clinical findings and urinalysis. 2. There are mildly inflamed appearing loops of jejunum in the left mid abdomen. Correlate clinically for evidence of a nonspecific enteritis. 3. Additional findings as above. ACT 112: Negative or not required by law. Electronically signed by: Zev Raya M.D. 04/27/2023 3:43 PM Chest CTA 04/27/23 14:38 CT ANGIOGRAPHY OF THE CHEST, PULMONARY EMBOLUS PROTOCOL CLINICAL HISTORY: Sepsis. Hypertension. Evaluate for pulmonary embolus. COMPARISON STUDY: Chest CT August 03, 2016. TECHNIQUE: Following IV administration of 119 mL of Optiray, helical axial images of the chest were obtained utilizing the pulmonary embolus protocol. Maximal intensity projections and sagittal and coronal reformats were viewed on an independent 3D workstation. IV contrast was administered without complication. Automated exposure control was utilized for the study. A dose lowering technique was utilized adhering to the principles of ALARA. CT DOSE: 2308.91 mGy.cm FINDINGS: No pulmonary emboli are identified. There is no thoracic aortic dissection. Size of the heart is normal. There is a small hiatal hernia. Mildly enlarged mediastinal lymph nodes are stable to slightly decreased in size since CT of August 03, 2016. Index right paratracheal lymph node on image 173 of 229 measures 1.5 cm in short axis diameter. Central airways are patent. There is no pneumothorax or pleural effusion. There is no consolidation to suggest pneumonia. No acute fractures are identified within the bony thorax. The abdomen and pelvis CT will be reported separately. IMPRESSION: 1. No pulmonary emboli identified. 2. No acute intrathoracic findings. 3. Multiple mildly enlarged mediastinal lymph nodes, stable to slightly decreased in size since CT of August 03, 2016. Therefore, these are considered benign. ACT 112: Negative or not required by law. Electronically signed by: Reymundo Joel M.D. 04/27/2023 3:43 PM Chest X-Ray 04/28/23 08:26 XR chest 1V portable CLINICAL HISTORY: New right IJ central line TECHNIQUE: Single frontal radiograph of the chest was obtained. Comparison: Comparison is made to CTA chest 04/27/2023 FINDINGS: Right PICC terminates in the right atrium. The cardiomediastinal silhouette is normal. The lungs are clear. No evidence of pleural effusion or pneumothorax. IMPRESSION: Right PICC tip is in the right atrium and can be withdrawn approximately 3 cm for improved positioning. ACT 112: Negative or not required by law. Electronically signed by: Fredy Jacobs M.D. 04/28/2023 9:06 AM Ordered Studies 04/27/23 14:38 CT Abd and Pelvis [CT abd pelvis IV con only] Stat CT angio chest PE protocol Stat Hospital Course (1) Severe sepsis: (2) Pyelonephritis: Septic shock Syncope Acute pyelonephritis Possible enteritis Mediastinal lymphadenopathy --Chest CTA:No pulmonary emboli identified. No acute intrathoracic findings. Multiple mildly enlarged mediastinal lymph nodes, stable to slightly decreased in size since CT of August 03, 2016. Therefore, these are considered benign. --ABD CT:There is evidence of cystitis with bilateral ascending urinary tract infection and pyelitis/pyelonephritis of the kidneys. Correlate with clinical findings and urinalysis. There are mildly inflamed appearing loops of jejunum in the left mid abdomen. Correlate clinically for evidence of a nonspecific enteritis. -- Blood cultures: Negative to date --Urine culture: E. coli --Lactate levels normalized Continue IV ceftriaxone>> transition to p.o. antibiotics upon discharge Appreciate critical care input Levophed, IV hydrocortisone discontinued Midodrine discontinued as well given stable blood pressure Further evaluation of mediastinal lymphadenopathy as outpatient Continue to hold home antihypertensives IV fluids discontinued Plan to discharge home today Hypocalcemia Hypomagnesemia Hypophosphatemia Replete electrolytes as needed Acute kidney injury Held lisinopril Cr back to baseline Monitor renal function Avoid nephrotoxic agents as able Sinus bradycardia Held atenolol Oximetry study : No hypoxia noted Hypoxia on presentation Weaned off of supplemental oxygen Monitor (3) HTN (hypertension): Hold antihypertensives for now (4) DM type 2 (diabetes mellitus, type 2): Hgb A1c 6.4 02/2023 Hold Ozempic and utilize NovoLog per protocol while hospitalized Monitor BGs (5) Chronic diastolic CHF (congestive heart failure): --ECHO: Left ventricle is normal in size. Mild concentric LVH. Left ventricle wall motion is normal. EF 65 to 70%. Grade 1 diastolic dysfunction. No significant valvular disease noted. Findings do not suggest pulmonary hypertension. Is not on routine diuretics Monitor volume status closely (6) Hyperlipidemia: Continue statin Morbid obesity BMI 41 DVT Px SQ Lovenox Disposition Home Total Time Total Time Spent Total Time Spent (In Minutes): 55 minutes Discharge Plan Discharge Items Patient Disposition: Home - Self-Care Reason For Visit: UTI, SEPSIS Discharge Diagnosis: Septic shock Syncope Acute pyelonephritis Mediastinal lymphadenopathy Hypocalcemia Hypomagnesemia Hypophosphatemia Acute kidney injury Activity: Per Instructions section Exercise/Sports: Wait until after follow-up appointment Non-emergency contact: Primary Care Provider Call non-emergency contact if: you have any medication questions, your symptoms worsen, your pain is concerning for you and you have a fever Follow-up/Referrals: Elizabeth Combs MD [Primary Care Provider] - Diet: Carb Consistent or DM2 and Heart Healthy Addtl Attending Provider Instructions: Follow-up with your primary care physician on May 04, 2023 at 11:20 AM as scheduled --Your final blood cultures are pending at the time of discharge. Follow-up with your primary care physician with results. -- Complete the antibiotic course cefdinir as prescribed (Start taking from 05/02/23) --- Continue to hold your blood pressure medications atenolol, lisinopril. Monitor your blood pressure regularly at home as advised and discussed with your primary care physician for further recommendations to manage your blood pressure. Seek immediate medical attention if your symptoms reoccur or worsen Please take all medications as instructed on discharge list below. Please call if you have any questions or problems. You can reach a [facility] hospitalist on duty at [facility] 24 hours a day by calling [phone] Pending Studies at Discharge: Yes Studies:: Blood Cultures Stand-Alone Forms: [facility], Smoking Cessation Medications and DC Order Prescriptions: New cefdinir 300 mg capsule 300 mg PO BID Qty: 8 0RF Advanced Probiotic 625 mg (10 billion cell) Capsule 2 cap PO DAILY Qty: 30 0RF Continued multivitamin Tablet 1 tab PO QAM atorvastatin 40 mg tablet 40 mg PO QAM trazodone 50 mg tablet 50 mg PO HS famotidine 20 mg tablet 20 mg PO AMHS gabapentin 300 mg capsule 300 mg PO TID cholecalciferol (vitamin D3) [Vitamin D3] 50 mcg (2,000 unit) Capsule 50 mcg PO QAM varenicline [Chantix Starting Month Edward] 0.5 mg (11)- 1 mg (42) Tablets,Dose Pack 1 ea PO UD ferrous sulfate 325 mg (65 mg iron) Tablet 325 mg PO BID Ozempic 0.25 mg or 0.5 mg (2 mg/3 mL) pen injector 1 mg SUBCUT WK Calcium 600 + Minerals 600 mg calcium- 200 unit Tablet 2.5 tab PO DAILY sertraline 100 mg tablet 100 mg PO DAILY Held atenolol 50 mg tablet 50 mg PO QAM Hold Instructions: Follow up with your Primary care physician for further recommendations lisinopril 20 mg tablet 20 mg PO QAM Hold Instructions: Follow up with your Primary care physician for further recommendations Discontinued sulfamethoxazole-trimethoprim 800-160 mg tablet 1 tab PO BID Rx Instructions: ordered 04/26/23 take for 3 days end date 04/29/23 Discharge Orders: Discharge Order (Routine); Ordered 05/01/23 Ordered By: Reji Long/Other Patient Handouts: High Blood Sugar (Hyperglycemia), Hypoglycemia (Low Blood Sugar), Managing Type 2 Diabetes Admission Data Admit Date/Time: 04/27/23 16:17 Attending Provider: Reji Jauregui Admit Provider: Sonya Borden Primary Care Provider: Elizabeth Combs Other Providers: Sonya Borden ; Luis Manuel Cortes
[2023-05-02] MEDS ORDERED: ADVANCED PROBIOTIC 1250 MG CAPSULE PO SCH (09:00)
== END 2023-05-01 17:30 | disposition home or self-care (01) | DRG 871 ==
LOC: ED 14:30 → SUATTDRO 16:17 → 1E 16:17 → 4W 04-29 11:03